=== PATIENT | female | born 1980 | race Two or more races ===

== ENCOUNTER → 2020-02-11 09:54 | Outpatient (BNVA) | payer OTHER, SELFPAY | PROVIDERS: PCP Internal Medicine; Referring Provider Internal Medicine; Visit Provider Dietitian, Registered | DX: Z76.89 Persons encountering health services in other specified circumstances (principal) ==

== ENCOUNTER → 2020-04-14 10:54 | Outpatient (BNVA) | payer OTHER, SELFPAY | PROVIDERS: PCP Internal Medicine; Visit Provider Dietitian, Registered | DX: Z76.89 Persons encountering health services in other specified circumstances (principal) ==

== ENCOUNTER 2020-04-26 15:45 | Outpatient (REF) | payer OTHER, SELFPAY ==
[2020-04-26 16:26] LABS: MANUAL DIFF FLAG NO
[2020-04-26 16:30] LABS: Basophils Percent Auto 0.3 % (0-2); Eosinophils Absolute Auto 0.1 X10*3/uL (0.0-0.4); Eosinophils Percent Auto 1.4 % (0-4); Hematocrit 43.2 % (37-47); Hemoglobin 14.1 g/dl (12.0-16.0); Imm Gran Abs Auto 0.02 X10*3/uL (0.00-0.03); Imm Gran Pct Auto 0.3 % (0.0-0.4); Lymphocytes Absolute Auto 1.7 X10*3/uL (1.2-4.9); Mean Corpuscular HGB Conc 32.6 g/dl (31.0-35.0); Mean Corpuscular Hemoglobin 29.6 pg (27.0-33.0); Mean Corpuscular Volume 90.6 fL (80-98); Mean Platelet Volume 10.8 fL (9.4-12.3); Monocytes Absolute Auto 0.4 X10*3/uL (0.1-1.2); Monocytes Percent Auto 6.3 % (2-11); Neutrophils Absolute Auto 4.2 X10*3/uL (2.0-8.3); Neutrophils Percent Auto 65.7 % (45-73); Platelet Count 247 X10*3/uL (160-400); Red Blood Count 4.77 X10*6/uL (4.20-5.50); Red Cell Distribution Width 12.8 % (11.0-16.0); White Blood Count 6.5 X10*3/uL (4.8-10.8)
[2020-04-26 17:04] LABS: Alanine Aminotransferase 56 U/L (0-31); Albumin Level 4.6 g/dL (3.5-5.0); Alkaline Phosphatase 103 U/L (39-117); Anion Gap 10 (12-20); Aspartate Amino Transferase 32 U/L (5-31); Bilirubin Total 0.6 mg/dL (0.0-1.0); Blood Urea Nitrogen 13 mg/dL (9-16); Calcium 9.6 mg/dL (8.4-10.2); Carbon Dioxide 31 mmol/L (22-29); Chloride 100 mmol/L (96-108); Cholesterol 221 mg/dL; Estimated Glomerular Filt Rate > 60; Glucose Fasting 99 mg/dL (60-99); HDL Cholesterol 101 mg/dL; LDL Cholesterol Calculated 107 mg/dl; Potassium 4.2 mmol/l (3.3-5.1); Sodium 137 mmol/L (135-145); Total Protein 7.3 g/dL (6.5-8.0); Triglycerides 66 mg/dL
[2020-04-26 17:23] LABS: TSH reflex Free T4 0.34 mIU/mL (0.32-4.0)
== END 2020-04-26 15:46 | disposition home or self-care (01) ==
LOC: HO.LAB 15:45
PROVIDERS: PCP Internal Medicine; Visit Provider Internal Medicine
DX: E66.3 Overweight (principal)
CPT/HCPCS: 36415; 80053; 80061; 84443; 85025

== ENCOUNTER 2020-06-20 14:44 | Outpatient (REF) | payer OTHER, SELFPAY ==
[2020-06-21 07:47] LABS: Syphilis Screen Nonreactive (Nonreactive)
[2020-06-21 08:09] LABS: HBc Num1 0.03 S/CO (0.00-0.79); HIV AB/AG Nonreactive (Nonreactive); HIV Num 1 0.07 S/CO (0.00-0.99); Hepatitis B Core Antibody Nonreactive (Nonreactive); ~HepC Num1 0.05 S/CO (0.00-0.79); ~Hepatitis C Antibody Nonreactive (Nonreactive)
[2020-06-21 09:21] LABS: BV Int Neg Control Negative (Negative); BV Int Pos Control Positive (Positive)
[2020-06-21 14:52] LABS: C. trachomatis RNA TMA NOT DETECTED (NOT DETECTED); N. gonorrhoeae RNA TMA NOT DETECTED (NOT DETECTED)
== END 2020-06-20 14:45 | disposition home or self-care (01) ==
LOC: HO.LAB 14:44
PROVIDERS: PCP Internal Medicine; Visit Provider Advanced Practice Midwife
DX: Z01.419 Encounter for gynecological examination (general) (routine) without abnormal findings (principal); F98.8 Other specified behavioral and emotional disorders with onset usually occurring in childhood and adolescence; F41.8 Other specified anxiety disorders; F17.210 Nicotine dependence, cigarettes, uncomplicated; Z11.59 Encounter for screening for other viral diseases; Z88.8 Allergy status to other drugs, medicaments and biological substances; Z11.4 Encounter for screening for human immunodeficiency virus [HIV]; Z11.3 Encounter for screening for infections with a predominantly sexual mode of transmission; Z11.8 Encounter for screening for other infectious and parasitic diseases
CPT/HCPCS: 36415; 86704; 86780; 86803; 87389; 87480; 87491; 87510; 87591; 87660

== ENCOUNTER → 2020-08-28 07:54 | Outpatient (BNVA) | payer OTHER, SELFPAY | PROVIDERS: PCP Internal Medicine; Visit Provider Internal Medicine Gastroenterology | DX: K21.9 Gastro-esophageal reflux disease without esophagitis (principal); K58.2 Mixed irritable bowel syndrome | CPT/HCPCS: Q3014 ==

== ENCOUNTER 2020-10-31 07:06 | Day surgery (SDC) | payer OTHER, SELFPAY ==
[2020-10-25 11:48] VITALS: BMI 27.4
--- NOTE | 2020-10-26 13:40 | HO.ANESPROP2 ---
Documented by User: Lisa Santosney 10/26/20 13:41 HPI - Anesthesia Eval Consult details Narrative: 40yo F for Upper Endoscopy and Colonoscopy PMF Active Problems Active Problems: All Active Problems (Updated 10/25/20 @ 11:47 by Bernice Wood) Overweight (BMI 25.0-29.9) (Acute) Chronic fatigue syndrome (Acute) GERD (gastroesophageal reflux disease) (Acute) Irritable bowel syndrome with both constipation and diarrhea (Acute) Anxiety (Acute) Past Medical History Medical History ADD (attention deficit disorder) Anxiety Depression Hx of chronic sinusitis Irritable bowel syndrome with both constipation and diarrhea Family History Family History Father Hypertension CVD (cardiovascular disease) Mother Diabetes Maternal Grandmother Liver problem Maternal Grandfather No problems noted. Paternal Grandfather Cancer Family/Other FH: mental illness Surgical History Surgical History History of incision and drainage Social History Social History Household Members: Spouse and Children Alcohol intake: current Alcohol intake frequency: does not drink Patient Tobacco Use Status: Current everyday Tobacco user Cigarettes Per Day: 6 Use of substances other than those prescribed or required for medical reasons: No Have you been hit, kicked, punched, or otherwise hurt by someone within the past year? If so, by whom?: No Are you DNR?: No Advance Directives: No Advance Directives Information Provided: No Advance Directives on File: No Patient : No FDLMP: 10/15/2020 : No Current occupational status: unemployed Meds Allergies Allergy/AdvReac Type Severity Reaction Status Date / Time naproxen [NAPROXEN] Allergy Mild HIVES Verified 10/31/20 07:38 neomycin [NEOMYCIN] Allergy Unknown FUNGAL Verified 10/31/20 07:38 INFECTION,bleeding Home Medications Medication Instructions Recorded Confirmed Last Taken Type ibuprofen 600 mg PO TID PRN 10/25/20 10/26/20 Unknown History Exam Exam Date and Time: October 26, 2020 1340 Height,Weight and Vital Signs: Height 5 ft 4 in Weight 72.575 kg Assessment and Plan Assessment Anesthesia Assessment: Chart Reviewed Documented by User: Kirt Lakhani MD 10/31/20 07:56 [facility] Past Medical History Medical History ADD (attention deficit disorder) Anxiety Depression Hx of chronic sinusitis Irritable bowel syndrome with both constipation and diarrhea Family History Family History Father Hypertension CVD (cardiovascular disease) Mother Diabetes Maternal Grandmother Liver problem Maternal Grandfather No problems noted. Paternal Grandfather Cancer Family/Other FH: mental illness Surgical History Surgical History History of incision and drainage Social History Social History Household Members: Spouse and Children Alcohol intake: current Alcohol intake frequency: does not drink Patient Tobacco Use Status: Current everyday Tobacco user Cigarettes Per Day: 6 Use of substances other than those prescribed or required for medical reasons: No Have you been hit, kicked, punched, or otherwise hurt by someone within the past year? If so, by whom?: No Are you DNR?: No Advance Directives: No Advance Directives Information Provided: No Advance Directives on File: No Patient : No FDLMP: 10/15/2020 : No Current occupational status: unemployed Meds Allergies Allergy/AdvReac Type Severity Reaction Status Date / Time naproxen [NAPROXEN] Allergy Mild HIVES Verified 10/31/20 07:38 neomycin [NEOMYCIN] Allergy Unknown FUNGAL Verified 10/31/20 07:38 INFECTION,bleeding Home Medications Medication Instructions Recorded Confirmed Last Taken Type ibuprofen 600 mg PO TID PRN 10/25/20 10/26/20 Unknown History Exam Airway Mallampati Class: II TM Dist: >3cm Neck ROM: Full Loose/Missing/Broken Teeth: No Assessment and Plan Assessment Anesthesia Assessment: Anesthesia Plan Discussed and Chart Reviewed Final Anesthetic Review NPO: Yes ASA Class: II Final Preanesthetic Review: No Changes in Pt Med Stat, Meds/Allgs Chart Reviewed, Consent Obtained/Reviewed and Anes Risks/Benef Reviewed Patient Risk: Low Procedure Risk: Low Anesthetic Plan Anesthetic Plan: MAC: Disposition: Standard PACU
[2020-10-31 07:21] VITALS: BP 126/82; PULSE 91; RESP 18; TEMP 36.4; O2SAT 98
[2020-10-31 07:26] LABS: UPreg QC Valid YES; Urine Pregnancy NEGATIVE (NEGATIVE)
[2020-10-31] MEDS: Lactated Ringers 1,000 ML 100 ML IVCONT (07:37)
--- NOTE | 2020-10-31 07:38 | PC.NURSE ---
PATIENT STATES SHE TOOK AMOXICILLIN AND PREDNISONE THIS AM FOR COLD SYMPTOMS/ASTHMA. STATES LAST DOSE OF PREDNISONE WAS THIS AM.
--- NOTE | 2020-10-31 07:46 | W.PM.OPN ---
Operative Note Operative Note Date of Service: 10/31/20 Narrative: Pre-op diagnosis: Abdominal pain, post prandial diarrhea Post-op diagnosis: other (Gastritis, diverticulosis, suboptimal prep) Procedure: FLEXIBLE TRANSORAL UPPER GASTROINTESTINAL ENDOSCOPY WITH BIOPSIES AND COLONOSCOPY TILL CECUM WITH BIOPSIES UPPER ENDOSCOPY Consent: Indications for the procedure and potential complications of bleeding, perforation, reaction to medications and missed diagnosis were discussed with the patient and informed consent was obtained. Instrument: Olympus GIF H 190 mid size upper endoscope Monitoring: Vital signs and clinical assessment, continuous EKG monitoring, Pulse oximetry, Carbon Dioxide monitoring and blood pressure monitoring were done throughout the procedure. Procedure: The patient was placed in the left lateral decubitis position and pre-procedure medications were administered and a bite block was placed. The endoscope was inserted into the mouth and advanced under direct vision to the third part of duodenum. A careful inspection was made as the upper endoscope was withdrawn including a retroflexed examination of the proximal stomach; Findings and interventions are described below. Findings: Larynx: Normal Esophagus: GE junction at 36 cms. No esophagitis or Al's. Stomach: Mild gastric erythema. Biopsies were obtained. Grade 2 flap valve on retroflexed examination of the cardia. Duodenum: Normal bulb and descending duodenum, Biopsies obtained from 3rd part of duodenum to check for celiac sprue. Intervention: Biopsies as noted above COLONOSCOPY PROCEDURE NOTE Consent: Indications for the procedure and potential complications of bleeding, perforation, reaction to medications and missed diagnosis were discussed with the patient and informed consent was obtained. Instrument: Olympus PCF H 190 L variable stiffness pediatric colonoscope Monitoring: Vital signs and clinical assessment, intermittent blood pressure monitoring, continuous EKG monitoring, Pulse oximetry and Carbon Dioxide monitoring were done throughout the procedure. Colon withdrawl time was 12 minutes. Procedure: The patient was placed in the left lateral decubitis position and pre-procedure medications were administered. After a digital rectal examination of the ano-rectum, the video colonoscope was inserted into the rectum and advanced through the colon to the proximal AC. It was not possible to advance further due to poor prep. The colonoscope was slowly withdrawn in a retrograde panoramic fashion and the colon mucosa was carefully examined including a retroflexed view of the rectum. Findings and interventions are described below. Procedure Difficulty: Colon was long and tortuous and there was recurrent loop formation. LLQ pressure applied to intubate the transverse colon Findings: Terminal Ileum: Not evaluated Cecum: Not evaluated due to poor prep Ascending Colon: Normal mucosa - Partially evaluated Transverse Colon: Normal mucosa - Partially evaluated Descending Colon: Normal mucosa - Partially evaluated Sigmoid Colon: Moderate diverticulosis Rectum: Normal Ano-rectum: Normal Colon preparation: Fair despite coious irrigation and poor in some areas of the colon Impression and Post Procedure Diagnosis: Endoscopy Findings: STOMACH: Gastritis DUODENUM: Normal - biopsied to check for celiac sprue Colonoscopy Findings: No polyps were detected. Random biopsies were obtained from the right and left colon Moderate diverticulosis seen in the sigmoid colon Plan: Await pathology results Patient has an appointment on 11/16/20 in the [facility] with Krys Bertrand M.D.. Repeat Colonoscopy interval based on path results - in 3-5 years due to fair to poor prep. Above findings were reviewed with the patient and GERD and diverticulosis handouts were given in the discharge area Surgeon: Krys Bertrand MD Anesthesia: MAC (Romelia Pritchett CRNA) Was an Hydro Generation Supervisor used for this Procedure?: Yes Hydro Generation Supervisor: Maria Teresa Roblero Estimated blood loss (mL): 0 Pathology: other (A- SMALL BOWEL BIOPSIES - R/O CELIACS B- GASTRIC ANTRUM BIOPSIES - R/O H.PYLORI C- RANDOM RIGHT COLON BIOPSIES -R/O MICROSCOPIC COLITIS D- RANDOM LEFT COLON BIOPSIES- R/O MICROSCO) Condition: stable Disposition: PACU
--- NOTE | 2020-10-31 07:46 | MHC.SHP ---
Pre-Procedural Eval Section A Date of Service: 10/31/20 The patient is an INPATIENT: No The History & Physical has been completed within 30 days and I have reviewed it.: No Section B Chief Complaint: reflux disease,IBS Details of Present Illness: GERD, abdominal pain, post prandial diarrhea Relevant Family History (Specify if Yes): Yes Relevant Social History: Tobacco Use Present Medications: see Short Stay Collaborative assessment Medical History: Significant History (ADD (attention deficit disorder) Anxiety Depression Irritable bowel syndrome with both constipation and diarrhea) History of Previous Operations: Relevant previous surgery/procedure and date(s) (History of incision and drainage) Allergies: Allergies Allergy/AdvReac Type Severity Reaction Status Date / Time naproxen [NAPROXEN] Allergy Mild HIVES Verified 10/31/20 07:38 neomycin [NEOMYCIN] Allergy Unknown FUNGAL Verified 10/31/20 07:38 INFECTION,bleeding Review of Systems Sugical H&P ROS: Negative: Constitution, Cardiovascular and Respiratory and Yes, Specify: Gastrointestinal (abdominal pain, post prandial diarrhea) Exam Surgical H&P Exam: Normal: Heart, Normal: Lungs, Normal: Extremities and Normal: Abdomen Plan Diagnosis/Plan: Unchanged I have reviewed the history and physical and performed a pertinent physical examination on my patient. No changes have occurred unless specified.
[2020-10-31 09:04] VITALS: BP 106/77; PULSE 85; RESP 14; TEMP 36.6; O2SAT 97
[2020-10-31 09:18] VITALS: BP 121/87; PULSE 86; RESP 18; TEMP 36.6; O2SAT 98
== END 2020-10-31 10:10 | disposition home or self-care (01) ==
PROVIDERS: Nurse Practitioner; PCP Internal Medicine; Visit Provider Internal Medicine Gastroenterology
PROC: (CPT 45380; principal; 2020-10-31 08:20)
DX: K58.2 Mixed irritable bowel syndrome (principal); K57.30 Diverticulosis of large intestine without perforation or abscess without bleeding; K21.9 Gastro-esophageal reflux disease without esophagitis; K29.50 Unspecified chronic gastritis without bleeding; F41.9 Anxiety disorder, unspecified; F32.9 Major depressive disorder, single episode, unspecified; J32.9 Chronic sinusitis, unspecified; F17.210 Nicotine dependence, cigarettes, uncomplicated; Z79.1 Long term (current) use of non-steroidal anti-inflammatories (NSAID); Z79.899 Other long term (current) drug therapy; Z88.1 Allergy status to other antibiotic agents; Z88.8 Allergy status to other drugs, medicaments and biological substances
CPT/HCPCS: 45380; 43239; 81025; 88305; 88342; J3010

== ENCOUNTER → 2020-11-16 13:50 | Outpatient (BNVA) | payer OTHER, SELFPAY | PROVIDERS: PCP Internal Medicine; Referring Provider Internal Medicine; Visit Provider Internal Medicine Gastroenterology | DX: K21.9 Gastro-esophageal reflux disease without esophagitis (principal); K58.2 Mixed irritable bowel syndrome; R79.89 Other specified abnormal findings of blood chemistry | CPT/HCPCS: 99212 ==

== ENCOUNTER 2020-12-07 14:04 | Outpatient (REF) | payer OTHER, SELFPAY ==
--- NOTE | ~2020-12-07 | MM_ITS ---
EXAMINATION: MM SCREENING DIGITAL BREAST TOMOSYNTHESIS, BILATERAL CLINICAL INFORMATION: Screening. Asymptomatic. Age 40. No prior breast imaging. The lifetime risk of breast cancer based on the Tyrer-Cuzick Model is 14%. COMPARISON: None (current study represents initial baseline exam). TECHNIQUE: Digital breast tomosynthesis is performed in both the craniocaudal and mediolateral oblique views along with computer-aided detection (CAD). Synthesized 2D images are generated from the tomosynthesis. FINDINGS: There are scattered areas of fibroglandular density (ACR BI-RADS breast composition Category b). There are no significant masses, abnormal calcifications, or other abnormalities. The axilla and skin contours are unremarkable. MM/MM tomosynthesis screening BI IMPRESSION: No mammographic evidence of malignancy. ASSESSMENT: BI-RADS 1: Negative RECOMMENDATION: Routine annual mammography screening. This patient's information was entered into a reminder system with a target due date for their next mammogram.
== END 2020-12-07 14:05 | disposition home or self-care (01) ==
LOC: HO.MAMMO 14:04
PROVIDERS: Visit Provider Internal Medicine
DX: Z12.31 Encounter for screening mammogram for malignant neoplasm of breast (principal)
CPT/HCPCS: 77063; 77067

== ENCOUNTER 2021-02-03 22:16 | Emergency (ER) | payer OTHER, SELFPAY ==
[2021-02-03 22:23] VITALS: BP 142/81; BP 145/96; PULSE 91; PULSE 96; RESP 16; TEMP 36.5; O2SAT 97; BMI 29.2
--- NOTE | 2021-02-03 23:07 | ED_ITS ---
HPI - Alcohol General Chief Complaint: Nausea/Vomiting/Diarrhea Stated Complaint: VOMITING AFTER DRINKING LAST NIGHT Time Seen by Provider: 02/03/21 23:00 Source: patient and EMS Mode of arrival: EMS Limitations: no limitations History of Present Illness HPI narrative: Patient comes emergency room complaining of nausea and vomiting after drinking a large amount of Tequila. Patient states she went to a and then started drinking quite a bit. Patient complaining of anxiety, no other complaints. Patient did not fall, no loss of consciousness. Related Data Home Medications Medication Instructions Recorded Confirmed ibuprofen 600 mg tablet 600 mg PO TID PRN 10/25/20 12/26/20 Previous Rx's Medication Instructions Recorded docusate sodium 100 mg capsule 100 mg PO DAILY #90 cap 06/06/20 (DOK) benztropine 0.5 mg tablet 0.5 mg PO BEDTIME #90 cap 07/13/20 loratadine 10 mg tablet 10 mg PO DAILY #90 cap 07/13/20 omeprazole 20 mg capsule,delayed 20 mg PO BID #60 cap 09/17/20 release bupropion HCl 300 mg 24 hr tablet, 300 mg PO QAM #90 cap 09/18/20 extended release multivitamin (Daily-Zoraida) 1 tab PO DAILY #90 tab 10/02/20 ziprasidone HCl 20 mg capsule 20 mg PO TID #270 cap 10/16/20 bisacodyl 5 mg tablet,delayed 5 - 10 mg PO BEDTIME PRN 30 Days 12/05/20 release (Dulcolax (bisacodyl)) #60 tab clonazepam 1 mg tablet 1 mg PO .four times a day PRN 30 12/05/20 Days #120 tab plecanatide 3 mg tablet (Trulance) 3 mg PO DAILY 30 Days #30 tab 12/06/20 oxcarbazepine 300 mg tablet 300 mg PO TID 90 Days #270 cap 12/26/20 dextroamphetamine-amphetamine 15 15 mg PO BID PRN 30 Days #60 tab 01/19/21 mg tablet sennosides 8.6 mg tablet (Senna 17.2 mg PO BEDTIME PRN #60 cap 01/25/21 Laxative) ondansetron HCl 4 mg tablet 4 mg PO Q6H PRN #10 tab 02/04/21 (Zofran) Allergies Allergy/AdvReac Type Severity Reaction Status Date / Time neomycin [NEOMYCIN] Allergy Intermediate FUNGAL Verified 12/26/20 13:18 INFECTION,bleeding naproxen [NAPROXEN] Allergy Mild HIVES Verified 12/26/20 13:18 Review of Systems Review of Systems: Constitutional : No Weight loss, No Fever, No Chills, No Night Sweats, No Fatigue, No Malaise ENT/Mouth : No Hearing loss, No Ear Pain, No Nasal Congestion, No Sinus Pain, No Hoarseness, No sore throat, No Rhinorrhea, No Swallowing Difficulty Eyes: No Eye Pain, No Swelling, No Redness, No Foreign Body, No Discharge, No Vision Changes Cardiovascular : No Chest Pain, No SOB, No Dyspnea on Exertion, No Orthopnea, No Edema, No Palpitations Respiratory : No Cough, No Sputum, No Wheezing, No Smoke Exposure, No Dyspnea Gastrointestinal : Complaining of nausea and vomiting, No Diarrhea, No Constipation, No abdominal Pain, No Hematochezia, No Melena Genitourinary : no irregular bleeding, No Dysuria, No Urinary Frequency, No Hematuria, No Urinary Incontinence, No Urgency, No Flank Pain, No Urinary Flow Changes, No Hesitancy Musculoskeletal : No joint pain, No Myalgias, No Joint Swelling Skin : No Skin Lesions, No rash Neuro : No Weakness, No Numbness, No Paresthesias, No Loss of Consciousness, No Dizziness, No Headache Psych : No Anxiety/Panic, No Depression, No SI/HI/AH/VH, No Social Issues, Heme/Lymph: No Bruising, No Bleeding,No Lymphadenopathy Endocrine : No Polyuria, No Polydipsia, No Temperature Intolerance PMFSH Past Medical History Medical History ADD (attention deficit disorder) Anxiety Bipolar 1 disorder Depression Dyslipidemia Hx of chronic sinusitis Irritable bowel syndrome with both constipation and diarrhea Transaminitis Surgical History History of incision and drainage Family History Family History Father Hypertension CVD (cardiovascular disease) Mother Diabetes Maternal Grandmother Liver problem Maternal Grandfather No problems noted. Paternal Grandfather Cancer Family/Other FH: mental illness Social History Social History (Updated 12/26/20 @ 13:26 by Allyson Rahman MD) Household Members: Spouse and Children Housing: House Alcohol intake: current Alcohol intake frequency: holidays/special occasions only Alcohol type: wine Patient Tobacco Use Status: Current everyday Tobacco user Tobacco use type: Cigarette Cigarettes Per Day: 3 Advance Directives: No Advance Directives Information Provided: No Patient : No Current occupational status: unemployed Physical Exam Vital Signs: Vital Signs: Last Vital Signs Temp 97.6 F 02/04/21 00:00 Pulse 95 02/04/21 00:00 Resp 18 02/04/21 00:00 BP 138/95 H 02/04/21 00:00 Pulse Ox 97 02/04/21 00:00 Body Mass Index 29.2 Const: Other: Appearance: Alert. Oriented X3. Actively vomiting Eyes: Pupils equal, round and reactive to light. ENT: Pharynx normal. Neck: Normal inspection. Neck supple. No lymph nodes noted. No crepitus CVS: Normal heart rate and rhythm. Pulses normal. Normal S1 and S2 Respiratory: No respiratory distress. Breath sounds normal. No Wheezing. No rales Abdomen: Soft and nontender. No rigidity. No distention. Skin: Skin warm and dry. Normal skin color. Normal skin turgor. Extremities: No lower extremity edema. No lower extremity edema. No Lacerations. No Rash Neuro: Oriented X 3. No motor deficit. No sensory deficit. Moving all exte rmities. No slurred speech. Course Course Course Narrative: After IV fluids and medication for nausea vomiting, patient states that she feels much better, no longer vomiting. Patient ready for discharge. Discharge Plan Discharge Clinical Impression: Alcohol abuse Patient Disposition: Home, Self-Care Instructions: Abuse of Alcohol (ED) Additional Instructions: Please follow-up with your primary care physician tomorrow. If you have any worsening or new symptoms, please return to the emergency room or call 911 Prescriptions: New ondansetron HCl [Zofran] 4 mg tablet 4 mg PO Q6H PRN (Reason: nausea and vomiting) Qty: 10 RF: 0 No Action docusate sodium [DOK] 100 mg capsule 100 mg PO DAILY Qty: 90 RF: 3 benztropine 0.5 mg tablet 0.5 mg PO BEDTIME Qty: 90 RF: 3 loratadine 10 mg tablet 10 mg PO DAILY Qty: 90 RF: 6 omeprazole 20 mg capsule,delayed release(DR/EC) 20 mg PO BID Qty: 60 RF: 6 bupropion HCl 300 mg tablet extended release 24 hr 300 mg PO QAM Qty: 90 RF: 3 multivitamin [Daily-Zoraida] Tablet 1 tab PO DAILY Qty: 90 RF: 3 ziprasidone HCl 20 mg capsule 20 mg PO TID Qty: 270 RF: 3 bisacodyl [Dulcolax (bisacodyl)] 5 mg tablet,delayed release (DR/EC) 5 - 10 mg PO BEDTIME PRN (Reason: constipation) 30 Days Qty: 60 RF: 1 clonazepam 1 mg tablet 1 mg PO .four times a day PRN (Reason: anxiety) 30 Days Qty: 120 RF: 0 Trulance 3 mg tablet 3 mg PO DAILY 30 Days Qty: 30 RF: 4 dextroamphetamine-amphetamine 15 mg tablet 15 mg PO BID PRN (Reason: attention) 30 Days Qty: 60 RF: 0 sennosides [Senna Laxative] 8.6 mg tablet 17.2 mg PO BEDTIME PRN (Reason: constipation) Qty: 60 RF: 4 ibuprofen 600 mg tablet 600 mg PO TID PRN (Reason: Pain) RF: 0 oxcarbazepine 300 mg tablet 300 mg PO TID 90 Days Qty: 270 RF: 1
[2021-02-03] MEDS: Prochlorperazine Edisylate 10 MG/2 ML VIAL IVPUSH (23:18)
[2021-02-03] MEDS: 0.9 % Sodium Chloride 1,000 ML 999 ML IVCONT (23:18)
[2021-02-04] VITALS: BP 138/95; PULSE 95; RESP 18; TEMP 36.4; O2SAT 97
== END 2021-02-04 01:13 | disposition home or self-care (01) ==
PROVIDERS: Emergency Provider Emergency Medicine; PCP Internal Medicine
DX: F10.10 Alcohol abuse, uncomplicated (principal); Y90.9 Presence of alcohol in blood, level not specified; R11.2 Nausea with vomiting, unspecified; F17.210 Nicotine dependence, cigarettes, uncomplicated; Z71.6 Tobacco abuse counseling
CPT/HCPCS: 96361; 96374; 99284

== ENCOUNTER 2021-05-11 14:08 | Outpatient (REF) | payer OTHER, SELFPAY ==
[2021-05-11 16:17] LABS: Alanine Aminotransferase 58 U/L (0-31); Albumin Level 4.3 g/dL (3.5-5.0); Alkaline Phosphatase 94 U/L (39-117); Anion Gap 13 (12-20); Aspartate Amino Transferase 25 U/L (5-31); Bilirubin Total 0.9 mg/dL (0.0-1.0); Blood Urea Nitrogen 24 mg/dL (9-16); Calcium 9.9 mg/dL (8.4-10.2); Carbon Dioxide 26 mmol/L (22-29); Chloride 103 mmol/L (96-108); Cholesterol 218 mg/dL; Estimated Glomerular Filt Rate > 60; Glucose Fasting 97 mg/dL (60-99); HDL Cholesterol 73 mg/dL; Iron 128 mcg/dL (30-160); LDL Cholesterol Calculated 124 mg/dl; Percent Iron Saturation 32 % (15-50); Potassium 4.1 mmol/L (3.3-5.1); Sodium 138 mmol/L (135-145); Total Iron Binding Capacity 396 mcg/dL (228-428); Total Protein 7.2 g/dL (6.5-8.0); Triglycerides 107 mg/dL; Unsaturated Iron Binding 268 ug/dL
[2021-05-16 15:06] LABS: Vitamin D 25-OH, D2 <4 ng/mL; Vitamin D 25-OH, D3 24 ng/mL; Vitamin D 25-OH, Total 24 ng/mL (30-100)
== END 2021-05-11 14:09 | disposition home or self-care (01) ==
LOC: HO.LAB 14:08
PROVIDERS: PCP Internal Medicine; Visit Provider Internal Medicine
DX: R79.89 Other specified abnormal findings of blood chemistry (principal); D64.9 Anemia, unspecified; E78.5 Hyperlipidemia, unspecified; E55.9 Vitamin D deficiency, unspecified
CPT/HCPCS: 36415; 80053; 80061; 82306; 83540

== ENCOUNTER 2021-06-21 14:44 | Outpatient (REF) | payer OTHER, SELFPAY ==
[2021-06-22 01:54] LABS: CT PCR NOT DETECTED (Not Detect.); NG PCR NOT DETECTED (Not Detect.)
[2021-06-22 13:10] LABS: BV Int Neg Control Negative (Negative); BV Int Pos Control Positive (Positive)
[2021-06-28 01:46] LABS: HPV mRNA E6/E7 rflx Not Detected (Not Detected)
== END 2021-06-21 14:45 | disposition home or self-care (01) ==
LOC: HO.LAB 14:44
PROVIDERS: Visit Provider Advanced Practice Midwife
DX: Z01.411 Encounter for gynecological examination (general) (routine) with abnormal findings (principal); Z11.51 Encounter for screening for human papillomavirus (HPV); N93.0 Postcoital and contact bleeding; Z20.2 Contact with and (suspected) exposure to infections with a predominantly sexual mode of transmission
CPT/HCPCS: 87480; 87491; 87510; 87591; 87624; 87660; 88142

== ENCOUNTER 2021-07-18 15:59 | Outpatient (REF) | payer OTHER, SELFPAY ==
--- NOTE | ~2021-07-18 | US_ITS ---
EXAMINATION: US PELVIS CLINICAL INFORMATION: Post-coital and contact bleeding. Last menstrual period 06/11/2021. COMPARISON: None. TECHNIQUE: Ultrasound of the pelvis is performed using both transabdominal and transvaginal transducers along with Doppler. Transvaginal imaging is performed due to inadequate visualization transabdominally. FINDINGS: UTERUS: The uterus is anteverted and measures 9.6 x 4.7 x 5.4 cm. The double wall endometrial thickness is 0.4 mm. The uterus is smooth in contour and has normal myometrial echogenicity. There is a heterogeneous mass-like area within the myometrium that displaces the endometrium. This measures 1.7 x 1.6 x 1.8 cm with punctate echogenic foci suggestive of microcalcifications. There is a very small central cystic region. Doppler interrogation does demonstrate flow within this mass. ADNEXA: Both ovaries are visualized. There is normal color flow to the adnexa. There is no ovarian torsion. There is no pelvic ascites or fluid collection. Right ovary measures 2.8 x 1.6 x 1.6 cm. Left ovary measures 2.8 x 2.0 x 1.5 cm. US/US pelvic and transvaginal IMPRESSION: Indeterminate heterogeneous vascular mass within the myometrium that displaces the endometrial canal. Consider evaluation with pelvic MRI versus tissue biopsy.
== END 2021-07-18 16:00 | disposition home or self-care (01) ==
LOC: HO.US 15:59
PROVIDERS: Visit Provider Advanced Practice Midwife
DX: N93.0 Postcoital and contact bleeding (principal)
CPT/HCPCS: 76830; 76856

== ENCOUNTER → 2021-09-05 10:52 | Outpatient (BNVA) | payer OTHER, SELFPAY | PROVIDERS: PCP Internal Medicine; Visit Provider Advanced Practice Midwife | DX: Z13.89 Encounter for screening for other disorder (principal) ==

== ENCOUNTER → 2021-09-05 11:30 | Outpatient (BNVA) | payer OTHER, SELFPAY | PROVIDERS: PCP Internal Medicine; Visit Provider Advanced Practice Midwife | DX: N85.8 Other specified noninflammatory disorders of uterus (principal) | CPT/HCPCS: Q3014 ==

== ENCOUNTER 2021-09-19 19:02 | Outpatient (REF) | payer OTHER, SELFPAY ==
--- NOTE | ~2021-09-19 | MR_ITS ---
EXAMINATION: MRI PELVIS WITH AND WITHOUT CONTRAST CLINICAL INFORMATION: Reason for Exam N85.8 - Other specified noninflammatory disorders of uterus COMPARISON: Pelvic ultrasound 07/18/2021 TECHNIQUE: Multiple routine MRI sequences through the pelvis were obtained before and after the uneventful administration of 7.5 mL of Gadavist gadolinium-based IV contrast. FINDINGS: UTERUS: The uterus is anteverted with normal configuration. The uterus measures 10.1 x 4.6 x 5.4 cm. The endometrial stripe measures 4 mm in thickness. There is subtle focal thickening of the junctional zone along the posterior uterine body in the midline. This area measuring approximately 2.2 x 2.6 x 2.7 cm is poorly defined but contains evidence of cystic change and foci of T1 hyperintensity. CERVIX: Unremarkable. VAGINA: Unremarkable. RIGHT OVARY: Normal follicular pattern. LEFT OVARY: Normal follicular pattern. KIDNEYS: Two normally positioned kidneys are seen. No hydronephrosis. BLADDER: Unremarkable. PELVIC FREE FLUID: No free fluid or ascites. LYMPH NODES: No bulky pelvic lymphadenopathy. MR/MR pelvis wo/w con IMPRESSION: 2.2 x 2.6 x 2.7 cm focal thickening of the junctional zone posterior uterine body with evidence of cystic change and foci of T1 hyperintensity most likely represents adenomyoma.
== END 2021-09-19 19:03 | disposition home or self-care (01) ==
LOC: HO.MRI 19:02
PROVIDERS: Visit Provider Advanced Practice Midwife
DX: N85.8 Other specified noninflammatory disorders of uterus (principal)
CPT/HCPCS: 72197; A9585

== ENCOUNTER → 2021-09-20 13:44 | Outpatient (BNVA) | payer OTHER, SELFPAY | PROVIDERS: PCP Internal Medicine; Referring Provider Internal Medicine; Visit Provider Internal Medicine Gastroenterology | DX: K58.2 Mixed irritable bowel syndrome (principal); K21.9 Gastro-esophageal reflux disease without esophagitis; R53.82 Chronic fatigue, unspecified; R74.01 Elevation of levels of liver transaminase levels | CPT/HCPCS: 99212 ==

== ENCOUNTER → 2021-09-28 11:12 | Outpatient (BNVA) | payer OTHER, SELFPAY | PROVIDERS: Visit Provider Advanced Practice Midwife | DX: N93.0 Postcoital and contact bleeding (principal); D26.9 Other benign neoplasm of uterus, unspecified | CPT/HCPCS: Q3014 ==

== ENCOUNTER 2021-12-10 13:53 | Outpatient (REF) | payer OTHER, SELFPAY ==
--- NOTE | ~2021-12-10 | MM_ITS ---
EXAMINATION: MM SCREENING DIGITAL BREAST TOMOSYNTHESIS, BILATERAL CLINICAL INFORMATION: Screening. Asymptomatic. The lifetime risk of breast cancer based on the Tyrer-Cuzick Model is 14%. COMPARISON: Mammography: 12/07/2020 (baseline) TECHNIQUE: Digital breast tomosynthesis is performed in both the craniocaudal and mediolateral oblique views along with computer-aided detection (CAD). Synthesized 2D images are generated from the tomosynthesis. FINDINGS: There are scattered areas of fibroglandular density (ACR BI-RADS breast composition Category b). There are no significant masses, abnormal calcifications, or other abnormalities. Parenchymal pattern is similar to baseline exam. The axilla and skin contours are unremarkable. No significant changes. MM/MM tomosynthesis screening BI IMPRESSION: No mammographic evidence of malignancy. ASSESSMENT: BI-RADS 1: Negative RECOMMENDATION: Routine annual mammography screening. This patient's information was entered into a reminder system with a target due date for their next mammogram.
== END 2021-12-10 13:54 | disposition home or self-care (01) ==
LOC: HO.MAMMO 13:53
PROVIDERS: PCP Internal Medicine; Visit Provider Advanced Practice Midwife
DX: Z12.31 Encounter for screening mammogram for malignant neoplasm of breast (principal)
CPT/HCPCS: 77063; 77067

== ENCOUNTER → 2022-02-21 12:16 | Outpatient (BNVA) | payer OTHER, SELFPAY | PROVIDERS: PCP Internal Medicine; Visit Provider Internal Medicine Gastroenterology | DX: R79.89 Other specified abnormal findings of blood chemistry (principal); K21.9 Gastro-esophageal reflux disease without esophagitis; K58.2 Mixed irritable bowel syndrome | CPT/HCPCS: Q3014 ==

== ENCOUNTER → 2022-07-26 13:38 | Outpatient (BNVA) | payer OTHER, SELFPAY | PROVIDERS: PCP Internal Medicine; Visit Provider Advanced Practice Midwife ==

== ENCOUNTER 2022-08-08 14:58 | Outpatient (REF) | payer OTHER, SELFPAY ==
--- NOTE | ~2022-08-08 | US_ITS ---
EXAMINATION: US PELVIS CLINICAL INFORMATION: Benign uterine neoplasm; the last menstrual period was on 08/02/2022. COMPARISON: MRI pelvis dated 09/19/2021; pelvic ultrasound dated 07/21/2021. TECHNIQUE: Ultrasound of the pelvis is performed using both transabdominal and transvaginal transducers along with Doppler. Transvaginal imaging is performed due to inadequate visualization transabdominally. FINDINGS: Uterus: The uterus is anteverted and measures 9.4 x 4.1 x 4.6 cm. The uterus is anteverted and anteflexed. The double wall endometrial thickness is 7 mm. A small amount of nonspecific fluid is seen within the endocervical canal. The uterus is smooth in contour and has normal myometrial echogenicity. FIBROIDS: There is 1 fibroid seen. 1. Location: Posterior body, subendometrial. Size: 1.7 x 1.3 x 1.3 cm. Fibroid characteristics: Heterogeneous echotexture. Adnexa: Both ovaries are visualized. There is normal color flow to the adnexa. There is no ovarian torsion. There is no pelvic ascites or fluid collection. Right ovary measures 2.9 x 2.7 x 2.2 cm, volume 9.0 mL. The right ovary contains a 1.7 x 1.3 x 1.4 cm benign, simple cyst. Left ovary measures 2.3 x 1.4 x 1.5 cm, volume 2.5 mL. The left ovary contains a 7 x 5 x 6 mm hyperechoic collection, likely hemorrhagic cyst. This shows no associated color Doppler flow. US/US pelvic and transvaginal IMPRESSION: 1. A 1.7 cm pelvic mass is noted, possibly an adenomyoma or leiomyoma. Please see the MRI report dated 09/19/2021. Dimensions have diminished in the interim. 2. A 1.7 cm benign, simple right ovarian cyst is seen, for which no imaging follow-up is recommended. 3. A 7 mm hyperechoic, avascular focus is seen within the left ovary, likely a small hemorrhagic cyst.
== END 2022-08-08 14:59 | disposition home or self-care (01) ==
LOC: HO.US 14:58
PROVIDERS: PCP Internal Medicine; Visit Provider Advanced Practice Midwife
DX: D26.9 Other benign neoplasm of uterus, unspecified (principal)
CPT/HCPCS: 76830; 76856

== ENCOUNTER 2022-08-08 15:50 | Outpatient (REF) | payer OTHER, SELFPAY ==
[2022-08-08 18:24] LABS: Alanine Aminotransferase 49 U/L (0-31); Albumin Level 4.5 g/dL (3.5-5.0); Alkaline Phosphatase 87 U/L (39-117); Anion Gap 12 (12-20); Aspartate Amino Transferase 25 U/L (5-31); Bilirubin Total 0.8 mg/dL (0.0-1.0); Blood Urea Nitrogen 16 mg/dL (9-16); Calcium 9.4 mg/dL (8.4-10.2); Carbon Dioxide 27 mmol/L (22-29); Chloride 98 mmol/L (96-108); Cholesterol 207 mg/dL; Estimated Glomerular Filt Rate > 60; Glucose Fasting 83 mg/dL (60-99); HDL Cholesterol 92 mg/dL; LDL Cholesterol Calculated 100 mg/dl; Potassium 4.2 mmol/L (3.3-5.1); Sodium 133 mmol/L (135-145); Total Protein 6.9 g/dL (6.5-8.0); Triglycerides 77 mg/dL
[2022-08-08 18:39] LABS: Vitamin D 25-OH Total 26.4 ng/mL (>30)
== END 2022-08-08 15:51 | disposition home or self-care (01) ==
LOC: HO.LAB 15:50
PROVIDERS: Advanced Practice Midwife; PCP Internal Medicine; Visit Provider Internal Medicine
DX: Z00.00 Encounter for general adult medical examination without abnormal findings (principal); R23.2 Flushing; R53.83 Other fatigue; E78.5 Hyperlipidemia, unspecified; E55.9 Vitamin D deficiency, unspecified
CPT/HCPCS: 36415; 80053; 80061; 82306; 84443

== ENCOUNTER → 2022-10-02 11:40 | Outpatient (BNVA) | payer OTHER, SELFPAY | PROVIDERS: PCP Internal Medicine; Visit Provider Advanced Practice Midwife | DX: Z71.2 Person consulting for explanation of examination or test findings (principal); D25.9 Leiomyoma of uterus, unspecified; N83.201 Unspecified ovarian cyst, right side; N83.202 Unspecified ovarian cyst, left side | CPT/HCPCS: 99212 ==

== ENCOUNTER 2022-11-01 11:04 | Outpatient (REF) | payer OTHER, SELFPAY ==
--- NOTE | ~2022-11-01 | US_ITS ---
EXAMINATION: US PELVIS CLINICAL INFORMATION: Benign uterine neoplasm. COMPARISON: Ultrasound of 08/08/2022 and 07/18/2021. MRI of 09/19/2021 TECHNIQUE: Ultrasound of the pelvis is performed using both transabdominal and transvaginal transducers along with Doppler. Transvaginal imaging is performed due to inadequate visualization transabdominally. FINDINGS: UTERUS: The uterus is anteverted and measures 9.9 x 4.5 x 6.0 cm. Nabothian cysts present. The double wall endometrial thickness is 12 mm. The uterus is smooth in contour and has normal myometrial echogenicity. No visualized fibroid identified. The previously noted approximately 2.7 cm largest dimension uterine body mass which was felt to represent an adenomyoma is not identified on today's study. ADNEXA: Both ovaries are visualized. There is normal color flow to the adnexa. There is no ovarian torsion. There is no pelvic ascites or fluid collection. Right ovary measures 3.4 x 2.0 x 2.7 cm. Volume of 9.7 mL. No ovarian abnormality appreciated. Left ovary measures 3.2 x 1.5 x 1.7 cm. Volume of 4.1 mL. The previously noted hyperechoic region is not identified on today's study and was likely a hemorrhagic cyst. US/US pelvic and transvaginal IMPRESSION: No significant pelvic abnormality appreciated.
== END 2022-11-01 11:05 | disposition home or self-care (01) ==
LOC: HO.US 11:04
PROVIDERS: PCP Internal Medicine; Visit Provider Advanced Practice Midwife
DX: D21.9 Benign neoplasm of connective and other soft tissue, unspecified (principal); N83.209 Unspecified ovarian cyst, unspecified side
CPT/HCPCS: 76830; 76856

== ENCOUNTER 2022-11-12 08:49 | Outpatient (AMB) | payer OTHER, SELFPAY ==
--- NOTE | 2022-11-12 08:49 | MHC.OFFVIS ---
Intake Intake Visit Reasons: Ultra sound follow up Intake Note: The patient agreed to use of a medical lab tech instructor during this encounter. Scribed for DEAN Todd by Ashely Jones medical lab tech instructor, on 11/12/2022 at 8:58 am EST. Human Resources Operations Manager Required: No Allergies neomycin [NEOMYCIN] Allergy (Intermediate, Verified 11/12/22 08:51) FUNGAL INFECTION,bleeding naproxen [NAPROXEN] Allergy (Mild, Verified 11/12/22 08:51) HIVES Is last menstrual period known: Yes Last menstrual period: 11/10/22 Post menopausal: No HPI HPI Comments History of Present Illness Details Doximity live video 8:58 pm - 9:05 am. Phone Call due to Covid-19 Pandemic. Video was utilized. She presents via phone/live video to discuss US results. History of dysmenorrhea. Reports her last menses her heavy and pain symptoms have lessen and is not bleeding heavy. [facility] Medical History ADD (attention deficit disorder) Anxiety Bipolar 1 disorder Depression Dyslipidemia Fibroids Hx of chronic sinusitis Irritable bowel syndrome with both constipation and diarrhea Mass of uterus determined by ultrasound Right ovarian cyst Transaminitis Uterine fibroid Surgical History History of incision and drainage Family History Father Hypertension CVD (cardiovascular disease) Mother Diabetes Maternal Grandmother Liver problem Maternal Grandfather No problems noted. 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 US PELVIS CLINICAL INFORMATION:? Benign uterine neoplasm. COMPARISON: Ultrasound of 08/08/2022 and 07/18/2021. MRI of 09/19/2021 TECHNIQUE: Ultrasound of the pelvis is performed using both transabdominal and transvaginal transducers along with Doppler. Transvaginal imaging is performed due to inadequate visualization transabdominally. FINDINGS: UTERUS: The uterus is anteverted and measures 9.9 x 4.5 x 6.0 cm. Nabothian cysts present. The double wall endometrial thickness is 12 mm.? The uterus is smooth in contour and has normal myometrial echogenicity. ? No visualized fibroid identified. The previously noted approximately 2.7 cm largest dimension uterine body mass which was felt to represent an adenomyoma is not identified on today's study. ADNEXA: Both ovaries are visualized. There is normal color flow to the adnexa. There is no ovarian torsion. There is no pelvic ascites or fluid collection. Right ovary measures 3.4 x 2.0 x 2.7 cm. Volume of 9.7 mL. No ovarian abnormality appreciated. Left ovary measures 3.2 x 1.5 x 1.7 cm. Volume of 4.1 mL. The previously noted hyperechoic region is not identified on today's study and was likely a hemorrhagic cyst. US/US pelvic and transvaginal IMPRESSION: No significant pelvic abnormality appreciated. Assessment & Plan Assessment & Plan (1) Encounter to discuss test results: Code(s): Z71.2 - Person consulting for explanation of examination or test findings Plan: Discussed: US findings of: The uterus is anteverted and measures 9.9 x 4.5 x 6.0 cm. Nabothian cysts present. The double wall endometrial thickness is 12 mm.? The uterus is smooth in contour and has normal myometrial echogenicity. No visualized fibroid identified. The previously noted approximately 2.7 cm largest dimension uterine body mass which was felt to represent an adenomyoma is not identified on today's study. ADNEXA: Both ovaries are visualized. There is normal color flow to the adnexa. There is no ovarian torsion. There is no pelvic ascites or fluid collection. Advised to call for any abnormal bleeding, pelvic pain, increased abdominal pressure or bloating for sooner evaluation. US yearly unless otherwise indicated. Advised to use 3 Advil 200 mg (600 milligrams) with food or heating pad for pain management (patient takes Advil for IBS). All of her questions and concerns were addressed to the best of my ability and shared decision making. She is agreeable to plan of care. Telehealth Telehealth Location of provider rendering services: practice address Location of patient: address on file Patient Identification confirmed using: Name, : Yes Telehealth method: video Patient verbally consented to treatment: Yes Patient verbally consented to billing insurance company: Yes Patient informed of any privacy concerns related to visit: Yes Coding Level of Care Code Tele Est Pt Level 3 (20820) Diagnoses Encounter to discuss test results Z71.2
== END 2022-11-12 09:50 | disposition home or self-care (01) ==
LOC: HO.HWS 08:49
PROVIDERS: PCP Internal Medicine; Visit Provider Advanced Practice Midwife
DX: D26.9 Other benign neoplasm of uterus, unspecified (principal); Z71.2 Person consulting for explanation of examination or test findings
CPT/HCPCS: 99213

== ENCOUNTER → 2022-11-12 08:49 | Outpatient (BNVA) | payer OTHER, SELFPAY | PROVIDERS: PCP Internal Medicine; Visit Provider Advanced Practice Midwife | DX: Z71.2 Person consulting for explanation of examination or test findings (principal); N94.6 Dysmenorrhea, unspecified; D28.2 Benign neoplasm of uterine tubes and ligaments | CPT/HCPCS: Q3014 ==

== ENCOUNTER 2023-01-02 11:17 | Outpatient (REF) | payer OTHER, SELFPAY ==
[2023-01-04 22:17] LABS: TS Negative Control Passed; TS Panel A 1; TS Panel B 0; TS Positive Control Passed; TSpotTB Negative (Negative)
== END 2023-01-02 11:18 | disposition home or self-care (01) ==
LOC: HO.LAB 11:17
PROVIDERS: PCP Internal Medicine; Visit Provider Internal Medicine
DX: Z11.1 Encounter for screening for respiratory tuberculosis (principal)
CPT/HCPCS: 36415; 86481

== ENCOUNTER → 2023-02-01 10:30 | Outpatient (BNV) | payer OTHER, SELFPAY | PROVIDERS: PCP Internal Medicine; Visit Provider Radiology Diagnostic Radiology | DX: Z12.31 Encounter for screening mammogram for malignant neoplasm of breast (principal) | CPT/HCPCS: 77063; 77067 ==

== ENCOUNTER 2023-02-01 10:38 | Outpatient (REF) | payer OTHER, SELFPAY | END 2023-02-01 10:39 | disposition home or self-care (01) | LOC: HO.MAMMO 10:38 | PROVIDERS: PCP Internal Medicine; Visit Provider Internal Medicine | DX: Z12.31 Encounter for screening mammogram for malignant neoplasm of breast (principal) | CPT/HCPCS: 77063; 77067 ==

== ENCOUNTER 2023-02-26 15:41 | Outpatient (AMB) | payer OTHER, SELFPAY ==
--- NOTE | 2023-02-26 15:50 | MHC.PC.OV ---
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 Required: No Accompanied by: Self / Same As Patient Allergies neomycin [NEOMYCIN] Allergy (Intermediate, Verified 02/26/23 16:04) FUNGAL INFECTION,bleeding naproxen [NAPROXEN] Allergy (Mild, Verified 02/26/23 16:04) HIVES Medication List - Last Reconciled 02/26/23 by Allyson Rahman MD benztropine 0.5 mg PO BEDTIME 90 days bisacodyl (Dulcolax (bisacodyl)) 5 - 10 mg (1 - 2 x 5 mg) PO BEDTIME PRN 30 days bupropion HCl 300 mg PO QAM cholecalciferol (vitamin D3) 25 mcg PO DAILY 90 days clonazepam 1 mg PO Q8H PRN 30 days dextroamphetamine-amphetamine 15 mg 15 mg PO BID PRN 30 days docusate sodium (DOK) 100 mg PO DAILY ferrous sulfate 325 mg PO DAILY ibuprofen 600 mg PO TID 90 days linaclotide (Linzess) 290 mcg PO QAM 30 days loratadine 10 mg PO DAILY multivitamin with folic acid 400 mcg (Daily-Zoraida (with folic acid)) 1 tab PO DAILY 90 days nicotine (polacrilex) 2 mg buccal Q2H PRN 30 days omeprazole 20 mg PO BID oxcarbazepine 300 mg PO TID 90 days psyllium husk (Fiber (psyllium husk)) 0.52 grams PO BID 60 days rosuvastatin 5 mg PO DAILY 90 days sennosides (Senna Laxative) 17.2 mg (2 x 8.6 mg) PO BEDTIME PRN ddpjbvf-kzey-mhdav-oreg-capryl 100 mg-150 mg- 50 mg-150 mg caps PO vitamin B complex (B Complex-Vitamin B12 tablet) 1 tab PO DAILY ziprasidone HCl 20 mg PO TID Tobacco use date assessed: 08/12/22 Dental Screening Dental Screen Date: 02/26/23 Did you have a dental visit in the last 12 months?: Yes Did you have a dental problem in the last 6 months where you did not have access to dental care?: No Was dental information given to patient?: Patient has dentist HPI HPI Comments History of Present Illness Details This is a 42-year-old female with bipolar disorder that comes for her physical exam. Bipolar disorder stable with medications. Last mammogram was 02/01/2023 and was normal. Last Pap smear was 2021 and was normal with HPV negative. No chest pain or shortness of breath. [facility] Medical History (Updated 02/26/23 @ 16:20 by Allyson Rahman MD) Uterine fibroid Fibroids Right ovarian cyst Mass of uterus determined by ultrasound Transaminitis Dyslipidemia Bipolar 1 disorder Hx of chronic sinusitis ADD (attention deficit disorder) Depression Irritable bowel syndrome with both constipation and diarrhea Anxiety Surgical History History of incision and drainage Family History Father Hypertension CVD (cardiovascular disease) Mother Diabetes Maternal Grandmother Liver problem Maternal Grandfather No problems noted. 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 Sravan Ruffin, Janny Graham, Rene Giang and colleagues, with an educational rancho from [employer] Review of Systems Const All systems reviewed & are unremarkable except as noted in HPI and below Eyes Reports no additional complaints, Denies change in vision and Denies other visual disturbances Card Denies chest pain at rest, Denies chest pain with activity, Denies edema, Denies irregular heart rhythm, Denies claudication, Denies dyspnea, Denies dyspnea on exertion, Denies orthopnea, Denies paroxysmal nocturnal dyspnea and Denies slow heart rate Resp Denies cough, Denies dyspnea and Denies dyspnea on exertion GI Denies abdominal pain, Denies change in bowel habits, Denies excessive flatus, Denies nausea and Denies vomiting Denies urinary incontinence, Denies urinary hesitancy and Denies urinary urgency Musc Denies abnormal gait, Denies atrophy, Denies deformity and Denies limited range of motion Skin/Breast Denies bleeding lesions, Denies changing lesions and Denies rash Neuro Denies abnormal gait and Denies lack of coordination Physical exam (Primary Care) Vital Signs: Last Vital Signs Pulse 82 02/26/23 15:51 BP 126/82 02/26/23 15:51 Pulse Ox 99 02/26/23 15:51 Oxygen Delivery Method Room Air 02/26/23 15:51 BMI result Body Mass Index 30.2 Tobacco/Smoking Status: Tobacco use Status Tobacco use date assessed 08/12/22 02/26/23 15:56 Patient Tobacco Use Status Former Tobacco user 02/26/23 15:56 Tobacco use type Cigarette 02/26/23 15:56 e-Cigarette/Vaping Use Never Used 02/26/23 15:56 Thrive Assessment: Date of Thrive Assessment Date Thrive assessed 08/12/22 02/26/23 15:56 Const Orientation/consciousness: patient oriented x3 [facility] Head: Yes normal to inspection, Yes normocephalic and Yes atraumatic Ears: external ears normal Eyes General: appearance normal, both eyes and all related structures Eyelids: Yes eyelids normal Conjunctivae: conjunctivae normal Neck Neck: Yes normal visual inspection and Yes supple Resp Effort & Inspection: normal respiratory effort Auscultation: clear to auscultation bilaterally Cardio Jugular venous distension: no JVD Rate: regular rate Rhythm: regular rhythm Heart sounds: S1 normal heart sound present and S2 normal heart sound present GI Inspection: Yes normal to inspection Palpation (GI): Soft to palpation and nontender Auscultation: normal bowel sounds Skin General skin exam: no rashes or lesions noted Neuro General: patient oriented x3 and no focal motor deficits Extrem General: Yes full ROM Psych Appearance: grossly normal Office Procedures Flu Questionnaire Does the patient have a severe egg allergy?: No Does the patient have severe life threatening allergies?: No Does the patient have a fever or illness today?: No Has the patient ever had Guillain-Parnell Syndrome?: No Has the patient ever had any past reaction to a flu shot?: No Immunizations flu vacc [id number] 6mos up(PF) 60 mcg(15 mcgx4)/0.5 mL IM syringe Performing Provider: Allyson aRhman MD [facility] Administered by: CARLEY Geronimo on 02/26/23 16:23 Dose Route Admin Location Dispensed Lot Number Expiration Date NDC Manager Process Excellence 0.5 mL IM Left Deltoid 0.5 mL [id number] 10/26/23 55350-051-57 [employer] VIS Given Date VIS Provided VIS Publication Date 02/26/23 Single Vaccine 20 Eligibility Eligibility Date Funding Source Not [facility] Eligible 02/26/23 Private Assessment and Plan Assessment & Plan (1) Physical exam: Code(s): Z00.00 - Encounter for general adult medical examination without abnormal findings Plan: Repeat in a year. (2) Bipolar 1 disorder: Code(s): F31.9 - Bipolar disorder, unspecified Plan: Continue oxcarbamazepine. Orders: Orders Complete Blood Count Auto Diff 02/26/23 D64.9 - Anemia, unspecified IRON PROFILE 02/26/23 D64.9 - Anemia, unspecified Lipid Panel 02/26/23 E78.5 - Hyperlipidemia, unspecified Comprehensive [place]. Panel Fast 02/26/23 K21.9 - Gastro-esophageal reflux disease without esophagitis Influenza [id number] Immunization 02/26/23 Z23 - Encounter for immunization Vitamin D 25-OH Total 02/26/23 E55.9 - Vitamin D deficiency, unspecified Referrals Ophthalmology Referral H53.8 - Other visual disturbances Coding Level of Care Code Est Pt Prev Care 40-64y(17795) Diagnoses Physical exam Z00.00 Bipolar 1 disorder F31.9 Time Spent (min) 31
[2023-02-26 15:51] VITALS: BP 126/82; PULSE 82; O2SAT 99; BMI 30.2
== END 2023-02-26 16:23 | disposition home or self-care (01) ==
PROVIDERS: Visit Provider Internal Medicine
DX: Z23 Encounter for immunization (principal)
CPT/HCPCS: 90471; 90686; 99396

== ENCOUNTER 2023-03-06 12:31 | Outpatient (AMB) | payer OTHER, SELFPAY ==
--- NOTE | 2023-03-06 12:39 | MHC.OFFVIS ---
Intake Vital Signs 03/06/23 12:42 Height 5 ft 4 in Weight 165 lb BMI 28.3 BP 122/62 Blood Pressure Location Lt brachial Position Sitting Pulse 107 H Intake Visit Reasons: follow up Intake Note: Patient follow up for Elevated LFTs and constipation. Patient cc: constipation on na doff , also patient wanted to know the correct med for constipation because pharmacy said she can not be in both/ senna and bisacodyl. Coke Drawer Required: No Accompanied by: Self / Same As Patient Allergies neomycin [NEOMYCIN] Allergy (Intermediate, Verified 03/06/23 12:39) FUNGAL INFECTION,bleeding naproxen [NAPROXEN] Allergy (Mild, Verified 03/06/23 12:39) HIVES Medication List - Last Reconciled 03/06/23 by Krys Bertrand MD benztropine 0.5 mg PO BEDTIME 90 days bisacodyl (Dulcolax (bisacodyl)) 5 - 10 mg (1 - 2 x 5 mg) PO BEDTIME PRN 30 days bupropion HCl 300 mg PO QAM cholecalciferol (vitamin D3) 25 mcg PO DAILY 90 days clonazepam 1 mg PO Q8H PRN 30 days dextroamphetamine-amphetamine 15 mg 15 mg PO BID PRN 30 days docusate sodium (DOK) 100 mg PO DAILY ferrous sulfate 325 mg PO DAILY ibuprofen 600 mg PO TID 90 days linaclotide (Linzess) 290 mcg PO QAM 30 days loratadine 10 mg PO DAILY multivitamin with folic acid 400 mcg (Daily-Zoraida (with folic acid)) 1 tab PO DAILY 90 days nicotine (polacrilex) 2 mg buccal Q2H PRN 30 days omeprazole 20 mg PO BID oxcarbazepine 300 mg PO TID 90 days psyllium husk (Fiber (psyllium husk)) 0.52 grams PO BID 60 days rosuvastatin 5 mg PO DAILY 90 days sennosides (Senna Laxative) 17.2 mg (2 x 8.6 mg) PO BEDTIME PRN uxbhofo-xitp-fntbu-oreg-capryl 100 mg-150 mg- 50 mg-150 mg caps PO vitamin B complex (B Complex-Vitamin B12 tablet) 1 tab PO DAILY ziprasidone HCl 20 mg PO TID HPI follow up HPI Details GI CLINIC VISIT FOR THIS 42 YF (PREVIOUSLY FOLLOWED BY JULIA MAGANA NP) for FU of GERD AND IBS CHRONIC ILLNESSES: chronic fatigue syndrome, anxiety and depression, bipolar disorder, GERD (gastroesophageal reflux disease, IBS (irritable bowel syndrome), 2011 episode of short-term memory loss pain of right hip joint, constipation, unspecified, ADD LABS IN MEDITECH: 11/13 REVIEWED IMAGING STUDIES: 03/16 upper GI with small-bowel follow-through showed: ? IMPRESSION: ? Mild gastroesophageal reflux otherwise unremarkable upper GI exam ? Normal small bowel follow-through time of less than 30 minutes. ? No mucosal abnormality, narrowing or stricture seen involving the small ? bowel loops. The ileocecal junction is normal. Appendix is normal. ENDOSCOPIC STUDIES:? 10/31/20 EGD AND COLONOSCOPY SHOWED: Endoscopy Findings: STOMACH: Gastritis - negative for HP DUODENUM: Normal - biopsied to check for celiac sprue - normal Colonoscopy Findings:? No polyps were detected. Random biopsies were obtained from the right and left colon - normal Moderate diverticulosis seen in the sigmoid colon Plan:? Patient has an appointment on 11/16/20 in the GI Clinic with Krys Bertrand M.D.. Repeat Colonoscopy interval based on path results - in 5 years due to fair to poor prep. TODAY'S VISIT: Patient cc: constipation on and off , also patient wanted to know the correct med for constipation because pharmacy said she can not be in both/ senna and bisacodyl. Takes Linzess in the morning Takes fibre pills every day Takes Senna and bisacodyl at bedtime prn for constipation - advised to take Senna daily at bedtime and use Bisacodyl 3-4 times a month prn. Feels abdomen is swollen after she takes Senna Using Ryze instead of coffee - helps get rid of toxins Started a new job ([employer]) from 7 am to 3 pm and has more stress - diet is not good and abdomen feels bloated Everything she eats makes her bloated or goes through her. Gets constipated when she takes water melon with seeds Trying to excercise Lost her brother at age 39 - had fatty liver, had kidney stones and became septic and . Lost wt after her brother . PAST VISIT: Feeling better - medications are helpful My stomach has been better Taking all the medications Following a bowel program and takes a stool softener, senna, psyllium husk capsule, Linzess and Dulcolax p.r.n. Has a BM daily Has problems if she does not take the Senna Changed her diet and exercising more She would like to switch from Trulance back to Linzess. She feels hungry after she has a BM and thinks she is gaining wt due to Trulance. EGD and colon results reviewed with the patient. Noted spontaneous bruising 2 days after colonoscopy. I have no pain, I poop normal When she takes her medication - she has a 2nd BM in the day. Take dicyclomine at bedtime Lost a few lbs due to taking more fibre in her diet. ? Pain is not so bad ? Continues to have abdominal bloating ? [place] stomach was hurting more after she took dicyclomine. ? Did not like Linzess since she felt she was gaining weight. ? Had trouble loosing weight despite excercising and felt something was wrong with her thyroid. ? Patient denies black stools or rectal bleeding ? Both parents have DM. ? Denies known FH of colon polyps or colon cancer, ? Two paternal cousins have Crohn's disease ? Denies known FH of IBS, Celiac?disease [facility] Medical History Uterine fibroid Fibroids Right ovarian cyst Mass of uterus determined by ultrasound Transaminitis Dyslipidemia Bipolar 1 disorder Hx of chronic sinusitis ADD (attention deficit disorder) Depression Irritable bowel syndrome with both constipation and diarrhea Anxiety Surgical History History of incision and drainage Family History Father Hypertension CVD (cardiovascular disease) Mother Diabetes Maternal Grandmother Liver problem Maternal Grandfather No problems noted. 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 Current occupational exposures/hazards: No Cognitive needs: No Hearing needs: No Vision needs: No Female Reproductive History Menstrual Age of Menarche: 10 Review of Systems Const All systems reviewed & are unremarkable except as noted in HPI and below Physical Exam Vital Signs: Last Vital Signs Pulse 107 H 03/06/23 12:42 BP 122/62 03/06/23 12:42 BMI result Body Mass Index 28.3 Const General: healthy appearing and no acute distress Nutritional Appearance: overweight Orientation/consciousness: patient oriented x3 Limitations: no limitations HEENT Head: Yes normal to inspection Ears: hearing grossly normal bilaterally Eyes Sclerae: sclerae normal Pupils: Equal, round and reactive pupils present Neck Neck: Yes normal visual inspection Chest Chest palpation & inspection: normal inspection of the chest Resp Effort & Inspection: normal respiratory effort Auscultation: clear to auscultation bilaterally Cardio Palpation: normal PMI Rate: regular rate Rhythm: regular rhythm Heart sounds: S1 normal heart sound present, S2 normal heart sound present and no murmurs GI Palpation (GI): Soft to palpation, nontender and No hepatosplenomegaly present Auscultation: normal bowel sounds Rectal Exam - Female: deferred Skin General skin exam: no rashes or lesions noted Neuro General: patient oriented x3, gait normal and moves all extremities Cranial nerves: Yes Equal, round and reactive pupils present Psych Appearance: grossly normal Mental Status: mental status grossly normal Assessment & Plan Assessment & Plan (1) Elevated LFTs: Code(s): R79.89 - Other specified abnormal findings of blood chemistry (2) GERD (gastroesophageal reflux disease): Code(s): K21.9 - Gastro-esophageal reflux disease without esophagitis Qualifiers: Esophagitis presence: esophagitis presence not specified Qualified Code(s): K21.9 - Gastro-esophageal reflux disease without esophagitis (3) Irritable bowel syndrome with both constipation and diarrhea: Code(s): K58.2 - Mixed irritable bowel syndrome Plan 42 YF with chronic fatigue syndrome, anxiety and depression, bipolar disorder, GERD (gastroesophageal reflux disease, IBS (irritable bowel syndrome), 2011 episode of short-term memory loss, pain of right hip joint, constipation, unspecified, ADD seen for a 2nd opinion for evaluation of abdominal pain, GERD, diarrhea alternating with constipation. She complains of heartburn with breakthrough symptoms despite taking omeprazole 20 mg twice daily Notes abdominal pain with intake of certain foods - water melon, other foods with seeds, fried foods and eggs (scrambled eggs are OK . ? of Lactose intolerance and drinks almond milk. Abdominal pain is likely due to diarrhea predominant IBS. Patient was advised to continue taking fiber supplement and dicyclomine 20 mg 3 times daily p.r.n. for abdominal pain. Pt was switched to Linzess 290 mcg daily at her request since she feels she is gaining weight since she started taking Trulance. Following a bowel program and takes a stool softener, senna, psyllium husk capsule, Linzess and Dulcolax p.r.n. 03/06/23 Pt would like to resume a FODMAP diet (was helpful for her symptoms in the past) Pt handout on FODMAP diet given to the patient. FU in 4 months. Coding Level of Care Code Est Pt Level 4 (98598) Diagnoses Elevated LFTs R79.89 Gastroesophageal reflux disease, unspecified whether esophagitis present K21.9 Esophagitis presence: esophagitis presence not specified Irritable bowel syndrome with both constipation and diarrhea K58.2 Time Spent (min) 28
[2023-03-06 12:42] VITALS: BP 122/62; PULSE 107; BMI 28.3
== END 2023-03-06 13:25 | disposition home or self-care (01) ==
PROVIDERS: PCP Internal Medicine; Visit Provider Internal Medicine Gastroenterology
DX: R79.89 Other specified abnormal findings of blood chemistry (principal); K21.9 Gastro-esophageal reflux disease without esophagitis; K58.2 Mixed irritable bowel syndrome
CPT/HCPCS: 99214

== ENCOUNTER → 2023-03-06 12:31 | Outpatient (BNVA) | payer OTHER, SELFPAY | PROVIDERS: PCP Internal Medicine; Visit Provider Internal Medicine Gastroenterology | DX: K21.9 Gastro-esophageal reflux disease without esophagitis (principal); K58.2 Mixed irritable bowel syndrome; R79.89 Other specified abnormal findings of blood chemistry | CPT/HCPCS: 99212 ==

== ENCOUNTER 2023-04-25 14:29 | Outpatient (REF) | payer OTHER, SELFPAY ==
[2023-04-25 18:42] LABS: CT PCR NOT DETECTED (Not Detect.); NG PCR NOT DETECTED (Not Detect.)
[2023-04-26 14:19] LABS: BV Int Neg Control Negative (Negative); BV Int Pos Control Positive (Positive)
== END 2023-04-25 14:30 | disposition home or self-care (01) ==
LOC: HO.LNP 14:29
PROVIDERS: PCP Internal Medicine; Visit Provider Advanced Practice Midwife
DX: N89.8 Other specified noninflammatory disorders of vagina (principal); Z32.02 Encounter for pregnancy test, result negative
CPT/HCPCS: 0353U; 81025; 87480; 87510; 87660; 99212

== ENCOUNTER 2023-07-10 13:34 | Outpatient (AMB) | payer OTHER, SELFPAY ==
--- NOTE | 2023-07-10 13:43 | A.OFFVIS_ITS ---
Intake Vital Signs 07/10/23 13:51 Height 5 ft 4 in Weight 170 lb BMI 29.2 BP 142/88 H Blood Pressure Location Lt brachial Position Sitting Pulse 114 H Intake Visit Reasons: 4 month follow up elevated LFT'S Intake Note: Patient follow up for elevated LFT's. Patient cc: abdominal pain, heartburn, and constipation. 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 Accompanied by: Self / Same As Patient Allergies neomycin [NEOMYCIN] Allergy (Intermediate, Verified 07/10/23 13:41) FUNGAL INFECTION,bleeding naproxen [NAPROXEN] Allergy (Mild, Verified 07/10/23 13:41) HIVES Medication List - Last Reconciled 07/10/23 by Krys Bertrand MD benztropine 0.5 mg PO BEDTIME 90 days bupropion HCl 300 mg PO QAM cholecalciferol (vitamin D3) 25 mcg PO DAILY 90 days clonazepam 1 mg PO Q8H PRN 30 days dextroamphetamine-amphetamine 15 mg 15 mg PO BID PRN 30 days docusate sodium (DOK) 100 mg PO DAILY ferrous sulfate 325 mg PO DAILY ibuprofen 600 mg PO TID 90 days linaclotide (Linzess) 290 mcg PO QAM 30 days loratadine 10 mg PO DAILY metronidazole 500 mg PO BID 7 days multivitamin with folic acid 400 mcg (Daily-Zoraida (with folic acid)) 1 tab PO DAILY 90 days nicotine (polacrilex) 4 mg buccal Q2H 30 days omeprazole 20 mg PO BID oxcarbazepine 300 mg PO TID 90 days PNV,calcium [id number] acid 27 mg iron- 1 mg ( Vitamins Plus Low Iron) 1 tab PO DAILY psyllium husk (Fiber (psyllium husk)) 0.52 grams PO BID 60 days rosuvastatin 5 mg PO DAILY 90 days sennosides (Senna Laxative) 17.2 mg (2 x 8.6 mg) PO BEDTIME PRN gwrvxiwf-avqi-xwfzt-oreg-capry 100 mg-150 mg- 50 mg-150 mg caps PO vitamin B complex (B Complex-Vitamin B12 tablet) 1 tab PO DAILY ziprasidone HCl 20 mg PO TID HPI 4 month follow up elevated LFT'S HPI Details GI CLINIC VISIT FOR THIS 42 YF (PREVIOUSLY FOLLOWED BY JULIA MAGANA NP) for FU of GERD AND IBS CHRONIC ILLNESSES: chronic fatigue syndrome, anxiety and depression, bipolar disorder, GERD (gastroesophageal reflux disease, IBS (irritable bowel syndrome), 2011 episode of short-term memory loss pain of right hip joint, constipation, unspecified, ADD LABS IN MEDITECH: 11/13 REVIEWED IMAGING STUDIES: 03/16 upper GI with small-bowel follow-through showed: ? IMPRESSION: ? Mild gastroesophageal reflux otherwise unremarkable upper GI exam ? Normal small bowel follow-through time of less than 30 minutes. ? No mucosal abnormality, narrowing or stricture seen involving the small ? bowel loops. The ileocecal junction is normal. Appendix is normal. ENDOSCOPIC STUDIES:? 10/31/20 EGD AND COLONOSCOPY SHOWED: Endoscopy Findings: STOMACH: Gastritis - negative for HP DUODENUM: Normal - biopsied to check for celiac sprue - normal Colonoscopy Findings:? No polyps were detected. Random biopsies were obtained from the right and left colon - normal Moderate diverticulosis seen in the sigmoid colon Plan:? Patient has an appointment on 11/16/20 in the GI Clinic with Krys Bertrand M.D.. Repeat Colonoscopy interval based on path results - in 5 years due to fair to poor prep. TODAY'S VISIT: Patient cc: abdominal pain, heartburn, and constipation Patient cc: constipation on and off , also patient wanted to know the correct med for constipation because pharmacy said she can not be in both/ senna and bisacodyl. Two week ago - No BM x 2 days despite taking Linzess Took senna and had bad abdominal cramps Had a Pap smear and was told she had bacterial dysbiosis Takes Linzess 290 mcg every morning and has not been taking the senna Intermittent watery BMs. Tries to have a BM every day. She was taking iron pills daily for ANKUR (related to menstrual blood loss) and stopped taking it after she had Has not been taking iron for the past 2 weeks PAST VISIT: Takes Linzess in the morning Takes fibre pills every day Takes Senna and bisacodyl at bedtime prn for constipation - advised to take Senna daily at bedtime and use Bisacodyl 3-4 times a month prn. Feels abdomen is swollen after she takes Senna Using Ryze instead of coffee - helps get rid of toxins Started a new job ([employer]) from 7 am to 3 pm and has more stress - diet is not good and abdomen feels bloated Everything she eats makes her bloated or goes through her. Gets constipated when she takes water melon with seeds Trying to excercise Lost her brother at age 39 - had fatty liver, had kidney stones and became septic and . Lost wt after her brother . Feeling better - medications are helpful My stomach has been better Taking all the medications Following a bowel program and takes a stool softener, senna, psyllium husk capsule, Linzess and Dulcolax p.r.n. Has a BM daily Has problems if she does not take the Senna Changed her diet and exercising more She would like to switch from Trulance back to Linzess. She feels hungry after she has a BM and thinks she is gaining wt due to Trulance. EGD and colon results reviewed with the patient. Noted spontaneous bruising 2 days after colonoscopy. I have no pain, I poop normal When she takes her medication - she has a 2nd BM in the day. Take dicyclomine at bedtime Lost a few lbs due to taking more fibre in her diet. ? Pain is not so bad ? Continues to have abdominal bloating ? [place] stomach was hurting more after she took dicyclomine. ? Did not like Linzess since she felt she was gaining weight. ? Had trouble loosing weight despite excercising and felt something was wrong with her thyroid. ? Patient denies black stools or rectal bleeding ? Both parents have DM. ? Denies known FH of colon polyps or colon cancer, ? Two paternal cousins have Crohn's disease ? Denies known FH of IBS, Celiac?disease [facility] Medical History Uterine fibroid Fibroids Right ovarian cyst Mass of uterus determined by ultrasound Transaminitis Dyslipidemia Bipolar 1 disorder Hx of chronic sinusitis ADD (attention deficit disorder) Depression Irritable bowel syndrome with both constipation and diarrhea Anxiety Surgical History History of incision and drainage Family History Father Hypertension CVD (cardiovascular disease) Mother Diabetes Maternal Grandmother Liver problem Maternal Grandfather No problems noted. 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 Current occupational exposures/hazards: No Cognitive needs: No Hearing needs: No Vision needs: No Female Reproductive History Menstrual Age of Menarche: 10 Review of Systems Const All systems reviewed & are unremarkable except as noted in HPI and below Physical Exam Vital Signs: Last Vital Signs Pulse 114 H 07/10/23 13:51 BP 142/88 H 07/10/23 13:51 BMI result Body Mass Index 29.2 Const General: healthy appearing and no acute distress Nutritional Appearance: overweight Orientation/consciousness: patient oriented x3 Limitations: no limitations HEENT Head: Yes normal to inspection Ears: hearing grossly normal bilaterally Eyes Sclerae: sclerae normal Pupils: Equal, round and reactive pupils present Neck Neck: Yes normal visual inspection Chest Chest palpation & inspection: normal inspection of the chest Resp Effort & Inspection: normal respiratory effort Auscultation: clear to auscultation bilaterally Cardio Palpation: normal PMI Rate: regular rate Rhythm: regular rhythm Heart sounds: S1 normal heart sound present, S2 normal heart sound present and no murmurs GI Palpation (GI): Soft to palpation, nontender and No hepatosplenomegaly present Auscultation: normal bowel sounds Rectal Exam - Female: deferred Skin General skin exam: no rashes or lesions noted Neuro General: patient oriented x3, gait normal and moves all extremities Cranial nerves: Yes Equal, round and reactive pupils present Psych Appearance: grossly normal Mental Status: mental status grossly normal Assessment & Plan Assessment & Plan (1) Elevated LFTs: Code(s): R79.89 - Other specified abnormal findings of blood chemistry (2) GERD (gastroesophageal reflux disease): Code(s): K21.9 - Gastro-esophageal reflux disease without esophagitis Qualifiers: Esophagitis presence: esophagitis presence not specified Qualified Code(s): K21.9 - Gastro-esophageal reflux disease without esophagitis (3) Irritable bowel syndrome with both constipation and diarrhea: Code(s): K58.2 - Mixed irritable bowel syndrome (4) Abdominal bloating: Code(s): R14.0 - Abdominal distension (gaseous) (5) Iron deficiency anemia: Code(s): D50.9 - Iron deficiency anemia, unspecified Plan 42 YF with chronic fatigue syndrome, anxiety and depression, bipolar disorder, GERD (gastroesophageal reflux disease, IBS (irritable bowel syndrome), 2010 episode of short-term memory loss, pain of right hip joint, constipation, unspecified, ADD seen for a 2nd opinion for evaluation of abdominal pain, GERD, diarrhea alternating with constipation. She complains of heartburn with breakthrough symptoms despite taking omeprazole 20 mg twice daily Notes abdominal pain with intake of certain foods - water melon, other foods with seeds, fried foods and eggs (scrambled eggs are OK) . ? of Lactose intolerance and drinks almond milk. Abdominal pain is likely due to diarrhea predominant IBS. Patient was advised to continue taking fiber supplement and dicyclomine 20 mg 3 times daily p.r.n. for abdominal pain. Pt was switched to Linzess 290 mcg daily at her request since she feels she is gaining weight since she started taking Trulance. Following a bowel program and takes a stool softener, senna, psyllium husk capsule, Linzess and Dulcolax p.r.n. 03/06/23 Pt would like to resume a FODMAP diet (was helpful for her symptoms in the past) Pt handout on FODMAP diet given to the patient. 07/10/23 Two week ago - No BM x 2 days despite taking Linzess Took senna and had bad abdominal cramps Had a Pap smear and was told she had bacterial dysbiosis Takes Linzess 290 mcg every morning and has not been taking the senna Intermittent watery BMs. Tries to have a BM every day. She was taking iron pills daily for ANKUR (related to menstrual blood loss) and stopped taking it after she had Has not been taking iron for the past 2 weeks Pt was advised to have CBC checked for FU of ANKUR Patient advised to take Linzess daily. In addition to take Dulcolax 2 tablets once a month to prevent obstipation/fecal impaction. Elevated LFTs likely due to fatty liver. LFTs have decreased after wt loss of 10 lbs. Schedule abdominal US for FU of elevated LFTs Patient was advised to schedule a colonoscopy (screening and chronic constipation) Poor prep on previous colonoscopy in 2020. She was advised to take Dulcolax 2 tablets daily starting 5 days prior to colonoscopy appointment. FU in 6 month Orders: Orders Complete Blood Count no Diff Today D50.9 - Iron deficiency anemia, unspecified Vitamin B12 and Folate Today D50.9 - Iron deficiency anemia, unspecified US abdomen complete Today R79.89 - Other specified abnormal findings of blood chemistry Ferritin Today D50.9 - Iron deficiency anemia, unspecified Medications: New bisacodyl (Dulcolax (bisacodyl)) Take 2 tablets at 12 pm starting 5 days before colonoscopy appointment 10 mg (2 x 5 mg) PO ONCE 5 days 10 tabs 0RF Lactobacillus rhamnosus GG (Culturelle) 1 cap PO DAILY 90 days 90 caps 1RF R14.0 - Abdominal distension (gaseous) polyethylene glycol 3350 (Miralax) Mix Miralax with 64 oz(8 cups) of Crystal light. Take 2 tablets of Dulcolax qt 12 pm. Wait to have your 1st bowel movement, then begin drinking Miralax. Drink a glass of Miralax every 10-15 minutes until you are finished. You will drink at least another 4 cups of clear liquid of your choice over the next 2 hours. Please drink as many clear liquids as possible You may have clear liquids up to four hours before your procedure 17 grams PO DAILY 1 day 238 grams 0RF Coding Level of Care Code Est Pt Level 4 (58882) Diagnoses Elevated LFTs R79.89 Gastroesophageal reflux disease, unspecified whether esophagitis present K21.9 Esophagitis presence: esophagitis presence not specified Irritable bowel syndrome with both constipation and diarrhea K58.2 Abdominal bloating R14.0 Iron deficiency anemia D50.9 Time Spent (min) 25
[2023-07-10 13:51] VITALS: BP 142/88; PULSE 114; BMI 29.2
== END 2023-07-10 14:23 | disposition home or self-care (01) ==
PROVIDERS: PCP Internal Medicine; Visit Provider Internal Medicine Gastroenterology
DX: R79.89 Other specified abnormal findings of blood chemistry (principal); K21.9 Gastro-esophageal reflux disease without esophagitis; K58.2 Mixed irritable bowel syndrome; R14.0 Abdominal distension (gaseous); D50.9 Iron deficiency anemia, unspecified
CPT/HCPCS: 99214

== ENCOUNTER → 2023-07-10 13:34 | Outpatient (BNVA) | payer OTHER, SELFPAY | PROVIDERS: PCP Internal Medicine; Visit Provider Internal Medicine Gastroenterology | DX: R79.89 Other specified abnormal findings of blood chemistry (principal); R14.0 Abdominal distension (gaseous); K21.9 Gastro-esophageal reflux disease without esophagitis; K58.2 Mixed irritable bowel syndrome; D50.9 Iron deficiency anemia, unspecified; Z79.899 Other long term (current) drug therapy | CPT/HCPCS: 99212 ==

== ENCOUNTER 2023-07-30 09:37 | Outpatient (REF) | payer OTHER, SELFPAY ==
--- NOTE | ~2023-07-30 | US_ITS ---
EXAMINATION: US ABDOMEN COMPLETE CLINICAL INFORMATION: Other specified abnormal findings of blood chemistry. COMPARISON: None available. TECHNIQUE: Real-time imaging of the abdominal viscera. FINDINGS: PANCREAS: Largely obscured by overlapping bowel gas. ABDOMINAL AORTA: The proximal, mid, and distal segments are normal in caliber. INFERIOR VENA CAVA: Visualized portions are normal. LIVER: There is mild hepatomegaly, with a longitudinal span of 17.9 cm. The liver contour is normal. There is diffuse increased liver parenchymal echogenicity. Within the right hepatic lobe, a 2.2 cm benign, simple cyst is seen, for which no imaging follow-up is recommended. There is no intrahepatic biliary duct dilatation seen. GALLBLADDER: Normal. The gallbladder is physiologically distended without evidence of stones, sludge, polyps, wall thickening or pericholecystic fluid. COMMON BILE DUCT: Normal in caliber measuring 0.4 cm in diameter. RIGHT KIDNEY: No hydronephrosis. No renal calculi or focal parenchymal lesions. The kidney measures 12.8 cm in maximum dimension. There is a hypertrophic column of Pavel. LEFT KIDNEY: No hydronephrosis. No renal calculi or focal parenchymal lesions. The kidney measures 11.3 cm in maximum dimension. There is hypertrophic column of Pavel. SPLEEN: Normal. The spleen measures 10.3 cm in maximum dimension. FREE FLUID: None. US/US abdomen complete IMPRESSION: 1. There is mild hepatomegaly. 2. There is generalized increase in hepatic echotexture, consistent with fatty infiltration or hepatocellular disease. Please correlate clinically. No focal hepatic mass or intrahepatic biliary dilatation is seen. 3. Technically limited ultrasound examination of the pancreas
== END 2023-07-30 09:38 | disposition home or self-care (01) ==
LOC: HO.US 09:37
PROVIDERS: PCP Internal Medicine; Visit Provider Internal Medicine Gastroenterology
DX: R79.89 Other specified abnormal findings of blood chemistry (principal)
CPT/HCPCS: 76700

== ENCOUNTER 2023-08-01 13:35 | Outpatient (AMB) | payer OTHER, SELFPAY ==
--- NOTE | 2023-08-01 13:37 | A.OFFVIS_ITS ---
Intake Vital Signs 08/01/23 13:53 Height 5 ft 4 in Weight 169 lb 12.095 oz BMI 29.1 Intake Visit Reasons: Annual Intake Note: no concerns Inspector Tubes Required: No Information Interpreted: non-clinical & clinical Community Facilitator: Community Facilitator Present (Stacy HOWE) Accompanied by: Self / Same As Patient Allergies neomycin [NEOMYCIN] Allergy (Intermediate, Verified 08/01/23 13:55) FUNGAL INFECTION,bleeding naproxen [NAPROXEN] Allergy (Mild, Verified 08/01/23 13:55) HIVES Is last menstrual period known: Yes Last menstrual period: 07/28/23 HPI HPI Comments History of Present Illness Details She is a premenopausal woman presenting for annual examination. Doing well with no concerns. She reports her IBS has improved with probiotics. She tries to eat healthy and stays active with exercise. Regular monthly menses. Uses condoms with her , does not want any control at this time. Currently is sexually active. She denies vaginal itching and irritation. STI screening offered; she declines. Family history of breast and colon cancer. Last pap smear 2021, negative. Mammogram: UTD. [facility] Medical History (Updated 08/01/23 @ 14:37 by Marta Rosa CNM) Transaminitis Dyslipidemia Bipolar 1 disorder Hx of chronic sinusitis ADD (attention deficit disorder) Depression Irritable bowel syndrome with both constipation and diarrhea Anxiety Surgical History History of incision and drainage Family History Father Hypertension CVD (cardiovascular disease) Mother Diabetes Maternal Grandmother Liver problem Maternal Grandfather No problems noted. 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 Current occupational exposures/hazards: No Cognitive needs: No Hearing needs: No Vision needs: No Female Reproductive History Menstrual Age of Menarche: 10 Date of last menstrual period: 07/28/23 Total pregnancies: 2 Full term: 2 Number of Living Children: 2 Date of last pap smear: 06/25/21 Date of Mammogram: 02/01/23 Review of Systems Const All systems reviewed & are unremarkable except as noted in HPI and below Reports as per HPI Eyes Reports no additional complaints ENT Reports no additional complaints Card Reports no additional complaints Resp Reports no additional complaints GI Reports as per HPI and Reports no additional complaints Reports as per HPI Musc Reports no additional complaints Skin/Breast Reports as per HPI Neuro Reports no additional complaints Psych Reports no additional complaints Endo Reports no additional complaints Kayden/Lymph Reports no additional complaints Aller/Immun Reports no additional complaints Physical Exam Vital Signs: BMI result Body Mass Index 29.1 Const General: cooperative, healthy appearing, no acute distress, well developed and alert Orientation/consciousness: patient oriented x3 HEENT Head: Yes normal to inspection Eyes General: appearance normal, both eyes and all related structures Neck Neck: Yes normal visual inspection Thyroid: Thyroid normal Chest Chest palpation & inspection: normal inspection of the chest and other (no puckering, dimpling, peau de orange, retraction, discharge, masses) Breast/axilla inspection: normal inspection of the breasts Breast/axilla palpation: normal palpation of the breasts Resp Effort & Inspection: normal respiratory effort GI Inspection: Yes normal to inspection Palpation (GI): Soft to palpation Rectal Exam - Female: deferred General: Yes bladder normal to palpation External Female Exam: normal external appearance and normal appearance of the urethra Speculum Exam - Vagina: normal appearance of the vagina, normal palpation and normal vaginal discharge Speculum Exam - Cervix: normal appearance of the cervix and normal palpation Bimanual exam- vagina & uterus: normal bimanual exam, normal palpation, uterine size normal, bladder normal to palpation, normal palpation and non-tender Bimanual Exam- Adnexa, other: no masses Skin General skin exam: no rashes or lesions noted Rashes: no rashes Neuro General: patient oriented x3 Cognition (Neuro): normal cognition Extrem General: Yes normal to inspection Psych Attitude: cooperative Thought process: Normal thought process present Assessment & Plan Assessment & Plan (1) Encounter for well woman exam with routine gynecological exam: Code(s): Z01.419 - Encounter for gynecological examination (general) (routine) without abnormal findings (2) Encounter for annual routine gynecological examination: Code(s): Z01.419 - Encounter for gynecological examination (general) (routine) without abnormal findings Plan Discussed: Current recommendations for pap smears per ASCCP guidelines. Breast awareness and periodic breast exams. Maintain a healthy lifestyle including a well balanced diet and routine exercise. Mammogram yearly. Patient verbalizes understanding and agrees to the plan of care. She was given opportunity to ask questions and all questions were answered to the best of my ability. 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 This note is constructed using voice recognition software. While every effort has been made to ensure accuracy, garnett mechanic errors may have been included. Coding Level of Care Code Est Pt Prev Care 40-64y(02173) Diagnoses Encounter for well woman exam with routine gynecological exam Z01.419 Encounter for annual routine gynecological examination Z01.419
[2023-08-01 13:53] VITALS: BMI 29.1
== END 2023-08-01 14:37 | disposition home or self-care (01) ==
PROVIDERS: Visit Provider Advanced Practice Midwife
DX: Z01.419 Encounter for gynecological examination (general) (routine) without abnormal findings (principal)
CPT/HCPCS: 99396

== ENCOUNTER → 2023-08-01 13:35 | Outpatient (BNVA) | payer OTHER, SELFPAY | PROVIDERS: Visit Provider Advanced Practice Midwife ==

== ENCOUNTER 2023-09-25 13:37 | Outpatient (AMB) | payer OTHER, SELFPAY ==
--- NOTE | 2023-09-25 13:39 | A.OFFPC_ITS ---
Vital Signs 09/25/23 13:40 Height 5 ft 4 in Weight 176 lb BMI 30.2 BP 140/100 H Blood Pressure Location Lt brachial Position Sitting Intake Visit Reasons: gerd Intake Note: Patient here for a follow up GERD County Coroner Required: No Accompanied by: Self / Same As Patient Allergies neomycin [NEOMYCIN] Allergy (Intermediate, Verified 09/25/23 13:53) FUNGAL INFECTION,bleeding naproxen [NAPROXEN] Allergy (Mild, Verified 09/25/23 13:53) HIVES Medication List - Last Reconciled 09/25/23 by Allyson Rahmna MD benztropine 0.5 mg PO BEDTIME 90 days bisacodyl (Dulcolax (bisacodyl)) 10 mg (2 x 5 mg) PO ONCE 5 days bupropion HCl XL 300 mg PO QAM cholecalciferol (vitamin D3) 25 mcg PO DAILY 90 days clonazepam 1 mg PO Q8H PRN 30 days dextroamphetamine-amphetamine 15 mg 15 mg PO BID PRN 30 days docusate sodium 100 mg PO DAILY ibuprofen 600 mg PO TID 90 days Lactobacillus rhamnosus GG (Culturelle) 1 cap PO DAILY 90 days linaclotide (Linzess) 290 mcg PO QAM loratadine 10 mg PO DAILY multivitamin with folic acid 400 mcg (Daily-Zoraida (with folic acid)) 1 tab PO DAILY 90 days nicotine (polacrilex) 4 mg buccal Q2H 30 days omeprazole 20 mg PO BID oxcarbazepine 300 mg PO TID 90 days PNV,calcium 28-ffoa-hxwch acid 27 mg iron- 1 mg ( Vitamins Plus Low Iron) 1 tab PO DAILY polyethylene glycol 3350 (Miralax) 17 grams PO DAILY 1 day psyllium husk (Fiber (psyllium husk)) 0.52 grams PO BID 60 days rosuvastatin 5 mg PO DAILY 90 days sennosides (Senna Laxative) 17.2 mg (2 x 8.6 mg) PO BEDTIME PRN tvoqgdcu-ebym-onduj-oreg-capry 100 mg-150 mg- 50 mg-150 mg caps PO vitamin B complex (B Complex-Vitamin B12 tablet) 1 tab PO DAILY ziprasidone HCl 20 mg PO TID Tobacco use date assessed: 09/25/23 Dental Screening Dental Screen Date: 09/25/23 Did you have a dental visit in the last 12 months?: Yes Did you have a dental problem in the last 6 months where you did not have access to dental care?: No Was dental information given to patient?: Patient has dentist HPI HPI Comments History of Present Illness Details This is a 43-year-old female with bipolar disorder, GERD, dyslipidemia and anxiety that comes today for follow-up on her conditions. Bipolar disorder and anxiety are stable with medications. On statins for her cholesterol and lipid panel will be repeated. GERD stable with PPIs. Denies any chest pain or shortness of breath. Compliant with medications. [facility] Medical History Transaminitis Dyslipidemia Bipolar 1 disorder Hx of chronic sinusitis ADD (attention deficit disorder) Depression Irritable bowel syndrome with both constipation and diarrhea Anxiety Surgical History History of incision and drainage Family History Father Hypertension CVD (cardiovascular disease) Mother Diabetes Maternal Grandmother Liver problem Maternal Grandfather No problems noted. Paternal Grandfather Cancer Family/Other FH: mental illness Paternal Aunt Breast cancer Family/Other Colon cancer Brother Liver disease Social History (Updated 09/25/23 @ 14:01 by Allyson Rahman MD) Household Members: Spouse and Children Housing: House Alcohol intake: former Patient Tobacco Use Status: Former Tobacco user Tobacco use type: Cigarette Cigarettes Per Day: 3 e-Cigarette/Vaping Use: Never Used Second Hand Smoke Exposure: No service: No Current occupational status: employed Current occupational exposures/hazards: No Cognitive needs: No Hearing needs: No Vision needs: No Female Reproductive History Menstrual Age of Menarche: 10 Questionnaire PHQ-9 Over the last 2 weeks, how often have you been bothered by any of the following problems? 1. Little interest or pleasure in doing things: not at all 2. Feeling down, depressed, or hopeless: not at all 3. Trouble falling or staying asleep, or sleeping too much: not at all 4. Feeling tired or having little energy: not at all 5. Poor appetite or overeating: not at all 6. Feeling bad about yourself - or that you are a failure or have let yourself or your family down: not at all 7. Trouble concentrating on things, such as reading the newspaper or watching television: not at all 8. Moving or speaking so slowly that other people could have noticed. Or the opposite - being so fidgety or restless that you have been moving around a lot more than usual: not at all 9. Thoughts that you would be better off or of hurting yourself in some way: not at all Total score: 0 Depression Screening Interpretation: Negative Depression Screening Done: Yes 59316 - PHQ-9 Billing: Yes Source: Developed by Drs. Sravan Ruffin, Janny Graham, Rene Giang and colleagues, with an educational rancho from [employer]. Thrive Questionnaire Date Thrive assessed: 09/25/23 I am a: Patient What is your living situation today?: I have a steady place to live Within the past 12 months, did the food you bought not last and you didn't have the money to get more?: Never true Within the past 12 months, did you worry whether your food would run out before you got money to buy more?: Never true Do you have trouble paying for medicines?: No Do you have trouble getting transportation to medical appointments?: No Do you have trouble paying your heating and electricity bill?: No Do you have trouble taking care of your child, family member or friend?: No Do you have trouble with day-to-day activities such as bathing, preparing meals, shopping, managing finances, etc.?: No Are you currently unemployed and looking for a job?: No Are you interested in more education?: No Please select the resources that you would like help with: None Currently or been in a relationship where the following occur: no concerns reported THRIVE Score: 0 AUDIT C Alcohol Use Questionnaire (AUDIT-C) 1. How often do you have a drink containing alcohol?: Never Total Score: 0 Score Reviewed/Action Taken: No OKSANA-7 AMB Questionnaire OKSANA-7 Date OKSANA - 7 assessed: 09/25/23 Feeling nervous, anxious, or on edge: 3 = Nearly every day Not being able to stop or control worryin = Not at all Worrying too much about different things: 0 = Not at all Trouble relaxin = Nearly every day Being so restless that it is hard to sit still: 0 = Not at all Becoming easily annoyed or irritable: 1 = Several days Feeling afraid as if something awful might happen: 0 = Not at all Total OKSANA-7 score (0-4 normal; 5-9 mild; 10-14 moderate; 15-21 severe): 7 Source: Developed by Drs. Sravan Ruffin, Janny Graham, Rene Giang and colleagues, with an educational rancho from [employer]. OKSANA-7 Assessment Billing OKSANA-7 Assessment Tool: OKSANA-7 Assessment 01438 Review of Systems Const All systems reviewed & are unremarkable except as noted in HPI and below Card Denies chest pain at rest, Denies chest pain with activity, Denies edema, Denies irregular heart rhythm, Denies claudication, Denies dyspnea, Denies dyspnea on exertion, Denies orthopnea, Denies paroxysmal nocturnal dyspnea and Denies slow heart rate Resp Denies cough, Denies dyspnea and Denies dyspnea on exertion Physical exam (Primary Care) Vital Signs: Last Vital Signs BP 140/100 H 09/25/23 13:40 BMI result Body Mass Index 30.2 Tobacco/Smoking Status: Tobacco use Status Tobacco use date assessed 09/25/23 09/25/23 13:46 Patient Tobacco Use Status Former Tobacco user 09/25/23 14:01 Tobacco use type Cigarette 09/25/23 14:01 e-Cigarette/Vaping Use Never Used 09/25/23 14:01 PHQ-9: PHQ-9 Score PHQ-9: Total score 0 09/25/23 14:08 Depression Screening Interpretation: Negative Thrive Assessment: Date of Thrive Assessment Date Thrive assessed 09/25/23 09/25/23 13:46 Currently or been in a relationship where the following occur: no concerns reported Resp Effort & Inspection: normal respiratory effort Auscultation: clear to auscultation bilaterally Cardio Jugular venous distension: no JVD Rate: regular rate Rhythm: regular rhythm Heart sounds: S1 normal heart sound present and S2 normal heart sound present GI Inspection: Yes normal to inspection Palpation (GI): Soft to palpation and nontender Auscultation: normal bowel sounds Extrem General: Yes full ROM Assessment and Plan Assessment & Plan (1) GERD (gastroesophageal reflux disease): Code(s): K21.9 - Gastro-esophageal reflux disease without esophagitis Qualifiers: Esophagitis presence: esophagitis presence not specified Qualified Code(s): K21.9 - Gastro-esophageal reflux disease without esophagitis Plan: Continue PPIs. (2) Bipolar 1 disorder: Code(s): F31.9 - Bipolar disorder, unspecified Plan: Continue ox carbamazepine. (3) Dyslipidemia: Code(s): E78.5 - Hyperlipidemia, unspecified Plan: Continue statins. Repeat lipid panel. Advised to follow a low-cholesterol diet. (4) Anxiety: Comment: very anxious, Hx short term memory loss 2010 Code(s): F41.9 - Anxiety disorder, unspecified Plan: Continue benzodiazepines as needed. Orders: Orders Lipid Panel Today E78.5 - Hyperlipidemia, unspecified Vitamin D 25-OH Total Today E55.9 - Vitamin D deficiency, unspecified Complete Blood Count Auto Diff Today D50.9 - Iron deficiency anemia, unspecified, D64.9 - Anemia, unspecified IRON PROFILE Today D50.9 - Iron deficiency anemia, unspecified, D64.9 - Anemia, unspecified Comprehensive [place]. Panel Fast Today R14.0 - Abdominal distension (gaseous) Medications: New semaglutide (weight loss) (Yaw) administer weeks 1 through 4 of therapy 0.25 mg (0.5 mL) subcut QWEEK 2 mL 0RF 4 weeks Coding Level of Care Code Est Pt Level 4 (07271) Complex EM visit Add On G2211 Diagnoses Gastroesophageal reflux disease, unspecified whether esophagitis present K21.9 Esophagitis presence: esophagitis presence not specified Bipolar 1 disorder F31.9 Dyslipidemia E78.5 Anxiety F41.9 Additional Codes OKSANA-7 Assessment Billing - OKSANA-7 Assessment Tool: OKSANA-7 Assessment 74387 ([id number]) Time Spent (min) 23
[2023-09-25 13:40] VITALS: BP 140/100; BMI 30.2
== END 2023-09-25 14:09 | disposition home or self-care (01) ==
PROVIDERS: PCP Internal Medicine; Visit Provider Internal Medicine
DX: K21.9 Gastro-esophageal reflux disease without esophagitis (principal); F31.9 Bipolar disorder, unspecified; E78.5 Hyperlipidemia, unspecified; F41.9 Anxiety disorder, unspecified
CPT/HCPCS: 99214; G2211

== ENCOUNTER 2023-12-15 10:28 | Day surgery (SDC) | payer OTHER, SELFPAY ==
[2023-12-15 11:06] VITALS: BMI 28.3
[2023-12-15 11:32] LABS: UPreg QC Valid YES; Urine Pregnancy NEGATIVE (NEGATIVE)
[2023-12-15 11:33] VITALS: BP 110/75; PULSE 96; RESP 16; TEMP 36.4; O2SAT 96
[2023-12-15] MEDS: Lactated Ringers 1,000 ML 80 ML IVCONT (11:36)
--- NOTE | 2023-12-15 12:34 | MHC.SHP ---
Pre-Procedural Eval Section A - 24 Hr Update-Section A only Date of Service: 12/15/23 The patient is an INPATIENT: No The patient has been examined within 24 hours of the surgical procedure. The History & Physical has been completed within 30 days and I have reviewed it.: No Section B - Complete if H&P > 30 days Chief Complaint: screening, chronic constipation Details of Present Illness: GERD, abdominal pain, post prandial diarrhea Relevant Family History (Specify if Yes): Yes Relevant Social History: Tobacco Use (former smoker) Present Medications: see Short Stay Collaborative assessment Medical History: Significant History (ADD (attention deficit disorder) Anxiety Depression Irritable bowel syndrome with both constipation and diarrhea) History of Previous Operations: Relevant previous surgery/procedure and date(s) (History of incision and drainage) Allergies: Allergies Allergy/AdvReac Type Severity Reaction Status Date / Time neomycin [NEOMYCIN] Allergy Intermediate FUNGAL Verified 12/15/23 11:35 INFECTION,bleeding naproxen [NAPROXEN] Allergy Mild HIVES Verified 12/15/23 11:35 Review of Systems Sugical H&P ROS: Negative: Constitution, Cardiovascular and Respiratory and Yes, Specify: Gastrointestinal (abdominal pain, post prandial diarrhea) Exam Surgical H&P Exam: Normal: Heart, Normal: Lungs, Normal: Extremities and Normal: Abdomen Plan Diagnosis/Plan: Unchanged I have reviewed the history and physical and performed a pertinent physical examination on my patient. No changes have occurred unless specified. Time Spent With Patient Time: Total time managing care of this patient today ____ minutes.
--- NOTE | 2023-12-15 12:40 | HO.ANESPROP2 ---
[facility] Active Problems Active Problems: All Active Problems Iron deficiency anemia (Acute) Abdominal bloating (Acute) Blurry vision (Acute) Uterine fibroid (Acute) Fibroids (Acute) Right ovarian cyst (Acute) Physical exam (Acute) Adenomyoma of uterus (Acute) Mass of uterus determined by ultrasound (Acute) Encounter for screening mammogram for malignant neoplasm of breast (Acute) Encounter for annual routine gynecological examination (Acute) Transaminitis (Acute) Dyslipidemia (Acute) Bipolar 1 disorder (Acute) Elevated LFTs (Acute) Acute sinusitis (Acute) Overweight (BMI 25.0-29.9) (Acute) Chronic fatigue syndrome (Acute) GERD (gastroesophageal reflux disease) (Acute) Irritable bowel syndrome with both constipation and diarrhea (Acute) Anxiety (Acute) Past Medical History Medical History Transaminitis Dyslipidemia Bipolar 1 disorder Hx of chronic sinusitis ADD (attention deficit disorder) Depression Irritable bowel syndrome with both constipation and diarrhea Anxiety Family History Family History Father Hypertension CVD (cardiovascular disease) Mother Diabetes Maternal Grandmother Liver problem Maternal Grandfather No problems noted. Paternal Grandfather Cancer Family/Other FH: mental illness Paternal Aunt Breast cancer Family/Other Colon cancer Brother Liver disease Family history of problems with anesthesia: No Surgical History Surgical History History of incision and drainage History of Problems with Anesthesia: No Social History Social History (Updated 09/25/23 @ 14:01 by Allyson Rahman MD) Household Members: Spouse and Children Housing: House Alcohol intake: former Patient Tobacco Use Status: Current everyday Tobacco user Tobacco use type: Cigarette Cigarettes Per Day: 3 e-Cigarette/Vaping Use: Never Used Second Hand Smoke Exposure: No Use of substances other than those prescribed or required for medical reasons: No Are you DNR?: No Advance Directives: No Advance Directives Information Provided: Yes service: No Current occupational status: employed Current occupational exposures/hazards: No Cognitive needs: No Hearing needs: No Vision needs: No Meds Allergies Allergy/AdvReac Type Severity Reaction Status Date / Time neomycin [NEOMYCIN] Allergy Intermediate FUNGAL Verified 12/15/23 11:35 INFECTION,bleeding naproxen [NAPROXEN] Allergy Mild HIVES Verified 12/15/23 11:35 Active Medications: Current Medications Lactated Ringer's (Lr) 1,000 mls @ 80 mls/hr IVCONT .[id number] FLOR Last Admin: 12/15/23 11:36 Dose: 80 mls/hr Home Medications ?Medication ?Instructions ?Recorded ?Confirmed ?Last Taken ?Type vitamin B complex (B 1 tab PO DAILY 10/02/22 09/25/23 Unknown History Complex-Vitamin B12 tablet) Exam Height,Weight and Vital Signs: Height 5 ft 4 in Weight 74.843 kg Last Vital Signs Temp 97.5 F 12/15/23 11:33 Pulse 96 12/15/23 11:33 Resp 16 12/15/23 11:33 BP 110/75 12/15/23 11:33 Pulse Ox 96 12/15/23 11:33 O2 Del Method Room Air 12/15/23 11:33 Pertinent Lab Results Pertinent Lab Results: Laboratory Tests 12/15/23 11:15 Urine Test NEGATIVE Airway Mallampati Class: II TM Dist: >3cm Neck ROM: Full Heart: rrr Lungs: cta Assessment and Plan Assessment Anesthesia Assessment: Anesthesia Plan Discussed and Chart Reviewed Final Anesthetic Review Family History of Problems with Anesthesia: No History of Problems with Anesthesia: No NPO: Yes ASA Class: III Final Preanesthetic Review: No Changes in Pt Med Stat, Meds/Allgs Chart Reviewed and Consent Obtained/Reviewed Patient Risk: Low Procedure Risk: Low Anesthetic Plan Anesthetic Plan: MAC: Disposition: Standard PACU
[2023-12-15 14:06] VITALS: BP 98/62; PULSE 85; RESP 16; TEMP 36.3; O2SAT 98
--- NOTE | 2023-12-15 14:07 | HO.OPN-COLON ---
Colonoscopy Operative Note Operative Note Date of Service: 12/15/23 Narrative: COLONOSCOPY TILL CECUM Pre-op diagnosis: Colon cancer screening, chronic constipation. Post-op diagnosis:? Diverticulosis, hemorrhoids Endoscopist:? Krys Bertrand MD Anesthesia:?MAC Consent: Indications for the procedure and potential complications of bleeding, perforation, reaction to medications and missed diagnosis were discussed with the patient and informed consent was obtained. Instrument: Olympus PCF H 190 L variable stiffness pediatric colonoscope Monitoring: Vital signs and clinical assessment, intermittent blood pressure monitoring, continuous EKG monitoring, Pulse oximetry and Carbon Dioxide monitoring were done throughout the procedure. Please see anesthesia flowsheet. Colon withdrawl time was 16 minutes. Procedure: The patient was placed in the left lateral decubitis position and pre-procedure medications were administered. After a digital rectal examination of the ano-rectum, the video colonoscope was inserted into the rectum and advanced through the colon to the cecum. The colonoscope was slowly withdrawn in a retrograde panoramic fashion and the colon mucosa was carefully examined including a retroflexed view of the rectum. Findings and interventions are described below. Procedure Difficulty: without difficulty - colon was long and tortuous and there was some loop formation Findings: Terminal Ileum: Not evaluated Cecum: Normal Ascending Colon: Normal Transverse Colon: Normal Descending Colon: Normal Sigmoid Colon: Moderate diverticulosis Rectum: Normal Ano-rectum: Small internal hemorrhoids Colon preparation: Good after copious irrigation. Sparks Bowel Preparation Scale Right colon; 2 Transverse colon: 2 Left colon; 2 (0 = Unprepared colon segment with mucosa not seen due to solid stool that cannot be cleared. 1 = Portion of mucosa of the colon segment seen, but other areas of the colon segment not well seen due to staining, residual stool and/or opaque liquid. 2 = Minor amount of residual staining, small fragments of stool and/or opaque liquid, but mucosa of colon segment seen well. 3 = Entire mucosa of colon segment seen well with no residual staining, small fragments of stool or opaque liquid) Impression and Post Procedure Diagnosis: Colonoscopy Findings: No polyps were detected Moderate diverticulosis seen in the sigmoid colon small hemorrhoids on retroflexed exam. Plan: Pt has a FU appointment on 01/08/[address] Bertrand Repeat Colonoscopy in 5 years due to family hx of colon cancer Above findings were reviewed with the patient and relevant handouts were given and the discharge area.
[2023-12-15 14:21] VITALS: BP 104/84; PULSE 89; RESP 16; TEMP 36.3; O2SAT 99
== END 2023-12-15 15:19 | disposition home or self-care (01) ==
PROVIDERS: PCP Internal Medicine; Visit Provider Internal Medicine Gastroenterology
PROC: 0DJD8ZZ Inspection of Lower Intestinal Tract, Via Natural or Artificial Opening Endoscopic (ICD-10-PCS; CPT 45378; principal; 2023-12-15 12:10)
DX: Z12.11 Encounter for screening for malignant neoplasm of colon (principal); K57.30 Diverticulosis of large intestine without perforation or abscess without bleeding; K64.8 Other hemorrhoids; K56.2 Volvulus; Z83.79 Family history of other diseases of the digestive system; D50.9 Iron deficiency anemia, unspecified; K58.2 Mixed irritable bowel syndrome; E78.5 Hyperlipidemia, unspecified; Z79.02 Long term (current) use of antithrombotics/antiplatelets; Z79.899 Other long term (current) drug therapy
CPT/HCPCS: G0105; 81025; J2704

== ENCOUNTER → 2023-12-15 10:28 | Outpatient (BNV) | payer OTHER, SELFPAY | PROVIDERS: PCP Internal Medicine; Visit Provider Internal Medicine Gastroenterology | DX: Z12.11 Encounter for screening for malignant neoplasm of colon (principal); K59.04 Chronic idiopathic constipation; K57.30 Diverticulosis of large intestine without perforation or abscess without bleeding; K64.8 Other hemorrhoids | CPT/HCPCS: G0105 ==

== ENCOUNTER 2024-01-08 12:39 | Outpatient (AMB) | payer OTHER, SELFPAY ==
--- NOTE | 2024-01-08 12:45 | MHC.OFFVIS ---
Vital Signs 01/08/24 12:48 Height 5 ft 4 in Weight 164 lb 2 oz BMI 28.2 BP 107/74 Blood Pressure Location Lt brachial Position Sitting Pulse 97 Intake Visit Reasons: 6 month follow up Intake Note: Patient follow up for abdominal bloating, Colonoscopy results Patient denies any issues for today. Framing Inspector Required: No Accompanied by: Self / Same As Patient Allergies neomycin [NEOMYCIN] Allergy (Intermediate, Verified 03/23/24 13:54) FUNGAL INFECTION,bleeding naproxen [NAPROXEN] Allergy (Mild, Verified 03/23/24 13:54) HIVES zolpidem [From Ambien] Allergy (Verified 05/25/24 08:43) Weakness Medication List - Last Reconciled 01/08/24 by Krys Bertrand MD benztropine 0.5 mg PO BEDTIME 90 days bupropion HCl XL 300 mg PO QAM cholecalciferol (vitamin D3) 25 mcg PO DAILY 90 days clonazepam 1 mg PO Q8H PRN 30 days dextroamphetamine-amphetamine 15 mg 15 mg PO BID PRN 30 days docusate sodium 100 mg PO DAILY ibuprofen 600 mg PO TID 90 days Lactobacillus rhamnosus GG (Culturelle) 1 cap PO DAILY 90 days linaclotide (Linzess) 290 mcg PO QAM loratadine 10 mg PO DAILY multivitamin with folic acid 400 mcg (Daily-Zoraida (with folic acid)) 1 tab PO DAILY 90 days nicotine (polacrilex) 4 mg buccal Q2H 30 days omeprazole 20 mg PO BID oxcarbazepine 300 mg PO TID 90 days PNV,calcium [id number] acid 27 mg iron- 1 mg ( Vitamins Plus Low Iron) 1 tab PO DAILY psyllium husk (Fiber (psyllium husk)) 0.52 grams PO BID 60 days rosuvastatin 5 mg PO DAILY 90 days semaglutide (weight loss) (Wegovy) 2.4 mg (0.75 mL) subcut QWEEK 4 weeks sennosides (Senna Laxative) 17.2 mg (2 x 8.6 mg) PO BEDTIME PRN vitamin B complex (B Complex-Vitamin B12 tablet) 1 tab PO DAILY ziprasidone HCl 20 mg PO TID HPI HPI 6 month follow up: Details: GI CLINIC VISIT FOR THIS 43 YF (PREVIOUSLY FOLLOWED BY JULIA MAGANA NP) for FU of GERD AND IBS CHRONIC ILLNESSES: chronic fatigue syndrome, anxiety and depression, bipolar disorder, GERD (gastroesophageal reflux disease, IBS (irritable bowel syndrome), 2011 episode of short-term memory loss pain of right hip joint, constipation, unspecified, ADD LABS IN [facility]: 11/13 REVIEWED IMAGING STUDIES: 03/16 upper GI with small-bowel follow-through showed: ? IMPRESSION: ? Mild gastroesophageal reflux otherwise unremarkable upper GI exam ? Normal small bowel follow-through time of less than 30 minutes. ? No mucosal abnormality, narrowing or stricture seen involving the small ? bowel loops. The ileocecal junction is normal. Appendix is normal. ENDOSCOPIC STUDIES:? 12/15/23 COLONOSCOPY SHOWED: Colonoscopy Findings: No polyps were detected Moderate diverticulosis seen in the sigmoid colon small hemorrhoids on retroflexed exam. Plan: Repeat Colonoscopy in 5 years due to family hx of colon cancer Pt placed on the colonoscopy recall list. 10/31/20 EGD AND COLONOSCOPY SHOWED: Endoscopy Findings: STOMACH: Gastritis - negative for HP DUODENUM: Normal - biopsied to check for celiac sprue - normal Colonoscopy Findings:? No polyps were detected. Random biopsies were obtained from the right and left colon - normal Moderate diverticulosis seen in the sigmoid colon Plan:? Patient has an appointment on 11/16/20 in the GI Clinic with Krys Bertrand M.D.. Repeat Colonoscopy interval based on path results - in 5 years due to fair to poor prep. TODAY'S VISIT: Patient follow up for abdominal bloating, Colonoscopy results Patient denies any issues for today. Lost 15 lbs (On Wegovy for high blood pressure) Notes increased gas since she started taking Wegovy Takes Senna at night and Linzess in the morning. Having regular BMs Trying tp stay away from milk products - notes constipation and bloating after milk products. Patient cc: abdominal pain, heartburn, and constipation Patient cc: constipation on and off , also patient wanted to know the correct med for constipation because pharmacy said she can not be in both/ senna and bisacodyl. Two week ago - No BM x 2 days despite taking Linzess Took senna and had bad abdominal cramps Had a Pap smear and was told she had bacterial dysbiosis Takes Linzess 290 mcg every morning and has not been taking the senna Intermittent watery BMs. Tries to have a BM every day. She was taking iron pills daily for ANKUR (related to menstrual blood loss) and stopped taking it after she had Has not been taking iron for the past 2 weeks PAST VISIT: Takes Linzess in the morning Takes fibre pills every day Takes Senna and bisacodyl at bedtime prn for constipation - advised to take Senna daily at bedtime and use Bisacodyl 3-4 times a month prn. Feels abdomen is swollen after she takes Senna Using Ryze instead of coffee - helps get rid of toxins Started a new job ([employer]) from 7 am to 3 pm and has more stress - diet is not good and abdomen feels bloated Everything she eats makes her bloated or goes through her. Gets constipated when she takes water melon with seeds Trying to excercise Lost her brother at age 39 - had fatty liver, had kidney stones and became septic and . Lost wt after her brother . Feeling better - medications are helpful My stomach has been better Taking all the medications Following a bowel program and takes a stool softener, senna, psyllium husk capsule, Linzess and Dulcolax p.r.n. Has a BM daily Has problems if she does not take the Senna Changed her diet and exercising more She would like to switch from Trulance back to Linzess. She feels hungry after she has a BM and thinks she is gaining wt due to Trulance. EGD and colon results reviewed with the patient. Noted spontaneous bruising 2 days after colonoscopy. I have no pain, I poop normal When she takes her medication - she has a 2nd BM in the day. Take dicyclomine at bedtime Lost a few lbs due to taking more fibre in her diet. ? Pain is not so bad ? Continues to have abdominal bloating ? [place] stomach was hurting more after she took dicyclomine. ? Did not like Linzess since she felt she was gaining weight. ? Had trouble loosing weight despite excercising and felt something was wrong with her thyroid. ? Patient denies black stools or rectal bleeding ? Both parents have DM. ? Denies known FH of colon polyps or colon cancer, ? Two paternal cousins have Crohn's disease ? Denies known FH of IBS, Celiac?disease PFSH Medical History Transaminitis Dyslipidemia Bipolar 1 disorder Hx of chronic sinusitis ADD (attention deficit disorder) Depression Irritable bowel syndrome with both constipation and diarrhea Anxiety Surgical History Hx of colonoscopy History of incision and drainage Family History Father Hypertension CVD (cardiovascular disease) Mother Diabetes Maternal Grandmother Liver problem Maternal Grandfather No problems noted. Paternal Grandfather Cancer Family/Other FH: mental illness Paternal Aunt Breast cancer Family/Other Colon cancer Brother Liver disease Social History Household Members: Spouse and Children Housing: House Alcohol intake: former Patient Tobacco Use Status: Current everyday Tobacco user Tobacco use type: Cigarette Cigarettes Per Day: 3 e-Cigarette/Vaping Use: Never Used Second Hand Smoke Exposure: No service: No Current occupational status: employed Current occupational exposures/hazards: No Cognitive needs: No Hearing needs: No Vision needs: No Female Reproductive History Menstrual Age of Menarche: 10 Review of Systems Const All systems reviewed & are unremarkable except as noted in HPI and below Physical Exam Vital Signs: Last Vital Signs Pulse 97 01/08/24 12:48 BP 107/74 01/08/24 12:48 BMI result Body Mass Index 28.2 Const General: healthy appearing and no acute distress Nutritional Appearance: overweight Orientation/consciousness: patient oriented x3 Limitations: no limitations HEENT Head: Yes normal to inspection Ears: hearing grossly normal bilaterally Eyes Sclerae: sclerae normal Pupils: Equal, round and reactive pupils present Neck Neck: Yes normal visual inspection Chest Chest palpation & inspection: normal inspection of the chest Resp Effort & Inspection: normal respiratory effort Auscultation: clear to auscultation bilaterally Cardio Palpation: normal PMI Rate: regular rate Rhythm: regular rhythm Heart sounds: S1 normal heart sound present, S2 normal heart sound present and no murmurs GI Palpation (GI): Soft to palpation, nontender and No hepatosplenomegaly present Auscultation: normal bowel sounds Rectal Exam - Female: deferred Skin General skin exam: no rashes or lesions noted Neuro General: patient oriented x3, gait normal and moves all extremities Cranial nerves: Yes Equal, round and reactive pupils present Psych Appearance: grossly normal Mental Status: mental status grossly normal Assessment & Plan Assessment & Plan (1) Irritable bowel syndrome with both constipation and diarrhea: Code(s): K58.2 - Mixed irritable bowel syndrome Category: Medical (2) GERD (gastroesophageal reflux disease): Code(s): K21.9 - Gastro-esophageal reflux disease without esophagitis Category: Medical Qualifiers: Esophagitis presence: esophagitis presence not specified Qualified Code(s): K21.9 - Gastro-esophageal reflux disease without esophagitis (3) Elevated LFTs: Code(s): R79.89 - Other specified abnormal findings of blood chemistry Category: Medical (4) Abdominal bloating: Code(s): R14.0 - Abdominal distension (gaseous) Category: Medical (5) Iron deficiency anemia: Code(s): D50.9 - Iron deficiency anemia, unspecified Category: Medical Plan 43 YF with chronic fatigue syndrome, anxiety and depression, bipolar disorder, GERD (gastroesophageal reflux disease, IBS (irritable bowel syndrome), 2010 episode of short-term memory loss, pain of right hip joint, constipation, unspecified, ADD seen for a 2nd opinion for evaluation of abdominal pain, GERD, diarrhea alternating with constipation. She complains of heartburn with breakthrough symptoms despite taking omeprazole 20 mg twice daily Notes abdominal pain with intake of certain foods - water melon, other foods with seeds, fried foods and eggs (scrambled eggs are OK) . ? of Lactose intolerance and drinks almond milk. Abdominal pain is likely due to diarrhea predominant IBS. Patient was advised to continue taking fiber supplement and dicyclomine 20 mg 3 times daily p.r.n. for abdominal pain. Pt was switched to Linzess 290 mcg daily at her request since she feels she is gaining weight since she started taking Trulance. Following a bowel program and takes a stool softener, senna, psyllium husk capsule, Linzess and Dulcolax p.r.n. 03/06/23 Pt would like to resume a FODMAP diet (was helpful for her symptoms in the past) Pt handout on FODMAP diet given to the patient. 07/10/23 Two week ago - No BM x 2 days despite taking Linzess Took senna and had bad abdominal cramps Had a Pap smear and was told she had bacterial dysbiosis Takes Linzess 290 mcg every morning and has not been taking the senna Intermittent watery BMs. Tries to have a BM every day. She was taking iron pills daily for ANKUR (related to menstrual blood loss) and stopped taking it after she had Has not been taking iron for the past 2 weeks Pt was advised to have CBC checked for FU of ANKUR Patient advised to take Linzess daily. In addition to take Dulcolax 2 tablets once a month to prevent obstipation/fecal impaction. Elevated LFTs likely due to fatty liver. LFTs have decreased after wt loss of 10 lbs. Schedule abdominal US for FU of elevated LFTs Patient was advised to schedule a colonoscopy (screening and chronic constipation) Poor prep on previous colonoscopy in 2020. She was advised to take Dulcolax 2 tablets daily starting 5 days prior to colonoscopy appointment 11/2023 colonoscopy was performed and results as noted. Advised repeat colon in 5 yrs. FU in 6 months Orders: Orders Hepatitis B Surface Antibody 01/08/24 R79.89 - Other specified abnormal findings of blood chemistry Hepatitis B Surface Antigen 01/08/24 R79.89 - Other specified abnormal findings of blood chemistry Coding Level of Care Code Est Pt Level 4 (65779) Diagnoses Irritable bowel syndrome with both constipation and diarrhea K58.2 Gastroesophageal reflux disease, unspecified whether esophagitis present K21.9 Esophagitis presence: esophagitis presence not specified Elevated LFTs R79.89 Abdominal bloating R14.0 Iron deficiency anemia D50.9 Time Spent (min) 21
[2024-01-08 12:48] VITALS: BP 107/74; PULSE 97; BMI 28.2
== END 2024-01-08 13:15 | disposition home or self-care (01) ==
PROVIDERS: PCP Internal Medicine; Visit Provider Internal Medicine Gastroenterology
DX: K58.2 Mixed irritable bowel syndrome (principal); K21.9 Gastro-esophageal reflux disease without esophagitis; R79.89 Other specified abnormal findings of blood chemistry; R14.0 Abdominal distension (gaseous); D50.9 Iron deficiency anemia, unspecified
CPT/HCPCS: 99499

== ENCOUNTER → 2024-01-08 12:39 | Outpatient (BNVA) | payer OTHER, SELFPAY | PROVIDERS: PCP Internal Medicine; Visit Provider Internal Medicine Gastroenterology ==

== ENCOUNTER 2024-01-09 10:24 | Outpatient (AMB) | payer OTHER, SELFPAY ==
--- NOTE | 2024-01-09 10:30 | MHC.OFFVIS ---
Vital Signs 01/09/24 10:34 Height 5 ft 4 in Weight 164 lb BMI 28.1 BP 120/80 Intake Visit Reasons: vag bump Reconstructive Surgeon: Reconstructive Surgeon Present Allergies neomycin [NEOMYCIN] Allergy (Intermediate, Verified 01/09/24 10:33) FUNGAL INFECTION,bleeding naproxen [NAPROXEN] Allergy (Mild, Verified 01/09/24 10:33) HIVES Is last menstrual period known: Yes Last menstrual period: 12/25/23 HPI Comments Details: Patient is here today with concerns of a painful lump on her right vulva for the last several days appears to be with a oniel, she has attempted to pinch the debris out, attempted cleaning with alcohol and using hydrocortisone along with warm compresses which have not helped. She is worried that she might develop an abscess which she has had experienced in her axillary region in the past. [facility] Medical History Transaminitis Dyslipidemia Bipolar 1 disorder Hx of chronic sinusitis ADD (attention deficit disorder) Depression Irritable bowel syndrome with both constipation and diarrhea Anxiety Surgical History Hx of colonoscopy History of incision and drainage Family History Father Hypertension CVD (cardiovascular disease) Mother Diabetes Maternal Grandmother Liver problem Maternal Grandfather No problems noted. Paternal Grandfather Cancer Family/Other FH: mental illness Paternal Aunt Breast cancer Family/Other Colon cancer Brother Liver disease Social History Household Members: Spouse and Children Housing: House Alcohol intake: former Patient Tobacco Use Status: Current everyday Tobacco user Tobacco use type: Cigarette Cigarettes Per Day: 3 e-Cigarette/Vaping Use: Never Used Second Hand Smoke Exposure: No service: No Current occupational status: employed Current occupational exposures/hazards: No Cognitive needs: No Hearing needs: No Vision needs: No Female Reproductive History Menstrual Age of Menarche: 10 Date of last menstrual period: 12/25/23 Review of Systems Const All systems reviewed & are unremarkable except as noted in HPI and below Endo Reports no additional complaints Physical Exam Vital Signs: Last Vital Signs BP 120/80 01/09/24 10:34 BMI result Body Mass Index 28.1 Const General: cooperative, healthy appearing and no acute distress Other: External inspection only: Right lower labial sebaceous gland, inflamed and plugged with superficial tip of debris-unable to extract with gentle pressure, no evidence of cellulitis or abscess. Psych Appearance: well kempt Attitude: cooperative Thought process: Normal thought process present Office Procedures Incision and Drainage Details: Procedure-Incision and drainage: Counseled regarding risks for pain, infection, bleeding, scarring, tissue injury including to the nerves, blood supply and scarring to the skin surface with possible permanent skin discoloration. Risks complications for the procedure or subsequent infection leading to an abscess may require further evaluation and treatment requiring anesthesia, more invasive procedures leading to potential complications. She was consented for the incision and drainage, and has signed the consent form. All questions were answered. I and D procedure: The patient was placed in the dosal lithotomy position. Using aseptic technique for the procedure the biopsy area was cleansed and prepped with Betadine solution. The skin area was anesthetized with Lidocaine 1% using a 3cc syringe and a 25g needle, 0.5cc was injected perpendicular into the dermis at the site until elevation was noted. A #11 blade was utilized to open the skin surface 1-2 mm, the debris was gently pushed out and the area probed gently to remove any residual debris. The bleeding site was minimal and controlled by direct pressure for several seconds. Vaseline ointment and guaze dressing was applied to the site. The patient tolerated the procedure well and left the department in good condition. Post Care Instructions: Keep the area clean and dry. Wear loose clothing and avoid intimacy until well healed. Report any signs of infection: Fever flu-like symptom, increased pain, redness, any foul odor or pus discharge. Call sooner if any concerns. All of her questions and concerns were addressed to the best of my ability and shared decision making. She is agreeable to the plan of care. This note is constructed using voice recognition software. While every effort has been made to ensure accuracy, filling carrier errors may have been included. Incision and drainage performed by: Marta Rosa Informed consent given: Yes Consent signed: Yes Anesthesia: local Incision with: #11 blade Drainage quality: caseous Probed cavity: Yes Culture taken: No Hemostasis: pressure Dressing: gauze Patient tolerated procedure: well Complications: No Assessment & Plan Assessment & Plan (1) Vulvar furuncle: Code(s): N76.4 - Abscess of vulva (2) Encounter for incision and drainage procedure: Code(s): Z76.89 - Persons encountering health services in other specified circumstances Plan Patient request her pimple to be removed, I explained to her it is a very small area, option to continue to warm compress and observe-most likely will improve but over time reoccur due to the solid matter within the cavity, she requested that it be removed today as it is very tender and upsetting for her with it not improving. Counseled regarding incision and removal of exudate, patient agrees to proceed. See procedure notes. This note is constructed using voice recognition software. While every effort has been made to ensure accuracy, filling carrier errors may have been included. Coding Level of Care Code Procedure Only Diagnoses Vulvar furuncle N76.4 Encounter for incision and drainage procedure Z76.89
[2024-01-09 10:34] VITALS: BP 120/80; BMI 28.1
== END 2024-01-09 12:55 | disposition home or self-care (01) ==
LOC: HO.HWS 10:24
PROVIDERS: PCP Internal Medicine; Visit Provider Advanced Practice Midwife
DX: N76.4 Abscess of vulva (principal)
CPT/HCPCS: 56405

== ENCOUNTER → 2024-01-09 10:24 | Outpatient (BNVA) | payer OTHER, SELFPAY | PROVIDERS: PCP Internal Medicine; Visit Provider Advanced Practice Midwife | DX: N76.4 Abscess of vulva (principal); Z76.89 Persons encountering health services in other specified circumstances | CPT/HCPCS: 56405 ==

== ENCOUNTER 2024-02-07 06:33 | Emergency (ER) | payer OTHER, SELFPAY ==
[2024-02-07 06:55] VITALS: BP 119/87; PULSE 78; RESP 18; TEMP 36.4; O2SAT 99; BMI 28.3
--- NOTE | 2024-02-07 07:39 | ED.GENADULT ---
HPI - General Adult General Chief complaint: Allergic Reaction Stated complaint: bee sting, hives Time Seen by Provider: 02/07/24 07:39 Source: patient Mode of arrival: ambulatory Limitations: no limitations History of Present Illness ED Provider: DR. Cai HPI narrative: 43-year-old female came in for evaluation of a bee sting to her right middle finger 2 days ago the patient went for hiking seeing day patient developed chills with no fever the next day started to have burning sensation to both hands and feet with small rash, no shortness of breath, no voice change, no sore throat, no throat swelling. Patient noticed swelling in her right middle finger. No known history of allergy to bee sting. Related Data Home Medications ?Medication ?Instructions ?Recorded ?Confirmed vitamin B complex (B 1 tab PO DAILY 10/02/22 01/08/24 Complex-Vitamin B12 tablet) Previous Rx's ?Medication ?Instructions ?Recorded sennosides 8.6 mg tablet (Senna 17.2 mg (2 x 8.6 mg) PO BEDTIME 01/18/23 Laxative) PRN constipation #60 caps loratadine 10 mg tablet 10 mg PO DAILY #90 caps 09/03/23 rosuvastatin 5 mg tablet 5 mg PO DAILY 90 days #90 tabs 09/03/23 multivitamin with folic acid 400 1 tab PO DAILY 90 days #90 tabs 09/21/23 mcg tablet (Daily-Zoraida (with folic acid)) omeprazole 20 mg capsule,delayed 20 mg PO BID #60 caps 10/31/23 release linaclotide 290 mcg capsule 290 mcg PO QAM #30 caps 11/27/23 (Linzess) cholecalciferol (vitamin D3) 25 25 mcg PO DAILY 90 days #90 caps 11/28/23 mcg (1,000 unit) capsule docusate sodium 100 mg capsule 100 mg PO DAILY #90 caps 11/28/23 bupropion HCl 300 mg 24 hr tablet, 300 mg PO QAM #90 caps 11/30/23 extended release nicotine (polacrilex) 4 mg gum 4 mg buccal Q2H 30 days #40 ea 12/29/23 Lactobacillus rhamnosus GG 10 1 cap PO DAILY 90 days #90 caps 01/26/24 billion cell capsule (Culturelle) benztropine 0.5 mg tablet 0.5 mg PO BEDTIME 90 days #90 caps 01/26/24 clonazepam 1 mg tablet 1 mg PO Q8H PRN anxiety 30 days 01/26/24 #90 tabs dextroamphetamine-amphetamine 15 15 mg PO BID PRN attention 30 days 01/26/24 mg tablet #60 tabs ibuprofen 600 mg tablet 600 mg PO TID 90 days #270 tabs 01/26/24 oxcarbazepine 300 mg tablet 300 mg PO TID 90 days #270 caps 01/26/24 psyllium husk 0.52 gram capsule 0.52 g PO BID 60 days #120 caps 01/26/24 (Fiber (psyllium husk)) semaglutide (weight loss) 2.4 2.4 mg (0.75 mL) subcut QWEEK 4 01/26/24 mg/0.75 mL subcutaneous pen weeks #3 mL injector ([place]) ziprasidone HCl 20 mg capsule 20 mg PO TID #270 caps 01/26/24 doxycycline hyclate 100 mg tablet 100 mg PO BID #14 tabs 02/07/24 prednisone 20 mg tablet 20 mg PO BID #7 tabs 02/07/24 Allergies Allergy/AdvReac Type Severity Reaction Status Date / Time neomycin [NEOMYCIN] Allergy Intermediate FUNGAL Verified 02/07/24 06:56 INFECTION,bleeding naproxen [NAPROXEN] Allergy Mild HIVES Verified 02/07/24 06:56 Review of Systems Review of Systems: All other systems are reviewed and are negative Constitutional: Reports as per HPI and Reports no additional constitutional complaints Eyes: Reports as per HPI and Reports no additional eye complaints Reports system reviewed and no additional complaints, except as documented Cardiovascular: Reports as per HPI and Reports no additional cardiovascular complaints Respiratory: Reports as per HPI and Reports no additional respiratory complaints Gastrointestinal: Reports as per HPI and Reports no additional gastrointestinal complaints Genitourinary: Reports no additional female genitourinary complaints Musculoskeletal: Reports no additional musculoskeletal complaints Skin/Breast: Reports system reviewed and no additional complaints, except as docu Psychiatric: Reports no additional psychiatric complaints Endocrine: Reports no additional endocrine complaints Hematologic/Lymphatic: Reports no additional hematologic/lymphatic complaints Allergic/Immunologic: Reports no additional allergic/immunologic complaints Reports system reviewed and no additional complaints, except as documented and Reports Abnormal speech present PMFSH Past Medical History Medical History Transaminitis Dyslipidemia Bipolar 1 disorder Hx of chronic sinusitis ADD (attention deficit disorder) Depression Irritable bowel syndrome with both constipation and diarrhea Anxiety Surgical History Hx of colonoscopy History of incision and drainage Family History Family History Father Hypertension CVD (cardiovascular disease) Mother Diabetes Maternal Grandmother Liver problem Maternal Grandfather No problems noted. Paternal Grandfather Cancer Family/Other FH: mental illness Paternal Aunt Breast cancer Family/Other Colon cancer Brother Liver disease Social History Social History Household Members: Spouse and Children Housing: House Alcohol intake: former Patient Tobacco Use Status: Current everyday Tobacco user Tobacco use type: Cigarette Cigarettes Per Day: 3 e-Cigarette/Vaping Use: Never Used Second Hand Smoke Exposure: No Advance Directives: No Advance Directives Information Provided: Yes Do you have a plan to hurt others: No Plan service: No Current occupational status: employed Current occupational exposures/hazards: No Cognitive needs: No Hearing needs: No Vision needs: No Physical Exam ED Vital Signs: Vital Signs - 24 hr 02/07/24 06:55 Temperature 97.5 F Pulse Rate 78 Respiratory Rate 18 Blood Pressure 119/87 Pulse Oximetry 99 Oxygen Delivery Method Room Air BMI result Body Mass Index 28.3 Vital signs have been reviewed and appear to be correct. Blood pressure elevated. Heart rate normal. Respiratory rate normal. Temperature normal. Oxygen saturation normal. Appearance: Alert. Oriented X3. No acute distress. Head: Normal external exam. Normocephalic. Atraumatic. No Vivas signs noted. No raccoon eyes noted Eyes: PERRLA. EOMI. Conjunctiva and sclera normal. Eyelids normal. ENT: TM's Normal. Pharynx normal. Uvula midline. Moist mucous membranes. No trismus noted. No drooling noted. No muffled voice noted. Neck: Normal inspection. Neck supple. FROM. No adenopathy. Thyroid Normal. No meningeal signs. No neck mass noted. CVS: Normal heart rate and rhythm. Heart sound normal. No murmurs noted. Pulses normal throughout. Respiratory: No respiratory distress. Painless inspiration. Breath sounds normal. No wheezes/rales/rhonchi noted. Chest nontender. No accessory muscle usage noted or decreased air movement noted. Abdomen: Soft and nontender. Bowel sounds normal in all 4 quadrants. No distention noted. No organomegaly noted. No visible injury noted. Back: No CVA tenderness. Full range of motion noted. Skin: Skin warm and dry. Normal skin color. Normal skin turgor. No rashes/lesions/lacerations noted. Extremities: right hand exam: Right middle finger focal swelling 2 x 2 cm, no retained foreign body. Neuro: Oriented X 3. Cranial nerve exam: II-XII are grossly intact No motor deficit. No sensory deficit. Reflexes normal. Course Reevaluation(s) Reevaluation #1: Focal infected bee sting, will start on doxycycline, for itching and small rash will start the patient on short course of prednisone. Time: 07:47 Medical Decision Making Differential Diagnosis Differential Diagnoses: The differential diagnosis associated with the presentation includes ( Allergic reaction, focal infected bee sting , cellulitis, abscess.) Admission/Observation Consideration of admission/observation: Escalation of care including admission/observation considered Discharge Plan Discharge Clinical Impression: Infected insect bite, Allergic reaction Patient Disposition: Home, Self-Care Instructions: General Allergic Reaction (ED) Prescriptions: New doxycycline hyclate 100 mg tablet 100 mg PO BID Qty: 14 0RF prednisone 20 mg tablet 20 mg PO BID Qty: 7 0RF No Action sennosides [Senna Laxative] 8.6 mg tablet 17.2 mg PO BEDTIME PRN (Reason: constipation) Qty: 60 4RF loratadine 10 mg tablet 10 mg PO DAILY Qty: 90 6RF rosuvastatin 5 mg tablet 5 mg PO DAILY 90 Days Qty: 90 3RF multivitamin with folic acid [Daily-Zoraida (with folic acid)] 400 mcg tablet 1 tab PO DAILY 90 Days Qty: 90 3RF omeprazole 20 mg capsule,delayed release(DR/EC) 20 mg PO BID Qty: 60 3RF Linzess 290 mcg capsule 290 mcg PO QAM Qty: 30 3RF cholecalciferol (vitamin D3) 25 mcg (1,000 unit) capsule 25 mcg PO DAILY 90 Days Qty: 90 2RF docusate sodium 100 mg capsule 100 mg PO DAILY Qty: 90 3RF bupropion HCl 300 mg tablet extended release 24 hr 300 mg PO QAM Qty: 90 3RF nicotine (polacrilex) 4 mg gum 4 mg buccal Q2H 30 Days Qty: 40 11RF Culturelle 10 billion cell capsule 1 cap PO DAILY 90 Days Qty: 90 1RF psyllium husk [Fiber (psyllium husk)] 0.52 gram capsule 0.52 g PO BID 60 Days Qty: 120 3RF benztropine 0.5 mg tablet 0.5 mg PO BEDTIME 90 Days Qty: 90 0RF clonazepam 1 mg tablet 1 mg PO Q8H PRN (Reason: anxiety) 30 Days Qty: 90 0RF dextroamphetamine-amphetamine 15 mg tablet 15 mg PO BID PRN (Reason: attention) 30 Days Qty: 60 0RF oxcarbazepine 300 mg tablet 300 mg PO TID 90 Days Qty: 270 0RF ziprasidone HCl 20 mg capsule 20 mg PO TID Qty: 270 0RF Wegovy 2.4 mg/0.75 mL pen injector 2.4 mg subcut QWEEK 28 Days Qty: 3 6RF ibuprofen 600 mg tablet 600 mg PO TID 90 Days Qty: 270 3RF vitamin B complex [B Complex-Vitamin B12] Tablet 1 tab PO DAILY Referrals: Allyson Kaur MD [Primary Care Provider] - Print Language: Albanian
[2024-02-07] MEDS: predniSONE 20 MG TABLET PO (08:15)
[2024-02-07] MEDS: Doxycycline Monohydrate 100 MG CAPSULE PO (08:15)
[2024-02-07 08:17] VITALS: BP 130/86; PULSE 98; RESP 18; TEMP 36.5; O2SAT 100
[2024-02-07 08:29] VITALS: BP 130/86; PULSE 98; RESP 18; TEMP 36.5; O2SAT 100
== END 2024-02-07 08:29 | disposition home or self-care (01) ==
PROVIDERS: Emergency Provider Emergency Medicine; PCP Internal Medicine
DX: L08.9 Local infection of the skin and subcutaneous tissue, unspecified (principal); R21 Rash and other nonspecific skin eruption; T63.441A Toxic effect of venom of bees, accidental (unintentional), initial encounter; Y92.9 Unspecified place or not applicable
CPT/HCPCS: 99283; 99284

== ENCOUNTER 2024-02-07 10:42 | Outpatient (REF) | payer OTHER, SELFPAY ==
--- NOTE | ~2024-02-07 | MM_ITS ---
EXAMINATION: MM SCREENING DIGITAL BREAST TOMOSYNTHESIS, BILATERAL CLINICAL INFORMATION: Screening. Asymptomatic. COMPARISON: Mammography: Comparison is made with available priors TECHNIQUE: Digital breast mammography with tomosynthesis is performed in both the craniocaudal and mediolateral oblique views along with computer-aided detection (CAD). FINDINGS: The breasts are heterogeneously dense, which may obscure small masses (ACR BI-RADS breast composition Category c). There are no significant masses, abnormal calcifications, or other abnormalities. MM/MM tomosynthesis screening BI IMPRESSION: No mammographic evidence of malignancy. ASSESSMENT: BI-RADS BI-RADS 1 - Negative RECOMMENDATION: Routine annual mammography screening. 1 year F/U This examination should not preclude the clinical evaluation of a suspicious palpable abnormality. This patient's information was entered into a reminder system with a target due date for their next mammogram. Electronically signed by: Neeta Barbosa DO 02/20/2024 10:42 AM EDT
== END 2024-02-07 10:43 | disposition home or self-care (01) ==
LOC: HO.MAMMO 10:42
PROVIDERS: PCP Internal Medicine; Visit Provider Internal Medicine
DX: Z12.31 Encounter for screening mammogram for malignant neoplasm of breast (principal)
CPT/HCPCS: 77063; 77067

== ENCOUNTER → 2024-02-07 10:45 | Outpatient (BNV) | payer OTHER, SELFPAY | PROVIDERS: PCP Internal Medicine; Visit Provider Internal Medicine | DX: Z12.31 Encounter for screening mammogram for malignant neoplasm of breast (principal) | CPT/HCPCS: 77063; 77067 ==

== ENCOUNTER 2024-03-02 09:05 | Outpatient (AMB) | payer OTHER, SELFPAY ==
[2024-03-02 09:14] VITALS: BP 122/82; PULSE 103; O2SAT 99; BMI 26.9
--- NOTE | 2024-03-02 09:14 | A.OFFPC_ITS ---
Vital Signs 03/02/24 09:14 Height 5 ft 4 in Weight 157 lb BMI 26.9 BP 122/82 Blood Pressure Location Lt brachial Position Sitting Pulse 103 H Pulse Source Pulse Oximeter Pulse Oximetry (%) 99 Oxygen Delivery Method Room Air Intake Visit Reasons: [facility] [place] bee sting, hives Quarter Doper Required: No Accompanied by: Self / Same As Patient Allergies neomycin [NEOMYCIN] Allergy (Intermediate, Verified 03/02/24 09:14) FUNGAL INFECTION,bleeding naproxen [NAPROXEN] Allergy (Mild, Verified 03/02/24 09:14) HIVES Tobacco use date assessed: 09/25/23 Dental Screening Dental Screen Date: 09/25/23 HPI HPI Comments History of Present Illness Details 43 y/o female patient who [facility] to [facility] for EDF. She was admitted at [facility] on 02/07/24 after a Bee sting and had an allergic reaction. She was discharged home the same day on stable condition. Today Pt asking for an Epi Peni. Hives have resolved. Denies SOB, CP or facial edema. Pt c/o urinary frequency today and asking for urine check. PFSH Medical History Transaminitis Dyslipidemia Bipolar 1 disorder Hx of chronic sinusitis ADD (attention deficit disorder) Depression Irritable bowel syndrome with both constipation and diarrhea Anxiety Surgical History Hx of colonoscopy History of incision and drainage Family History Father Hypertension CVD (cardiovascular disease) Mother Diabetes Maternal Grandmother Liver problem Maternal Grandfather No problems noted. Paternal Grandfather Cancer Family/Other FH: mental illness Paternal Aunt Breast cancer Family/Other Colon cancer Brother Liver disease Social History Household Members: Spouse and Children Housing: House Alcohol intake: former Patient Tobacco Use Status: Current everyday Tobacco user Tobacco use type: Cigarette Cigarettes Per Day: 3 e-Cigarette/Vaping Use: Never Used Second Hand Smoke Exposure: No service: No Current occupational status: employed Current occupational exposures/hazards: No Cognitive needs: No Hearing needs: No Vision needs: No Female Reproductive History Menstrual Age of Menarche: 10 Questionnaire Thrive Questionnaire Date Thrive assessed: 09/25/23 OKSANA-7 AMB Questionnaire OKSANA-7 Date OKSANA - 7 assessed: 09/25/23 Source: Developed by Drs. Sravan Ruffin, Janny Graham, Rene Giang and colleagues, with an educational rancho from [employer]. Review of Systems Const All systems reviewed & are unremarkable except as noted in HPI and below Physical exam (Primary Care) Vital Signs: Last Vital Signs Pulse 103 H 03/02/24 09:14 BP 122/82 03/02/24 09:14 Pulse Ox 99 03/02/24 09:14 Oxygen Delivery Method Room Air 03/02/24 09:14 BMI result Body Mass Index 26.9 Tobacco/Smoking Status: Tobacco use Status Tobacco use date assessed 09/25/23 03/02/24 09:21 Patient Tobacco Use Status Current everyday Tobacco 03/02/24 09:21 Tobacco use type Cigarette 03/02/24 09:21 e-Cigarette/Vaping Use Never Used 03/02/24 09:21 Thrive Assessment: Date of Thrive Assessment Date Thrive assessed 09/25/23 03/02/24 09:21 Const General: cooperative and no acute distress Orientation/consciousness: patient oriented x3 Resp Effort & Inspection: normal respiratory effort and able to speak in complete sentences Auscultation: clear to auscultation bilaterally Cardio Heart sounds: S1 normal heart sound present and S2 normal heart sound present Skin General skin exam: no rashes or lesions noted Neuro General: patient oriented x3, gait normal and moves all extremities Results AMB Urinalysis, Automated UA Leukoctes 0 Vincent/uL Last Edit by CARLEY Gleason on 03/02/24 09:44 UA Nitrite Negative Last Edit by CARLEY Gleason on 03/02/24 09:44 UA Urobilinogen 0.2 mg/dL Last Edit by CARLEY Gleason on 03/02/24 09:44 UA Protein 15 mg/dL Last Edit by CARLEY Gleason on 03/02/24 09:44 UA pH 6.0 Last Edit by CARLEY Gleason on 03/02/24 09:44 UA Blood 1 Duane/uL Last Edit by CARLEY Gleason on 03/02/24 09:44 UA Specific Adams 0 Last Edit by CARLEY Gleason on 03/02/24 09:44 UA Ketone Last Edit by CARLEY Gleason on 03/02/24 09:44 UA Bilirubin 1 mg/dL Last Edit by CARLEY Gleason on 03/02/24 09:44 UA Glucose 0 mg/dL Last Edit by CARLEY Gleason on 03/02/24 09:44 Coding Level of Care Code Est Pt Level 4 (12215) Diagnoses Urinary tract infection symptoms R39.9 Allergic reaction to bee sting T63.441A Time Spent (min) 20 Comment Spent on reviewing Hospital charts and Patient education. Assessment & Plan Assessment & Plan (1) Urinary tract infection symptoms: Code(s): R39.9 - Unspecified symptoms and signs involving the genitourinary system Plan: Urinalysis negative. (2) Allergic reaction to bee sting: Code(s): T63.441A - Toxic effect of venom of bees, accidental (unintentional), initial encounter Plan: Epi Pen were prescribed by PCP and sent to pharmacy 02/28
== END 2024-03-02 10:06 | disposition home or self-care (01) ==
LOC: HO.HMCH 09:05
PROVIDERS: PCP Internal Medicine; Visit Provider Nurse Practitioner Family
DX: R39.9 Unspecified symptoms and signs involving the genitourinary system (principal); T63.441A Toxic effect of venom of bees, accidental (unintentional), initial encounter; Z13.9 Encounter for screening, unspecified

== ENCOUNTER → 2024-03-02 09:05 | Outpatient (BNVA) | payer OTHER, SELFPAY | PROVIDERS: PCP Internal Medicine; Visit Provider Nurse Practitioner Family | DX: R39.9 Unspecified symptoms and signs involving the genitourinary system (principal); T63.441A Toxic effect of venom of bees, accidental (unintentional), initial encounter; Y92.9 Unspecified place or not applicable | CPT/HCPCS: 81003; 99212 ==

== ENCOUNTER 2024-03-23 13:29 | Outpatient (AMB) | payer OTHER, SELFPAY ==
--- NOTE | 2024-03-23 13:32 | MHC.PC.OV ---
Vital Signs 03/23/24 13:34 Height 5 ft 4 in Weight 157 lb BMI 26.9 BP 118/80 Blood Pressure Location Lt brachial Position Sitting Intake Visit Reasons: annual Intake Note: Patient here for an annual physical exam Fill Technician Required: No Accompanied by: Self / Same As Patient Allergies neomycin [NEOMYCIN] Allergy (Intermediate, Verified 03/23/24 13:54) FUNGAL INFECTION,bleeding naproxen [NAPROXEN] Allergy (Mild, Verified 03/23/24 13:54) HIVES Medication List - Last Reconciled 03/23/24 by Allyson Rahman MD benztropine 0.5 mg PO BEDTIME 90 days bupropion HCl XL 300 mg PO QAM cholecalciferol (vitamin D3) 25 mcg PO DAILY 90 days clonazepam 1 mg PO Q8H PRN 30 days dextroamphetamine-amphetamine 15 mg 15 mg PO BID PRN 30 days docusate sodium 100 mg PO DAILY epinephrine 0.1 mg (0.1 mL) IM ONCE PRN 1 day ibuprofen 600 mg PO TID 90 days Lactobacillus rhamnosus GG (Culturelle) 1 cap PO DAILY 90 days linaclotide (Linzess) 290 mcg PO QAM loratadine 10 mg PO DAILY multivitamin with folic acid 400 mcg (Daily-Zoraida (with folic acid)) 1 tab PO DAILY 90 days nicotine (polacrilex) 4 mg buccal Q2H 30 days omeprazole 20 mg PO BID oxcarbazepine 300 mg PO TID 90 days psyllium husk (Fiber (psyllium husk)) 0.52 grams PO BID 60 days rosuvastatin 5 mg PO DAILY 90 days semaglutide (weight loss) (Wegovy) 2.4 mg (0.75 mL) subcut QWEEK 4 weeks sennosides (Senna Laxative) 17.2 mg (2 x 8.6 mg) PO BEDTIME PRN vitamin B complex (B Complex-Vitamin B12 tablet) 1 tab PO DAILY ziprasidone HCl 20 mg PO TID Tobacco use date assessed: 09/25/23 Dental Screening Dental Screen Date: 03/23/24 Did you have a dental visit in the last 12 months?: No Did you have a dental problem in the last 6 months where you did not have access to dental care?: No Was dental information given to patient?: Patient has dentist HPI HPI Comments History of Present Illness Details The patient is a 43-year-old female presenting for an annual physical examination. She reports significant weight loss, having reduced her weight from a high of 176 pounds in June to 157 pounds at present, attributed to treatment with Wegovy without notable side effects. She also has a history of Bipolar Disorder for which she uses Ziprasidone, 20 mg three times daily since 2010, though there are insurance coverage issues for this medication. A history of anxiety is noted with clonazepam prescribed as needed. The patient has been diagnosed with Hyperlipidemia and is currently on rosuvastatin, 5 mg once daily. She also experiences GERD, managed with omeprazole, 20 mg twice daily. Constipation is treated with docusate. There is a history of allergic reactions to bee stings, with a notable incident leading to localized swelling on the hand but no systemic symptoms. The patient also discusses a migraine history dating back to adolescence, with recent episodes causing pressure sensation on the right side of the head. She expressed concern regarding memory issues and headaches persisting for more than two weeks, seeking a CT or MRI to rule out acute causes. - Mammogram completed this year. - Pap smear completed in 2021, showing normal results. - Colonoscopy completed 2023. - Tdap vaccine administered in 2015; next due in 2025. - Blood work including cholesterol, glucose, kidney, liver function, and Vitamin D level planned for evaluation. [facility] Medical History (Updated 03/23/24 @ 14:12 by Allyson Rahman MD) Transaminitis Dyslipidemia Bipolar 1 disorder Hx of chronic sinusitis ADD (attention deficit disorder) Depression Irritable bowel syndrome with both constipation and diarrhea Anxiety Surgical History Hx of colonoscopy History of incision and drainage Family History Father Hypertension CVD (cardiovascular disease) Mother Diabetes Maternal Grandmother Liver problem Maternal Grandfather No problems noted. Paternal Grandfather Cancer Family/Other FH: mental illness Paternal Aunt Breast cancer Family/Other Colon cancer Brother Liver disease Social History Household Members: Spouse and Children Housing: House Alcohol intake: former Patient Tobacco Use Status: Current everyday Tobacco user Tobacco use type: Cigarette Cigarettes Per Day: 3 e-Cigarette/Vaping Use: Never Used Second Hand Smoke Exposure: No service: No Current occupational status: employed Current occupational exposures/hazards: No Cognitive needs: No Hearing needs: No Vision needs: No Female Reproductive History Menstrual Age of Menarche: 10 Questionnaire Thrive Questionnaire Date Thrive assessed: 09/25/23 OKSANA-7 AMB Questionnaire OKSANA-7 Date OKSANA - 7 assessed: 09/25/23 Source: Developed by Drs. Sravan Ruffin, Janny Graham, Rene Giang and colleagues, with an educational rancho from [employer]. Review of Systems Const All systems reviewed & are unremarkable except as noted in HPI and below Card Denies chest pain at rest, Denies chest pain with activity, Denies edema, Denies irregular heart rhythm, Denies claudication, Denies dyspnea, Denies dyspnea on exertion, Denies orthopnea, Denies paroxysmal nocturnal dyspnea and Denies slow heart rate Resp Denies cough, Denies dyspnea and Denies dyspnea on exertion GI Denies abdominal pain, Denies change in bowel habits, Denies excessive flatus, Denies nausea and Denies vomiting Physical exam (Primary Care) Vital Signs: Last Vital Signs BP 118/80 03/23/24 13:34 BMI result Body Mass Index 26.9 Tobacco/Smoking Status: Tobacco use Status Tobacco use date assessed 09/25/23 03/23/24 13:39 Patient Tobacco Use Status Current everyday Tobacco 03/23/24 13:39 Tobacco use type Cigarette 03/23/24 13:39 e-Cigarette/Vaping Use Never Used 03/23/24 13:39 Thrive Assessment: Date of Thrive Assessment Date Thrive assessed 09/25/23 03/23/24 13:39 [facility] Head: Yes normal to inspection, Yes normocephalic and Yes atraumatic Ears: external ears normal Eyes General: appearance normal, both eyes and all related structures Eyelids: Yes eyelids normal Conjunctivae: conjunctivae normal Neck Neck: Yes normal visual inspection and Yes supple Resp Effort & Inspection: normal respiratory effort Auscultation: clear to auscultation bilaterally Cardio Jugular venous distension: no JVD Rate: regular rate Rhythm: regular rhythm Heart sounds: S1 normal heart sound present and S2 normal heart sound present GI Inspection: Yes normal to inspection Palpation (GI): Soft to palpation and nontender Auscultation: normal bowel sounds Skin General skin exam: no rashes or lesions noted Neuro General: no focal motor deficits Extrem General: Yes full ROM Psych Appearance: grossly normal Coding Level of Care Code Est Pt Level 3 (05794) Est Pt Prev Care 40-64y(28150) Diagnoses Physical exam Z00.00 Bipolar 1 disorder F31.9 Blurry vision H53.8 Persistent headaches R51.9 Time Spent (min) 35 Assessment & Plan Assessment & Plan (1) Physical exam: Code(s): Z00.00 - Encounter for general adult medical examination without abnormal findings Category: Medical (2) Bipolar 1 disorder: Code(s): F31.9 - Bipolar disorder, unspecified Category: Medical (3) Blurry vision: Code(s): H53.8 - Other visual disturbances Category: Medical (4) Persistent headaches: Code(s): R51.9 - Headache, unspecified Category: Medical Plan - Obesity: Continue Wegovy regimen, monitor for any side effects. - Bipolar Disorder: Investigate insurance issues related to Ziprasidone coverage. - Anxiety: Continue clonazepam as prescribed for anxiety management. - Hyperlipidemia: Monitor cholesterol levels with planned fasting blood work. - GERD: Continue omeprazole 20 mg twice daily. - Constipation: Continue use of docusate. - Migraine: Order MRI given persistent symptoms over two weeks. - Allergies: Issue prescribed EpiPen for bee sting allergy; discuss insurance coverage for a cost-effective alternative. - Health Maintenance: Carry out planned fasting blood work and adherence to preventive care schedule. Patient was informed and verbally consented to the use of an ambient scribe for clinic note documentation during this visit. Orders: Orders MR head/brain wo con Today R41.3 - Other amnesia, R51.9 - Headache, unspecified Lipid Panel Today E78.5 - Hyperlipidemia, unspecified Vitamin D 25-OH Total Today E55.9 - Vitamin D deficiency, unspecified Comprehensive [place]. Panel Fast Today Z00.00 - Encounter for general adult medical examination without abnormal findings Complete Blood Count Auto Diff Today D64.9 - Anemia, unspecified IRON PROFILE Today D64.9 - Anemia, unspecified Referrals Ophthalmology Referral H53.8 - Other visual disturbances Medications: Refilled ziprasidone HCl 20 mg PO TID 270 caps 0RF oxcarbazepine 300 mg PO TID 90 days 270 caps 0RF epinephrine 0.1 mg (0.1 mL) IM ONCE 1 day PRN 2 ea 1RF anaphylaxis
[2024-03-23 13:34] VITALS: BP 118/80; BMI 26.9
== END 2024-03-23 14:13 | disposition home or self-care (01) ==
LOC: HO.HMCH 13:29
PROVIDERS: PCP Internal Medicine; Visit Provider Internal Medicine
DX: Z00.00 Encounter for general adult medical examination without abnormal findings (principal); R51.9 Headache, unspecified; H53.8 Other visual disturbances; F31.9 Bipolar disorder, unspecified

== ENCOUNTER → 2024-03-23 13:29 | Outpatient (BNVA) | payer OTHER, SELFPAY | PROVIDERS: PCP Internal Medicine; Visit Provider Internal Medicine | DX: Z00.00 Encounter for general adult medical examination without abnormal findings (principal); F31.9 Bipolar disorder, unspecified; H53.8 Other visual disturbances; R51.9 Headache, unspecified | CPT/HCPCS: 99212; 99396 ==

== ENCOUNTER 2024-03-30 11:49 | Outpatient (REF) | payer OTHER, SELFPAY ==
[2024-03-30 11:58] LABS: MANUAL DIFF FLAG NO
[2024-03-30 12:44] LABS: Basophils Percent Auto 0.6 % (0-2); Eosinophils Absolute Auto 0.1 X10*3/uL (0.0-0.4); Eosinophils Percent Auto 1.8 % (0-4); Hematocrit 43.6 % (37.0-47.0); Hemoglobin 14.5 g/dl (12.0-16.0); Imm Gran Abs Auto 0.02 X10*3/uL (0.00-0.03); Imm Gran Pct Auto 0.3 % (0.0-0.4); Lymphocytes Absolute Auto 2.3 X10*3/uL (1.2-4.9); Lymphocytes Percent Auto 34.5 % (20-40); Mean Corpuscular HGB Conc 33.3 g/dl (31.0-35.0); Mean Corpuscular Hemoglobin 29.8 pg (27.0-33.0); Mean Corpuscular Volume 89.5 fL (80.0-98.0); Mean Platelet Volume 11.5 fL (9.4-12.3); Monocytes Absolute Auto 0.5 X10*3/uL (0.1-1.2); Monocytes Percent Auto 7.3 % (2-11); Neutrophils Absolute Auto 3.6 x10*3/uL (2.0-8.3); Neutrophils Percent Auto 55.5 % (45-73); Platelet Count 205 X10*3/uL (160-400); Red Blood Count 4.87 X10*6/uL (4.20-5.50); Red Cell Distribution Width 12.9 % (11.0-16.0); White Blood Count 6.6 X10*3/uL (4.8-10.8)
[2024-03-30 13:31] LABS: Alanine Aminotransferase 52 U/L (0-31); Albumin Level 4.4 g/dL (3.5-5.0); Alkaline Phosphatase 85 U/L (39-117); Anion Gap 9 (12-20); Aspartate Amino Transferase 24 U/L (5-31); Bilirubin Total 0.8 mg/dL (0.0-1.0); Blood Urea Nitrogen 15 mg/dL (9-16); Calcium 9.7 mg/dL (8.4-10.2); Carbon Dioxide 28 mmol/L (22-29); Chloride 105 mmol/L (96-108); Cholesterol 171 mg/dL (<200); Estimated Glomerular Filt Rate > 60; Glucose Fasting 88 mg/dL (60-99); HDL Cholesterol 76 mg/dL (>40); Iron 177 mcg/dL (30-160); LDL Cholesterol Calculated 59 mg/dL (<100); Percent Iron Saturation 56 % (15-50); Potassium 3.8 mmol/L (3.3-5.1); Sodium 138 mmol/L (135-145); Total Iron Binding Capacity 317 mcg/dL (228-428); Total Protein 7.2 g/dL (6.5-8.0); Triglycerides 180 mg/dL (<150); Unsaturated Iron Binding 140 ug/dL
[2024-03-30 13:37] LABS: Vitamin D 25-OH Total 28.9 ng/mL (>30)
== END 2024-03-30 11:50 | disposition home or self-care (01) ==
LOC: HO.LAB 11:49
PROVIDERS: PCP Internal Medicine; Visit Provider Internal Medicine
DX: R14.0 Abdominal distension (gaseous) (principal); E55.9 Vitamin D deficiency, unspecified; D64.9 Anemia, unspecified; D50.9 Iron deficiency anemia, unspecified; E78.5 Hyperlipidemia, unspecified
CPT/HCPCS: 36415; 80053; 80061; 82306; 83540; 85025

== ENCOUNTER → 2024-05-08 10:18 | Outpatient (BNV) | payer OTHER, SELFPAY | PROVIDERS: PCP Internal Medicine; Visit Provider Radiology Diagnostic Radiology | DX: R51.9 Headache, unspecified (principal) | CPT/HCPCS: 70551 ==

== ENCOUNTER 2024-05-08 10:19 | Outpatient (REF) | payer OTHER, SELFPAY ==
--- NOTE | ~2024-05-08 | MR_ITS ---
EXAMINATION: MR BRAIN WITHOUT IV CONTRAST HISTORY: R51.9 - Headache, unspecified TECHNIQUE: Sagittal T1, and axial T1, FLAIR, T2, gradient echo, and diffusion weighted MR images of the brain were obtained. COMPARISON: None FINDINGS: A few scattered punctate periventricular and subcortical white matter hyperintensities are noted on the FLAIR and T2-weighted images. These are nonspecific. Uribe/white differentiation is otherwise normal. There is no mass effect or midline shift. The ventricular system is normal in size and configuration. No intra or extra-axial fluid collections are identified. There are no foci of restricted diffusion. Normal vascular flow voids are noted in the basilar and carotid arteries. The visualized paranasal sinuses are clear. MR/MR head/brain wo con IMPRESSION: Minimal nonspecific white matter hyperintensities. Differential diagnostic considerations include migraine, small vessel ischemic disease, Lyme disease, demyelinating disease, vasculitis. Electronically signed by: Sravan Crook MD 05/11/2024 07:45 AM [facility] [place]
== END 2024-05-08 10:20 | disposition home or self-care (01) ==
LOC: HO.MRI 10:19
PROVIDERS: PCP Internal Medicine; Visit Provider Internal Medicine
DX: R51.9 Headache, unspecified (principal); R41.3 Other amnesia
CPT/HCPCS: 70551

== ENCOUNTER 2024-05-25 08:13 | Emergency (ER) | payer OTHER, SELFPAY ==
--- NOTE | ~2024-05-25 | XR_ITS ---
EXAMINATION: XR CHEST CLINICAL INFORMATION: chest pain COMPARISON: None available. TECHNIQUE: AP portable view of the chest was obtained. FINDINGS: No significant abnormality is noted involving the heart, lungs, mediastinum, bony thorax or soft tissues. XR/XR chest 1V IMPRESSION: No active pulmonary disease. Electronically signed by: Kashmir Coates MD 05/25/2024 09:56 AM [facility] [place]
--- NOTE | 2024-05-25 08:16 | ECG_ITS ---
Test Reason : chest pain Blood Pressure : */* mmHG Vent. Rate : 89 BPM Atrial Rate : 89 BPM P-R Int : 142 ms QRS Dur : 84 ms QT Int : 378 ms P-R-T Axes : 44 23 12 degrees QTcB Int : 459 ms Normal sinus rhythm Normal ECG No previous ECGs available Referred By: Generic ED Physician Electronically Signed By:
[2024-05-25 08:36] VITALS: BP 116/82; PULSE 94; RESP 18; TEMP 36.6; O2SAT 98; BMI 26.9
[2024-05-25 08:58] LABS: Basophils Percent Auto 0.6 % (0-2); Eosinophils Absolute Auto 0.2 X10*3/uL (0.0-0.4); Eosinophils Percent Auto 2.8 % (0-4); Hematocrit 39.7 % (37.0-47.0); Hemoglobin 13.6 g/dl (12.0-16.0); Imm Gran Abs Auto 0.02 X10*3/uL (0.00-0.03); Imm Gran Pct Auto 0.3 % (0.0-0.4); Lymphocytes Absolute Auto 2.4 X10*3/uL (1.2-4.9); Lymphocytes Percent Auto 34.5 % (20-40); MANUAL DIFF FLAG NO; Mean Corpuscular HGB Conc 34.3 g/dl (31.0-35.0); Mean Corpuscular Hemoglobin 30.1 pg (27.0-33.0); Mean Corpuscular Volume 87.8 fL (80.0-98.0); Mean Platelet Volume 10.1 fL (9.4-12.3); Monocytes Absolute Auto 0.5 X10*3/uL (0.1-1.2); Monocytes Percent Auto 7.9 % (2-11); Neutrophils Absolute Auto 3.7 x10*3/uL (2.0-8.3); Neutrophils Percent Auto 53.9 % (45-73); Platelet Count 204 X10*3/uL (160-400); Red Blood Count 4.52 X10*6/uL (4.20-5.50); Red Cell Distribution Width 12.8 % (11.0-16.0); White Blood Count 6.9 X10*3/uL (4.8-10.8)
[2024-05-25 09:05] LABS: IDNOW Serial# 58CA691E; Strep A Nucleic Acid Negative (Negative)
[2024-05-25 09:18] LABS: Alanine Aminotransferase 35 U/L (0-31); Albumin Level 4.3 g/dL (3.5-5.0); Alkaline Phosphatase 75 U/L (39-117); Anion Gap 9 (12-20); Aspartate Amino Transferase 26 U/L (5-31); Bilirubin Total 0.7 mg/dL (0.0-1.0); Blood Urea Nitrogen 11 mg/dL (9-16); Calcium 9.1 mg/dL (8.4-10.2); Carbon Dioxide 23 mmol/L (22-29); Chloride 109 mmol/L (96-108); Creatinine Clr Calc Pharmacy 100.2; Estimated Glomerular Filt Rate > 60; Glucose Random 96 mg/dL (60-115); Lipase 23 U/L (8-78); Magnesium 1.8 mg/dL (1.6-2.6); Potassium 3.3 mmol/L (3.3-5.1); Sodium 138 mmol/L (135-145); Total Protein 7.1 g/dL (6.5-8.0)
[2024-05-25 09:23] LABS: Troponin-I High Sensitivity < 2.7 ng/L (<3.5-17.0)
[2024-05-25 09:24] LABS: HCG Quantitative < 2 mIU/mL
[2024-05-25 09:47] LABS: Influenza A PCR NEGATIVE (Negative); Influenza B PCR NEGATIVE (Negative); Resp Syncy Virus RNA Qual PCR NEGATIVE (Negative); SARS COV2 PCR INHOUSE NEGATIVE (Negative)
[2024-05-25 10:21] LABS: Appearance Urine Clear; Color Urine Yellow; Glucose Urine UA Negative (Negative); Leukocyte Esterase Urine Negative (Negative); Nitrite Urine Negative (Negative); Specific Gravity - Urine 1.015 (1.005-1.025); UMIC TRIGGER UACC YES; UPreg QC Valid YES; Urine Blood Trace (Negative); Urine Ketones Negative (Negative); Urine Protein Negative (Neg-Trace)
[2024-05-25 10:22] LABS: Urine Pregnancy NEGATIVE (NEGATIVE)
[2024-05-25 10:26] LABS: Bacteria Urine None Seen (None Seen); Hyaline Casts Urine 0-2 /LPF (0-2); Squamous Epithelial Cell Urine 0-2 /HPF (0-2); WBC Urine 0-5 /HPF (0-5)
--- NOTE | 2024-05-25 10:45 | ED_ITS ---
HPI - Chest Pain General Chief Complaint: Chest Pain Stated Complaint: Chest tightness, pain R side Time Seen by Provider: 05/25/24 09:41 Source: patient, RN notes reviewed and old records reviewed Mode of arrival: ambulatory History of Present Illness ED Provider: Maggie Gomez PA-C HPI narrative: 43-year-old female with past medical history HLD, bipolar, GERD, anxiety, IBS, presenting to the ED complaining generalized fatigue, myalgias, cough, chest tightness, SOB, nausea, diarrhea x last week. Admits daughter at home with similar symptoms. Also reports increasing stressors at home/anxiety. Denies SI/HI. Denies fever, abdominal pain, vomiting, dysuria/hematuria, travel, suspicious food intake Related Data Previous Rx's ?Medication ?Instructions ?Recorded docusate sodium 100 mg capsule 100 mg PO DAILY #90 caps 03/25/24 loratadine 10 mg tablet 10 mg PO DAILY #90 caps 03/25/24 multivitamin with folic acid 400 1 tab PO DAILY 90 days #90 tabs 03/25/24 mcg tablet (Daily-Zoraida (with folic acid)) nicotine (polacrilex) 4 mg gum 4 mg buccal Q2H 30 days #40 ea 03/25/24 omeprazole 20 mg capsule,delayed 20 mg PO BID #60 caps 03/25/24 release psyllium husk 0.52 gram capsule 0.52 g PO BID 60 days #120 caps 03/25/24 (Fiber (psyllium husk)) sennosides 8.6 mg tablet (Senna 17.2 mg (2 x 8.6 mg) PO BEDTIME 03/25/24 Laxative) PRN constipation #60 caps linaclotide 290 mcg capsule 290 mcg PO QAM #30 caps 03/29/24 (Linzess) epinephrine 0.1 mg/0.1 mL 0.1 mg (0.1 mL) IM ONCE PRN 04/18/24 injection, auto-injector anaphylaxis 1 day #2 ea benztropine 0.5 mg tablet 0.5 mg PO BEDTIME 90 days #90 caps 04/19/24 rosuvastatin 5 mg tablet 5 mg PO DAILY 90 days #90 tabs 04/19/24 ziprasidone HCl 20 mg capsule 20 mg PO TID #270 caps 04/19/24 epinephrine 0.3 mg/0.3 mL 0.3 mg (0.3 mL) IM ONCE PRN 04/20/24 injection, auto-injector (EpiPen anaphylaxis 2 days #2 ea 2-Fausto) cholecalciferol (vitamin D3) 25 25 mcg PO DAILY 90 days #90 caps 05/11/24 mcg (1,000 unit) capsule semaglutide (weight loss) 2.4 2.4 mg (0.75 mL) subcut QWEEK 4 05/14/24 mg/0.75 mL subcutaneous pen weeks #3 mL injector (Wegovy) Lactobacillus rhamnosus GG 10 1 cap PO DAILY 90 days #90 caps 05/18/24 billion cell capsule (Culturelle) bupropion HCl 300 mg 24 hr tablet, 300 mg PO QAM #90 caps 05/18/24 extended release clonazepam 1 mg tablet 1 mg PO Q8H PRN anxiety 30 days 05/18/24 #90 tabs dextroamphetamine-amphetamine 15 15 mg PO BID PRN attention 30 days 05/18/24 mg tablet #60 tabs ibuprofen 600 mg tablet 600 mg PO TID 90 days #270 tabs 05/18/24 oxcarbazepine 300 mg tablet 300 mg PO TID 90 days #270 caps 05/18/24 tirzepatide (weight loss) 2.5 2.5 mg (0.5 mL) subcut QWEEK 4 05/18/24 mg/0.5 mL subcutaneous pen weeks #2 mL injector (Zepbound) Allergies Allergy/AdvReac Type Severity Reaction Status Date / Time neomycin [NEOMYCIN] Allergy Intermediate FUNGAL Verified 03/23/24 13:54 INFECTION,bleeding naproxen [NAPROXEN] Allergy Mild HIVES Verified 03/23/24 13:54 zolpidem [From Ambien] Allergy Weakness Verified 05/25/24 08:43 Review of Systems 2 Review of Systems: Yes all other systems are reviewed and are negative Constitutional: Constitutional: Reports as per [facility] Past Medical History Attestation statement: The following information was validated with the patient. Source: old records reviewed Medical History Transaminitis Dyslipidemia Bipolar 1 disorder Hx of chronic sinusitis ADD (attention deficit disorder) Depression Irritable bowel syndrome with both constipation and diarrhea Anxiety Surgical History Hx of colonoscopy History of incision and drainage Family History Family History Father Hypertension CVD (cardiovascular disease) Mother Diabetes Maternal Grandmother Liver problem Maternal Grandfather No problems noted. Paternal Grandfather Cancer Family/Other FH: mental illness Paternal Aunt Breast cancer Family/Other Colon cancer Brother Liver disease Social History Social History Household Members: Spouse and Children Housing: House Alcohol intake: former Patient Tobacco Use Status: Current everyday Tobacco user Tobacco use type: Cigarette Cigarettes Per Day: 3 e-Cigarette/Vaping Use: Never Used Second Hand Smoke Exposure: No Advance Directives: No Advance Directives Information Provided: Yes service: No Current occupational status: employed Current occupational exposures/hazards: No Cognitive needs: No Hearing needs: No Vision needs: No Physical Exam 2 Vital Signs: Vital Signs: Last Vital Signs Temp 97.9 F 05/25/24 08:36 Pulse 94 05/25/24 08:36 Resp 18 05/25/24 08:36 BP 116/82 05/25/24 08:36 Pulse Ox 98 05/25/24 08:36 O2 Del Method Room Air 05/25/24 08:36 BMI result Body Mass Index 26.9 Const: General: cooperative, healthy appearing and no acute distress O rientation/consciousness: patient oriented x3 Limitations: no limitations HEENT: Head: Yes normal to inspection and Yes atraumatic Ears: hearing grossly normal bilaterally General nose exam: Normal external nose present Face and sinus: Yes normal facial exam Throat: Yes posterior oropharynx normal, Yes tonsils normal, Yes uvula midline, No peritonsillar mass and No uvular edema Eyes: General: appearance normal, both eyes and all related structures EOM: EOMs intact bilaterally Neck: Neck: Yes normal visual inspection and Yes no meningeal signs Resp: Effort & Inspection: normal respiratory effort and no respiratory distress Auscultation: clear to auscultation bilaterally, no crackles and no wheezes Cardio: Rate: regular rate Heart sounds: S1 normal heart sound present and S2 normal heart sound present GI: Inspection: Yes normal to inspection Palpation (GI): Soft to palpation, nontender, no guarding and not rigid : General: Yes no CVA tenderness Back/Spine/Pelvis: Back: no CVA tenderness Skin: Rashes: no rashes Wounds: no wounds Neuro: General: patient oriented x3, tone normal and no meningeal signs C ranial nerves: Yes CN's II-XII intact bilaterally Gait exam (Neuro): Normal gait present Extrem: General: Yes normal to inspection Course Course Course Narrative: -labs reassuring. Troponin negative. COVID/flu/RSV and rapid strep negative XR chest 1V IMPRESSION: No active pulmonary disease. Results discussed with patient including worrisome signs and symptoms and strict return precautions, and when to return to the emergency department. They verbalized understanding and feel safe for discharge at this time. Medical Decision Making Medical Decision Making [facility] Narrative: 43-year-old female with past medical history HLD, bipolar, GERD, anxiety, IBS, presenting to the ED complaining generalized fatigue, myalgias, cough, chest tightness, SOB, nausea, diarrhea x last week. On exam vital signs stable, NAD, nontoxic appearing, lungs CTA, abdomen soft/nontender, no focal deficits, ambulating with steady gait. Concern for viral illness. Symptoms atypical for ACS, PE. Rule out pneumonia. Unlikely appendicitis/diverticulitis Plan: EKG, labs, CXR, viral studies, UA Please refer to course for remaining clinical decision making, interpretation of labs/imaging results, and discussions with consultants and/or family members. Differential Diagnosis Differential Diagnoses: The differential diagnosis associated with the presentation includes As above Admission/Observation Consideration of admission/observation: Escalation of care including admission/observation considered Lab Data MDM Lab Attestation statement: I reviewed the patient's lab results. 05/25/24 08:50 05/25/24 08:50 Labs: Lab Results 05/25/24 05/25/24 05/25/24 Range/Units 08:50 08:51 10:12 WBC 6.9 (4.8-10.8) X10*3/uL RBC 4.52 (4.20-5.50) X10*6/uL Hgb 13.6 (12.0-16.0) g/dl Hct 39.7 (37.0-47.0) % MCV 87.8 (80.0-98.0) fL MCH 30.1 (27.0-33.0) pg MCHC 34.3 (31.0-35.0) g/dl RDW 12.8 (11.0-16.0) % Plt Count 204 (160-400) X10*3/uL MPV 10.1 (9.4-12.3) fL Immature Gran % (Auto) 0.3 (0.0-0.4) % Neut % (Auto) 53.9 (45-73) % Lymph % (Auto) 34.5 (20-40) % [place] % (Auto) 7.9 (2-11) % Eos % (Auto) 2.8 (0-4) % Baso % (Auto) 0.6 (0-2) % Lymph # (Auto) 2.4 (1.2-4.9) X10*3/uL [place] # (Auto) 0.5 (0.1-1.2) X10*3/uL Eos # (Auto) 0.2 (0.0-0.4) X10*3/uL Baso # (Auto) 0.0 (0.0-0.2) X10*3/uL Abs Immat Gran (auto) 0.02 (0.00-0.03) X10*3/uL Absolute Neuts (auto) 3.7 (2.0-8.3) x10*3/uL Absolute Nucleated RBC 0.000 (0.0-0.012) X10*3/uL Nucleated RBC % (auto) 0.0 (0.0-0.2) /100WBC Sodium 138 (135-145) mmol/L Potassium 3.3 (3.3-5.1) mmol/L Chloride 109 H (96-108) mmol/L Carbon Dioxide 23 (22-29) mmol/L Anion Gap 9 L (12-20) BUN 11 (9-16) mg/dL Creatinine 0.70 (0.5-1.4) mg/dL Estim Creat Clear Calc 100.2 Estimated GFR > 60 Random Glucose 96 (60-115) mg/dL Calcium 9.1 D (8.4-10.2) mg/dL Magnesium 1.8 (1.6-2.6) mg/dL Total Bilirubin 0.7 (0.0-1.0) mg/dL AST 26 (5-31) U/L ALT 35 H (0-31) U/L Alkaline Phosphatase 75 (39-117) U/L Troponin I High Sens < 2.7 (<3.5-17.0) ng/L Total Protein 7.1 (6.5-8.0) g/dL Albumin 4.3 (3.5-5.0) g/dL Lipase 23 (8-78) U/L Beta HCG, Quant < 2 mIU/mL Urine Color Yellow Urine Appearance Clear Urine pH 6.0 (5.0-9.0) Ur Specific [place] 1.015 (1.005-1.025) Urine Protein Negative (Neg-Trace) mg/dL Urine Glucose (UA) Negative (Negative) mg/dL Urine Ketones Negative (Negative) mg/dL Urine Blood Trace H (Negative) Urine Nitrite Negative (Negative) Ur Leukocyte Esterase Negative (Negative) Urine RBC 3-5 H (0-2) /HPF Urine WBC 0-5 (0-5) /HPF Ur Squamous Epith Cells 0-2 (0-2) /HPF Urine Bacteria None Seen (None Seen) Hyaline Casts 0-2 (0-2) /LPF Urine Test NEGATIVE (NEGATIVE) Influenza Type A (PCR) NEGATIVE (Negative) Influenza Type B (PCR) NEGATIVE (Negative) RSV RNA Qual (PCR) NEGATIVE (Negative) SARS-CoV-2 RNA (RT-PCR) NEGATIVE (Negative) S. pyogenes GrpA LILY Negative (Negative) Independent Interpretation I performed an independent interpretation of an: EKG (My interpretation EKG normal sinus rhythm rate of 84. MN interval 130. QTC 467. No significant change when compared to prior. No STEMI) and Plain X-Ray Radiology Impression Discussion of test interpretation with radiology: I have reviewed the radiologist's reading. External Record Review External record reviewed: Inpatient record, Office record, Outpatient record, Prior outpatient labs, Prior outpatient radiology, Primary care record and Outside ED record Tests considered The following testing was considered but not selected: As above Prescription Management I considered prescription management with: Other Chronic Conditions Patient?s care impacted by: Other Social Determinants Patient?s care significantly limited by Social Determinants of Health including: Other Social Determinant of Health Discharge Plan Discharge Clinical Impression: Acute viral syndrome, Gastroenteritis Patient Disposition: Home, Self-Care Instructions: Gastroenteritis (DC), Viral Syndrome (ED) Additional Instructions: You likely have a virus. your blood work is reassuring, your chest xray is negative You tested negative for COVID, flu, RSV, and strep throat No antibiotics are indicated at this time Make sure you are staying hydrated. Drink plenty of fluids. Rest Alternate Tylenol and Motrin at home as needed for body aches and fever Follow-up with your doctor. If symptoms persist or worsen return to the emergency department *If you are a child & not tolerating liquid or urinating for more than 6 hours, or fevers are uncontrolled with medications at home, return to the emergency department* Prescriptions: No Action docusate sodium 100 mg capsule 100 mg PO DAILY Qty: 90 3RF loratadine 10 mg tablet 10 mg PO DAILY Qty: 90 6RF multivitamin with folic acid [Daily-Zoraida (with folic acid)] 400 mcg tablet 1 tab PO DAILY 90 Days Qty: 90 3RF nicotine (polacrilex) 4 mg gum 4 mg buccal Q2H 30 Days Qty: 40 11RF omeprazole 20 mg capsule,delayed release(DR/EC) 20 mg PO BID Qty: 60 3RF psyllium husk [Fiber (psyllium husk)] 0.52 gram capsule 0.52 g PO BID 60 Days Qty: 120 3RF sennosides [Senna Laxative] 8.6 mg tablet 17.2 mg PO BEDTIME PRN (Reason: constipation) Qty: 60 4RF Linzess 290 mcg capsule 290 mcg PO QAM Qty: 30 3RF epinephrine 0.1 mg/0.1 mL auto-injector 0.1 mg IM ONCE PRN (Reason: anaphylaxis) 1 Days Qty: 2 1RF benztropine 0.5 mg tablet 0.5 mg PO BEDTIME 90 Days Qty: 90 0RF ziprasidone HCl 20 mg capsule 20 mg PO TID Qty: 270 0RF rosuvastatin 5 mg tablet 5 mg PO DAILY 90 Days Qty: 90 3RF epinephrine [EpiPen 2-Fausto] 0.3 mg/0.3 mL auto-injector 0.3 mg IM ONCE PRN (Reason: anaphylaxis) 2 Days Qty: 2 0RF Rx Instructions: for 2 doses cholecalciferol (vitamin D3) 25 mcg (1,000 unit) capsule 25 mcg PO DAILY 90 Days Qty: 90 1RF Wegovy 2.4 mg/0.75 mL pen injector 2.4 mg subcut QWEEK 28 Days Qty: 3 6RF Zepbound 2.5 mg/0.5 mL pen injector 2.5 mg subcut QWEEK 28 Days Qty: 2 0RF Rx Instructions: for 4 weeks ibuprofen 600 mg tablet 600 mg PO TID 90 Days Qty: 270 3RF oxcarbazepine 300 mg tablet 300 mg PO TID 90 Days Qty: 270 0RF Culturelle 10 billion cell capsule 1 cap PO DAILY 90 Days Qty: 90 1RF bupropion HCl 300 mg tablet extended release 24 hr 300 mg PO QAM Qty: 90 3RF dextroamphetamine-amphetamine 15 mg tablet 15 mg PO BID PRN (Reason: attention) 30 Days Qty: 60 0RF clonazepam 1 mg tablet 1 mg PO Q8H PRN (Reason: anxiety) 30 Days Qty: 90 0RF Referrals: Allyson Kaur MD [Primary Care Provider] - 5 days Stand Alone Forms: Work/School Release Print Language: Yoruba
[2024-05-25 11:02] VITALS: BP 108/70; PULSE 80; RESP 18; TEMP 36.4; O2SAT 96
== END 2024-05-25 11:03 | disposition home or self-care (01) ==
PROVIDERS: Physician Assistant; Emergency Provider Emergency Medicine Emergency Medical Services; PCP Internal Medicine
DX: B34.9 Viral infection, unspecified (principal); K52.9 Noninfective gastroenteritis and colitis, unspecified; R05.9 Cough, unspecified; R06.02 Shortness of breath; M79.10 Myalgia, unspecified site; Z03.818 Encounter for observation for suspected exposure to other biological agents ruled out; F17.210 Nicotine dependence, cigarettes, uncomplicated; K21.9 Gastro-esophageal reflux disease without esophagitis
CPT/HCPCS: 0241U; 71045; 80053; 81001; 81025; 83690; 83735; 84484; 84702; 85025; 87651; 93005; 99283

== ENCOUNTER → 2024-05-25 08:44 | Outpatient (BNV) | payer OTHER, SELFPAY | PROVIDERS: PCP Internal Medicine; Visit Provider Radiology Diagnostic Radiology | DX: R07.9 Chest pain, unspecified (principal) | CPT/HCPCS: 71045 ==

== ENCOUNTER 2024-06-23 15:59 | Outpatient (REF) | payer OTHER, SELFPAY ==
[2024-06-23 16:25] LABS: MANUAL DIFF FLAG NO
[2024-06-23 17:14] LABS: Basophils Percent Auto 0.6 % (0-2); Eosinophils Absolute Auto 0.2 X10*3/uL (0.0-0.4); Eosinophils Percent Auto 4.6 % (0-4); Hematocrit 39.8 % (37.0-47.0); Imm Gran Abs Auto 0.02 X10*3/uL (0.00-0.03); Imm Gran Pct Auto 0.4 % (0.0-0.4); Lymphocytes Absolute Auto 1.9 X10*3/uL (1.2-4.9); Mean Corpuscular HGB Conc 32.7 g/dl (31.0-35.0); Mean Corpuscular Hemoglobin 29.4 pg (27.0-33.0); Mean Platelet Volume 11.2 fL (9.4-12.3); Monocytes Absolute Auto 0.6 X10*3/uL (0.1-1.2); Monocytes Percent Auto 12.1 % (2-11); Neutrophils Absolute Auto 2.1 x10*3/uL (2.0-8.3); Neutrophils Percent Auto 43.3 % (45-73); Platelet Count 220 X10*3/uL (160-400); Red Blood Count 4.42 X10*6/uL (4.20-5.50); Red Cell Distribution Width 12.3 % (11.0-16.0)
[2024-06-23 17:28] LABS: Influenza A PCR NEGATIVE (Negative); Influenza B PCR NEGATIVE (Negative); Resp Syncy Virus RNA Qual PCR NEGATIVE (Negative); SARS COV2 PCR INHOUSE NEGATIVE (Negative)
[2024-06-23 17:40] LABS: Iron 32 mcg/dL (30-160); Percent Iron Saturation 13 % (15-50); Total Iron Binding Capacity 247 mcg/dL (228-428); Unsaturated Iron Binding 215 ug/dL
[2024-06-23 17:55] LABS: Vitamin D 25-OH Total 34.2 ng/mL (>30)
[2024-06-23 17:56] LABS: Ferritin 98 ng/mL (10-250)
[2024-06-23 18:12] LABS: Folate 12.4 ng/mL (> or = 4.0); Vitamin B12 523 pg/mL (200-900)
[2024-06-24 08:38] LABS: HBS Num1 43.67 mIU/mL (0-7.99); HBsAGNum1 0.37 S/CO (0.00-0.99); Hepatitis B Surface Antigen Negative (Negative); ~Hepatitis B Surface Antibody REACTIVE (Nonreactive)
== END 2024-06-23 16:00 | disposition home or self-care (01) ==
LOC: HO.LAB 15:59
PROVIDERS: Internal Medicine Gastroenterology; PCP Internal Medicine; Visit Provider Internal Medicine
DX: D50.9 Iron deficiency anemia, unspecified (principal); R79.89 Other specified abnormal findings of blood chemistry; E55.9 Vitamin D deficiency, unspecified; D64.9 Anemia, unspecified; R09.89 Other specified symptoms and signs involving the circulatory and respiratory systems
CPT/HCPCS: 0241U; 36415; 82306; 82607; 82728; 82746; 83540; 85025; 85027; 86706; 87340

== ENCOUNTER 2024-07-02 15:05 | Outpatient (AMB) | payer OTHER, SELFPAY ==
[2024-07-02 15:07] VITALS: BP 102/68; PULSE 90; O2SAT 98; BMI 26.5
--- NOTE | 2024-07-02 15:07 | MHC.PC.OV ---
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 Accompanied by: Self / Same As Patient Allergies neomycin [NEOMYCIN] Allergy (Intermediate, Verified 07/02/24 15:12) FUNGAL INFECTION,bleeding naproxen [NAPROXEN] Allergy (Mild, Verified 07/02/24 15:12) HIVES zolpidem [From Ambien] Allergy (Verified 07/02/24 15:12) Weakness Medication List - Last Reconciled 07/02/24 by Awilda Rothman PA-C benztropine 0.5 mg PO BEDTIME 90 days bupropion HCl XL 300 mg PO QAM cholecalciferol (vitamin D3) 25 mcg PO DAILY 90 days clonazepam 1 mg PO Q8H PRN 30 days dextroamphetamine-amphetamine 15 mg 15 mg PO BID PRN 30 days docusate sodium 100 mg PO DAILY epinephrine (EpiPen 2-Fausto) 0.3 mg (0.3 mL) IM ONCE PRN 2 days epinephrine 0.1 mg (0.1 mL) IM ONCE PRN 1 day ibuprofen 600 mg PO TID 90 days Lactobacillus rhamnosus GG (Culturelle) 1 cap PO DAILY 90 days linaclotide (Linzess) 290 mcg PO QAM loratadine 10 mg PO DAILY multivitamin with folic acid 400 mcg (Daily-Zoraida (with folic acid)) 1 tab PO DAILY 90 days nicotine (polacrilex) 4 mg buccal Q2H 30 days omeprazole 20 mg PO BID oxcarbazepine 300 mg PO TID 90 days psyllium husk (Fiber (psyllium husk)) 0.52 grams PO BID 60 days rosuvastatin 5 mg PO DAILY 90 days semaglutide (weight loss) (Wegovy) 2.4 mg (0.75 mL) subcut QWEEK 4 weeks sennosides (Senna Laxative) 17.2 mg (2 x 8.6 mg) PO BEDTIME PRN tirzepatide (weight loss) (Zepbound) 2.5 mg (0.5 mL) subcut QWEEK 4 weeks ziprasidone HCl 20 mg PO TID Tobacco use date assessed: 07/02/24 Dental Screening Dental Screen Date: 07/02/24 Did you have a dental visit in the last 12 months?: Yes Did you have a dental problem in the last 6 months where you did not have access to dental care?: No Was dental information given to patient?: Patient has dentist HPI sore throat HPI Details 43-year-old female with past medical history of IBS, anxiety, GERD, chronic fatigue syndrome, bipolar 1 last seen 02/2024 coming in for acute problem. Presenting with concerns related to continuous fatigue and follow-up on previous blood test results. Recently experienced illness in May 2023, tested for RSV and COVID-19, results negative. Blood work from May showed low neutrophil counts, elevated eosinophils. No anomalies in white and red blood cells. Reports persistent fatigue attributed to potential low iron levels, no anemia detected currently. Symptoms indicating potential menopausal onset, including decreased libido, night sweats, and premenopausal anxiety given family history. [facility] Medical History Transaminitis Dyslipidemia Bipolar 1 disorder Hx of chronic sinusitis ADD (attention deficit disorder) Depression Irritable bowel syndrome with both constipation and diarrhea Anxiety Surgical History Hx of colonoscopy History of incision and drainage Family History Father Hypertension CVD (cardiovascular disease) Mother Diabetes Maternal Grandmother Liver problem Maternal Grandfather No problems noted. Paternal Grandfather Cancer Family/Other FH: mental illness Paternal Aunt Breast cancer Family/Other Colon cancer Brother Liver disease Social History Household Members: Spouse and Children Housing: House Alcohol intake: former Patient Tobacco Use Status: Current everyday Tobacco user Tobacco use type: Cigarette Cigarettes Per Day: 3 e-Cigarette/Vaping Use: Never Used Second Hand Smoke Exposure: No service: No Current occupational status: employed Current occupational exposures/hazards: No Cognitive needs: No Hearing needs: No Vision needs: No Female Reproductive History Menstrual Age of Menarche: 10 Questionnaire PHQ-9 Over the last 2 weeks, how often have you been bothered by any of the following problems? 1. Little interest or pleasure in doing things: not at all 2. Feeling down, depressed, or hopeless: not at all 3. Trouble falling or staying asleep, or sleeping too much: not at all 4. Feeling tired or having little energy: not at all 5. Poor appetite or overeating: not at all 6. Feeling bad about yourself - or that you are a failure or have let yourself or your family down: not at all 7. Trouble concentrating on things, such as reading the newspaper or watching television: not at all 8. Moving or speaking so slowly that other people could have noticed. Or the opposite - being so fidgety or restless that you have been moving around a lot more than usual: not at all 9. Thoughts that you would be better off or of hurting yourself in some way: not at all Total score: 0 Depression Screening Interpretation: Negative Depression Screening Done: Yes 47554 - PHQ-9 Billing: Yes Source: Developed by Drs. Sravan Ruffin, Janny Graham, Rene Giang and colleagues, with an educational rancho from [employer]. Thrive Questionnaire Date Thrive assessed: 07/02/24 I am a: Patient What is your living situation today?: I have a steady place to live Within the past 12 months, did the food you bought not last and you didn't have the money to get more?: Never true Within the past 12 months, did you worry whether your food would run out before you got money to buy more?: Never true Do you have trouble paying for medicines?: No Do you have trouble getting transportation to medical appointments?: No Do you have trouble paying your heating and electricity bill?: No Do you have trouble taking care of your child, family member or friend?: No Do you have trouble with day-to-day activities such as bathing, preparing meals, shopping, managing finances, etc.?: No Are you currently unemployed and looking for a job?: No Are you interested in more education?: No Please select the resources that you would like help with: None Currently or been in a relationship where the following occur: No concerns reported THRIVE Score: 0 AUDIT C Alcohol Use Questionnaire (AUDIT-C) 1. How often do you have a drink containing alcohol?: Never 3. How often do you have six or more drinks on one occasion?: Never Total Score: 0 Score Reviewed/Action Taken: No OKSANA-7 AMB Questionnaire OKSANA-7 Date OKSANA - 7 assessed: 07/02/24 Feeling nervous, anxious, or on edge: 0 = Not at all Not being able to stop or control worryin = Not at all Worrying too much about different things: 0 = Not at all Trouble relaxin = Not at all Being so restless that it is hard to sit still: 0 = Not at all Becoming easily annoyed or irritable: 0 = Not at all Feeling afraid as if something awful might happen: 0 = Not at all Total OKSANA-7 score (0-4 normal; 5-9 mild; 10-14 moderate; 15-21 severe): 0 Source: Developed by Drs. Sravan Ruffin, Janny Graham, Rene Giang and colleagues, with an educational rancho from [employer]. Review of Systems Const Denies body aches, Denies chills, Reports fatigue, Denies fever(s), Denies headache(s) and Denies poor appetite Eyes Reports no additional complaints ENT Denies dysphagia, Denies dizziness, Denies headache(s) and Denies odynophagia Card Denies chest pain, Denies lightheadedness and Denies dyspnea Resp Denies cough and Denies dyspnea GI Denies abdominal pain, Denies constipation, Denies dysphagia, Denies diarrhea, Denies nausea, Denies odynophagia and Denies vomiting Reports no additional complaints Musc Reports no additional complaints and Denies abnormal gait Skin/Breast Reports system reviewed and no additional complaints, except as documented Neuro Denies abnormal gait, Denies dizziness and Denies headache(s) Psych Reports no additional complaints Endo Reports fatigue Physical exam (Primary Care) Vital Signs: Oxygen Delivery Method Room Air 07/02/24 15:07 BMI result Body Mass Index 26.5 Tobacco/Smoking Status: Tobacco use Status Tobacco use date assessed 09/25/23 03/23/24 13:39 Patient Tobacco Use Status Current everyday Tobacco 03/23/24 13:39 Tobacco use type Cigarette 03/23/24 13:39 e-Cigarette/Vaping Use Never Used 03/23/24 13:39 Depression Screening Interpretation: Negative Thrive Assessment: Date of Thrive Assessment Date Thrive assessed 09/25/23 03/23/24 13:39 Currently or been in a relationship where the following occur: No concerns reported Const General: cooperative, healthy appearing, comfortable and no acute distress Orientation/consciousness: patient oriented x3 HENMT Head: Yes normocephalic Ears: hearing grossly normal bilaterally General nose exam: Normal external nose present Eyes General: appearance normal, both eyes and all related structures Conjunctivae: conjunctivae normal Neck Neck: Yes full ROM and Yes no lymphadenopathy Resp Effort & Inspection: normal respiratory effort Auscultation: clear to auscultation bilaterally, no crackles, no rales, no rhonchi and no wheezes Cardio Rate: regular rate Rhythm: regular rhythm Skin General skin exam: no rashes or lesions noted Neuro General: patient oriented x3 Gait exam (Neuro): Normal gait present Extrem General: Yes normal to inspection, Yes full ROM and No edema Psych Affect: normal affect Attitude: cooperative Insight: Good insight present (Psych) Judgement: Good judgement present (Psych) Coding Level of Care Code Est Pt Level 3 (89672) Diagnoses Iron deficiency anemia D50.9 Overweight (BMI 25.0-29.9) E66.3 Additional Codes PHQ-9 - 01865 - PHQ-9 Billing: Yes ([id number]) Assessment & Plan Assessment & Plan (1) Iron deficiency anemia: Code(s): D50.9 - Iron deficiency anemia, unspecified Category: Medical Plan: Patient having low normal iron on last blood work. Advised patient to begin taking iron supplementation once daily and increase water and fiber intake to prevent constipation. Plan to repeat iron labs in 2 months prior to next visit. (2) Overweight (BMI 25.0-29.9): Code(s): E66.3 - Overweight Category: Medical Plan: Healthy diet and regular exercise is encouraged. Plan The patient is advised to begin iron supplementation to improve low-normal iron levels, with instructions to manage possible constipation associated with this treatment. Dietary adjustments, including enhanced intake of leafy greens and proper hydration, are recommended. Follow-up lab tests are scheduled to evaluate the impact of supplementation on iron levels. Consideration for further assessment of menopausal symptoms is advised in coordination with a gynecological consultation. Continuation with current ADHD management is noted, and commendation extended for cessation of tobacco use. This note was constructed using voice recognition software. 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 Total time spent caring for the patient today was 20 minutes. This includes time spent before the visit reviewing the chart, time spent during the visit, and time spent after the visit and documentation. Patient was informed and verbally consented to the use of an ambient scribe for clinic note documentation during this visit. Medications: New ferrous sulfate (Feosol) 325 mg PO DAILY 90 tabs 2RF D64.9 - Anemia, unspecified
== END 2024-07-02 15:43 | disposition home or self-care (01) ==
PROVIDERS: PCP Internal Medicine
DX: D50.9 Iron deficiency anemia, unspecified (principal); E66.3 Overweight

== ENCOUNTER → 2024-07-02 15:05 | Outpatient (BNVA) | payer OTHER, SELFPAY | PROVIDERS: PCP Internal Medicine | DX: D50.9 Iron deficiency anemia, unspecified (principal); E66.3 Overweight; Z68.26 Body mass index [BMI] 26.0-26.9, adult; Z71.3 Dietary counseling and surveillance | CPT/HCPCS: 96127; 99212 ==

== ENCOUNTER 2024-09-02 16:33 | Outpatient (REF) | payer OTHER, SELFPAY ==
[2024-09-02 17:55] LABS: HCG Quantitative 1916 mIU/mL
== END 2024-09-02 16:34 | disposition home or self-care (01) ==
LOC: HO.LAB 16:33
PROVIDERS: PCP Internal Medicine; Visit Provider Internal Medicine
DX: N92.6 Irregular menstruation, unspecified (principal); Z3A.01 Less than 8 weeks gestation of pregnancy
CPT/HCPCS: 36415; 84702

== ENCOUNTER 2024-09-23 13:35 | Outpatient (AMB) | payer OTHER, SELFPAY ==
[2024-09-23 13:38] VITALS: BP 110/68; BMI 25.1
--- NOTE | 2024-09-23 13:38 | A.OFFPC_ITS ---
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 Accompanied by: Self / Same As Patient Allergies neomycin [NEOMYCIN] Allergy (Intermediate, Verified 09/23/24 13:42) FUNGAL INFECTION,bleeding naproxen [NAPROXEN] Allergy (Mild, Verified 09/23/24 13:42) HIVES zolpidem [From Ambien] Allergy (Verified 09/23/24 13:42) Weakness Medication List - Last Reconciled 09/23/24 by Allyson Rahman MD benztropine 0.5 mg PO BEDTIME 90 days bupropion HCl XL 300 mg PO QAM cholecalciferol (vitamin D3) 25 mcg PO DAILY 90 days clonazepam 1 mg PO Q8H PRN 30 days dextroamphetamine-amphetamine 15 mg 15 mg PO BID PRN 30 days docusate sodium 100 mg PO DAILY epinephrine (EpiPen 2-Fausto) 0.3 mg (0.3 mL) IM ONCE PRN 2 days ferrous sulfate (Feosol) 325 mg PO DAILY Lactobacillus rhamnosus GG (Culturelle) 1 cap PO DAILY 90 days linaclotide (Linzess) 290 mcg PO QAM loratadine 10 mg PO DAILY multivitamin with folic acid 400 mcg (Daily-Zoraida (with folic acid)) 1 tab PO DAILY 90 days nicotine (polacrilex) 4 mg buccal Q2H 30 days omeprazole 20 mg PO BID oxcarbazepine 300 mg PO TID 90 days psyllium husk (Fiber (psyllium husk)) 0.52 grams PO BID 60 days rosuvastatin 5 mg PO DAILY 90 days sennosides (Senna Laxative) 17.2 mg (2 x 8.6 mg) PO BEDTIME PRN ziprasidone HCl 20 mg PO BID 90 days Tobacco use date assessed: 07/02/24 Dental Screening Dental Screen Date: 07/02/24 HPI HPI Comments History of Present Illness Details The patient is a 44-year-old female presenting with a follow-up for bipolar depression, , and medication management. She has a stable history of bipolar depression and is currently experiencing no acute issues. In the first trimester of , she is scheduled to see her military cook next week for the initial visit. The patient reports mild difficulty with focus due to her ADHD, previously managed with Adderall, which has been discontinued because of -related concerns. She is under psychiatric care for alternative management strategies. Her generalized anxiety disorder is managed with clonazepam, which she is aware is a controlled substance and has potential risks during . The patient has a history of vitamin D deficiency and anemia, requiring ongoing supplementation with ferrous sulfate. Constipation is a noted concern, likely related to her . [facility] Medical History Transaminitis Dyslipidemia Bipolar 1 disorder Hx of chronic sinusitis ADD (attention deficit disorder) Depression Irritable bowel syndrome with both constipation and diarrhea Anxiety Surgical History Hx of colonoscopy History of incision and drainage Family History Father Hypertension CVD (cardiovascular disease) Mother Diabetes Maternal Grandmother Liver problem Maternal Grandfather No problems noted. Paternal Grandfather Cancer Family/Other FH: mental illness Paternal Aunt Breast cancer Family/Other Colon cancer Brother Liver disease Social History Household Members: Spouse and Children Housing: House Alcohol intake: former Patient Tobacco Use Status: Former Tobacco user Tobacco use type: Cigarette Cigarettes Per Day: 3 e-Cigarette/Vaping Use: Never Used Second Hand Smoke Exposure: No service: No Current occupational status: employed Current occupational exposures/hazards: No Cognitive needs: No Hearing needs: No Vision needs: No Female Reproductive History Menstrual Age of Menarche: 10 Questionnaire Thrive Questionnaire Date Thrive assessed: 07/02/24 OKSANA-7 AMB Questionnaire OKSANA-7 Date OKSANA - 7 assessed: 07/02/24 Source: Developed by Drs. Sravan Ruffin, Janny Graham, Rene Giang and colleagues, with an educational rancho from [employer]. Review of Systems Const All systems reviewed & are unremarkable except as noted in HPI and below Card Denies chest pain at rest, Denies chest pain with activity, Denies edema, Denies irregular heart rhythm, Denies claudication, Denies dyspnea, Denies dyspnea on exertion, Denies orthopnea, Denies paroxysmal nocturnal dyspnea and Denies slow heart rate Resp Denies cough, Denies dyspnea and Denies dyspnea on exertion GI Denies abdominal pain, Denies change in bowel habits, Denies excessive flatus, Denies nausea and Denies vomiting Denies urinary incontinence, Denies urinary hesitancy and Denies urinary urgency Musc Denies abnormal gait, Denies atrophy, Denies deformity and Denies limited range of motion Skin/Breast Denies bleeding lesions, Denies changing lesions and Denies rash Neuro Denies abnormal gait, Denies behavioral changes and Denies lack of coordination Psych Denies behavioral changes Physical exam (Primary Care) Vital Signs: Last Vital Signs BP 110/68 09/23/24 13:38 BMI result Body Mass Index 25.1 Tobacco/Smoking Status: Tobacco use Status Tobacco use date assessed 07/02/24 09/23/24 13:43 Patient Tobacco Use Status Former Tobacco user 09/23/24 13:43 Tobacco use type Cigarette 09/23/24 13:43 e-Cigarette/Vaping Use Never Used 09/23/24 13:43 Thrive Assessment: Date of Thrive Assessment Date Thrive assessed 07/02/24 09/23/24 13:43 Resp Effort & Inspection: normal respiratory effort Auscultation: clear to auscultation bilaterally Cardio Jugular venous distension: no JVD Rate: regular rate Rhythm: regular rhythm Heart sounds: S1 normal heart sound present and S2 normal heart sound present Extrem General: Yes full ROM Coding Level of Care Code Est Pt Level 4 (76184) Complex EM visit Add On G2211 Diagnoses Chronic constipation K59.09 Iron deficiency anemia D50.9 Bipolar 1 disorder F31.9 Gastroesophageal reflux disease, unspecified whether esophagitis present K21.9 Esophagitis presence: esophagitis presence not specified Anxiety F41.9 Time Spent (min) 21 Assessment & Plan Assessment & Plan (1) Chronic constipation: Code(s): K59.09 - Other constipation Category: Medical (2) Iron deficiency anemia: Code(s): D50.9 - Iron deficiency anemia, unspecified Category: Medical (3) Bipolar 1 disorder: Code(s): F31.9 - Bipolar disorder, unspecified Category: Medical (4) GERD (gastroesophageal reflux disease): Code(s): K21.9 - Gastro-esophageal reflux disease without esophagitis Category: Medical Qualifiers: Esophagitis presence: esophagitis presence not specified Qualified Code(s): K21.9 - Gastro-esophageal reflux disease without esophagitis (5) Anxiety: Comment: very anxious, Hx short term memory loss 2010 Code(s): F41.9 - Anxiety disorder, unspecified Category: Medical Plan The patient's bipolar depression will be managed with ongoing psychiatric care, especially since Adderall has been discontinued due to risks. Clonazepam will be continued cautiously for anxiety, with a focus on minimizing risks during . Anemia will be treated with ferrous sulfate supplementation, while vitamin D deficiency will continue to be managed with supplements. Constipation will be addressed through dietary changes and potential stool softeners. She is scheduled for her initial visit with her military cook next week. Medications: On Hold sennosides (Senna Laxative) Hold Comment: Doctor's Order 17.2 mg (2 x 8.6 mg) PO BEDTIME PRN 60 caps 4RF constipation benztropine Hold Comment: Doctor's Order 0.5 mg PO BEDTIME 90 days 90 caps 0RF F41.9 - Anxiety disorder, unspecified
== END 2024-09-23 13:58 | disposition home or self-care (01) ==
LOC: HO.HMCH 13:36
PROVIDERS: PCP Internal Medicine; Visit Provider Internal Medicine
DX: K59.09 Other constipation (principal); D50.9 Iron deficiency anemia, unspecified; F31.9 Bipolar disorder, unspecified; K21.9 Gastro-esophageal reflux disease without esophagitis; F41.9 Anxiety disorder, unspecified

== ENCOUNTER → 2024-09-23 13:35 | Outpatient (BNVA) | payer OTHER, SELFPAY | PROVIDERS: PCP Internal Medicine; Visit Provider Internal Medicine | DX: K59.09 Other constipation (principal); D50.9 Iron deficiency anemia, unspecified; F31.9 Bipolar disorder, unspecified; K21.9 Gastro-esophageal reflux disease without esophagitis; F41.9 Anxiety disorder, unspecified; E55.9 Vitamin D deficiency, unspecified | CPT/HCPCS: 99212 ==

== ENCOUNTER 2024-10-13 11:26 | Emergency (ER) | payer OTHER, SELFPAY ==
--- NOTE | ~2024-10-13 | US_ITS ---
EXAMINATION: US OBSTETRICAL ULTRASOUND CLINICAL INFORMATION: Right-sided pelvic pain, positive and increasing beta hCG COMPARISON: November 01, 2022 LMP: 08/04/2024. Gestational age by maternal dates is 10 weeks 0 days. Estimated date of delivery by maternal dates is May 11, 2025. TECHNIQUE: Transabdominal and transvaginal grayscale and color Doppler imaging performed of the pelvis FINDINGS: Intrauterine gestational sac is present with a mean sac diameter of 3.9 cm. There is a visible yolk sac. There is also faint curvilinear debris or septations within the gestational sac. No pole was documented. MATERNAL ADNEXA: The right maternal ovary measures 2.6 x 1.6 x 1.8 cm with 11 mm cyst. The left maternal ovary is not visualized There is no significant maternal adnexal mass. No maternal pelvic ascites. US/US OB pelvic and transvaginal IMPRESSION: Single intrauterine gestation sac with a mean diameter of 3.9 cm with no visible fetus and thin internal septations is concerning for an anembryonic . Electronically signed by: Eddie Jeong MD 10/13/2024 01:38 PM EDT
--- NOTE | ~2024-10-13 | US_ITS ---
EXAMINATION: US TRIPLEX LOWER EXTREMITY, RIGHT CLINICAL INFORMATION: Right lower extremity pain COMPARISON: None available. TECHNIQUE: Color-flow triplex imaging with spectral analysis and compression Doppler were performed on the right lower extremity. FINDINGS: Respiratory variation, normal compression and augmented flow are noted throughout the right lower extremity. The visualized common femoral vein, superficial femoral vein, profunda femoral vein, popliteal vein and midcalf peroneal and posterior tibial venous segments show no evidence of deep venous thrombosis. US/US venous duplex LE RT IMPRESSION: No evidence of deep venous thrombosis involving the right lower extremity. Electronically signed by: Eddie Jeong MD 10/13/2024 01:28 PM EDT
[2024-10-13 11:43] VITALS: BP 121/76; PULSE 100; RESP 16; TEMP 36.3; O2SAT 96; BMI 25.6
--- NOTE | 2024-10-13 11:45 | ED.GENADULT ---
HPI - General Adult General Chief complaint: Abdominal Pain Stated complaint: Numbness On Right Hand Side, Burning Sensation Time Seen by Provider: 10/13/24 15:58 Source: patient, RN notes reviewed and old records reviewed Mode of arrival: ambulatory Limitations: no limitations History of Present Illness ED Provider: Joey HPI narrative: 44-year-old female presents for evaluation of right lower abdominal pain. She reports that she is about 10 weeks She states that she had an outpatient ultrasound at her OB office yesterday which showed an intrauterine gestation but ?no heartbeat. ? Today she is having lower abdominal pain which is new. She denies any vaginal bleeding or discharge She also endorses occasional right arm and right leg tingling. She has muscle spasms in her right calf which she is concerned about Denies any fevers, chills She reports that she follows with [facility] and [facility] in [place] Related Data Previous Rx's ?Medication ?Instructions ?Recorded loratadine 10 mg tablet 10 mg PO DAILY #90 caps 03/25/24 sennosides 8.6 mg tablet (Senna 17.2 mg (2 x 8.6 mg) PO BEDTIME 03/25/24 Laxative) PRN constipation #60 caps Held on 09/23/24. Instructions: Doctor's Order linaclotide 290 mcg capsule 290 mcg PO QAM #30 caps 03/29/24 (Linzess) rosuvastatin 5 mg tablet 5 mg PO DAILY 90 days #90 tabs 04/19/24 Held on 09/07/24. Instructions: Doctor's Order epinephrine 0.3 mg/0.3 mL 0.3 mg (0.3 mL) IM ONCE PRN 04/20/24 injection, auto-injector (EpiPen anaphylaxis 2 days #2 ea 2-Fausto) ferrous sulfate 325 mg (65 mg 325 mg PO DAILY #90 tabs 07/02/24 iron) tablet (Feosol) ziprasidone HCl 20 mg capsule 20 mg PO BID 90 days #180 caps 08/03/24 dextroamphetamine-amphetamine 15 15 mg PO BID PRN attention 30 days 08/09/24 mg tablet #60 tabs Held on 09/07/24. Instructions: Doctor's Order multivitamin with folic acid 400 1 tab PO DAILY 90 days #90 tabs 09/06/24 mcg tablet (Daily-Zoraida (with folic acid)) benztropine 0.5 mg tablet 0.5 mg PO BEDTIME 90 days #90 caps 09/07/24 Held on 09/23/24. Instructions: Doctor's Order omeprazole 20 mg capsule,delayed 20 mg PO BID #60 caps 09/07/24 release oxcarbazepine 300 mg tablet 300 mg PO TID 90 days #270 caps 09/07/24 psyllium husk 0.52 gram capsule 0.52 g PO BID 60 days #120 caps 09/07/24 (Fiber (psyllium husk)) cholecalciferol (vitamin D3) 25 25 mcg PO DAILY 90 days #90 caps 09/08/24 mcg (1,000 unit) capsule nicotine (polacrilex) 4 mg gum 4 mg buccal Q2H 30 days #40 ea 09/12/24 bupropion HCl 300 mg 24 hr tablet, 300 mg PO QAM #90 caps 10/06/24 extended release clonazepam 1 mg tablet 1 mg PO Q8H PRN anxiety 30 days 10/06/24 #90 tabs docusate sodium 100 mg capsule 100 mg PO DAILY #90 caps 10/08/24 Lactobacillus rhamnosus GG 10 1 cap PO DAILY 90 days #90 caps 10/09/24 billion cell capsule (Culturelle) Allergies Allergy/AdvReac Type Severity Reaction Status Date / Time neomycin (NEOMYCIN) Allergy Intermediate FUNGAL Verified 10/13/24 11:48 INFECTION,bleeding naproxen (NAPROXEN) Allergy Mild HIVES Verified 10/13/24 11:48 zolpidem (From Ambien) Allergy Weakness Verified 10/13/24 11:48 Review of Systems Constitutional: Constitutional: Denies anorexia, Denies chills and Denies fever(s) Eyes: Eyes: Denies blurry vision ENT: Denies dizziness and Denies dry mouth Cardiovascular: Cardiovascular: Denies chest pain and Denies dyspnea on exertion Respiratory: Respiratory: Denies cough and Denies dyspnea on exertion Gastrointestinal: Gastrointestinal: Reports abdominal pain, Denies nausea and Denies vomiting Musculoskeletal: Musculoskeletal: Denies back pain, Reports numbness and Reports tingling Neurologic: Denies dizziness, Reports numbness and Reports tingling Psychiatric: Psychiatric: Reports anxiety PMFSH Past Medical History Medical History Transaminitis Dyslipidemia Bipolar 1 disorder Hx of chronic sinusitis ADD (attention deficit disorder) Depression Irritable bowel syndrome with both constipation and diarrhea Anxiety Surgical History Hx of colonoscopy History of incision and drainage Family History Family History Father Hypertension CVD (cardiovascular disease) Mother Diabetes Maternal Grandmother Liver problem Maternal Grandfather No problems noted. Paternal Grandfather Cancer Family/Other FH: mental illness Paternal Aunt Breast cancer Family/Other Colon cancer Brother Liver disease Social History Social History Household Members: Spouse and Children Housing: House Alcohol intake: former Patient Tobacco Use Status: Former Tobacco user Tobacco use type: Cigarette Cigarettes Per Day: 3 e-Cigarette/Vaping Use: Never Used Second Hand Smoke Exposure: No service: No Current occupational status: employed Current occupational exposures/hazards: No Cognitive needs: No Hearing needs: No Vision needs: No Physical Exam ED Vital Signs: Vital Signs - 24 hr 10/13/24 11:43 10/13/24 15:50 10/13/24 16:04 Temperature 97.4 F 98.0 F Pulse Rate 100 95 95 Respiratory Rate 16 16 16 Blood Pressure 121/76 113/86 113/86 Pulse Oximetry 96 98 98 Oxygen Delivery Method Room Air Room Air Room Air BMI result Body Mass Index 25.6 Const General: healthy appearing, comfortable, no acute distress, alert and awake Nutritional Appearance: well nourished Orientation/consciousness: patient oriented x3 HENMT Head: Yes normocephalic and Yes atraumatic Eyes Eyelids: Yes eyelids normal Conjunctivae: conjunctivae normal Sclerae: sclerae normal Corneas: corneas normal Pupils: Equal, round and reactive pupils present EOM: EOMs intact bilaterally Neck Neck: Yes full ROM Resp Effort & Inspection: normal respiratory effort, able to speak in complete sentences and not labored Cardio Rate: regular rate Rhythm: regular rhythm GI Inspection: No distended Palpation (GI): Soft to palpation, not firm, Tenderness to palpation present (GI) in the RLQ and suprapubicly; not in the LLQ, not in the LUQ and not in the RUQ, no guarding and not rigid Auscultation: normoactive bowel sounds Skin General skin exam: elasticity normal Neuro General: patient oriented x3 Cranial nerves: Yes Equal, round and reactive pupils present and Yes Bilaterally intact EOM present Cognition (Neuro): normal cognition Extrem Other: Moving all extremities well without any obvious deformities Course Course Course Narrative: RME, this is a rapid medical exam performed by José Antonio Cook please refer to primary provider for complete H&P- 44-year-old female presents for evaluation of multiple complaints. She complains of numbness and tingling in her right hand and right calf. She also complains of right lower abdominal pain. She reports that she is about 10 weeks . She states that she had an outpatient ultrasound yesterday that showed an intrauterine gestation but no heart tones. However she is not having any abdominal pain yesterday. Plan for labs, EKG, ultrasound of the fetus and right lower extremity to rule out DVT Medical Decision Making Medical Decision Making MDM Narrative: 44-year-old female presents for evaluation of numbness, tingling, right lower abdominal pain. She is 10 weeks but yesterday reports that she had an intrauterine gestation with no her feet noted. Given that her pain is new it is likely that she is miscarrying and has a nonviable . Repeat ultrasound today shows a single intrauterine gestational sac with no visible fetus in thin internal septations concerning for an an embryonic . She has no vaginal bleeding but the cramping pain is likely her body beginning to terminate the . Ectopic is unlikely given the ultrasound that does not show any adnexal mass. EKG is normal sinus rhythm with a rate of [address] segment changes. Ultrasound of the right lower extremity is negative for DVT. I suspect her her numbness and tingling could be due to anxiety regarding her . The patient is requesting discharge. A pelvic exam was not yet performed the I do not see how it will change her course. Return precautions were given including severe worsening pain and heavy vaginal bleeding. She was encouraged to follow up with her OBGYN. Given that this is an empty gestational sac and the is less than 12 weeks, RhoGAM was consider but ultimately not indicated. Differential Diagnosis Differential Diagnoses: The differential diagnosis associated with the presentation includes Threatened Spontaneous Anechoic Ectopic Early Lab Data [facility] Lab Attestation statement: I reviewed the patient's lab results. No leukocytosis or anemia. Normal platelet count. No electrolyte abnormalities[place] [address] 10/13/24 12:04 10/13/24 12:04 Labs: Lab Results 10/13/24 Range/Units 12:04 WBC 6.3 (4.8-10.8) X10*3/uL RBC 4.82 (4.20-5.50) X10*6/uL Hgb 14.3 (12.0-16.0) g/dl Hct 42.2 (37.0-47.0) % MCV 87.6 (80.0-98.0) fL MCH 29.7 (27.0-33.0) pg MCHC 33.9 (31.0-35.0) g/dl RDW 12.8 (11.0-16.0) % Plt Count 233 (160-400) X10*3/uL MPV 10.8 (9.4-12.3) fL Immature Gran % (Auto) 0.3 (0.0-0.4) % Neut % (Auto) 57.8 (45-73) % Lymph % (Auto) 33.7 (20-40) % [facility] % (Auto) 6.8 (2-11) % Eos % (Auto) 0.9 (0-4) % Baso % (Auto) 0.5 (0-2) % Lymph # (Auto) 2.1 (1.2-4.9) X10*3/uL [facility] # (Auto) 0.4 (0.1-1.2) X10*3/uL Eos # (Auto) 0.1 (0.0-0.4) X10*3/uL Baso # (Auto) 0.0 (0.0-0.2) X10*3/uL Abs Immat Gran (auto) 0.02 (0.00-0.03) X10*3/uL Absolute Neuts (auto) 3.7 (2.0-8.3) x10*3/uL Absolute Nucleated RBC 0.000 (0.0-0.012) X10*3/uL Nucleated RBC % (auto) 0.0 (0.0-0.2) /100WBC Sodium 136 (135-145) mmol/L Potassium 4.0 D (3.3-5.1) mmol/L Chloride 104 (96-108) mmol/L Carbon Dioxide 24 (22-29) mmol/L Anion Gap 12 (12-20) BUN 12 (9-16) mg/dL Creatinine 0.57 (0.5-1.4) mg/dL Estim Creat Clear Calc 119.0 Estimated GFR > 60 Random Glucose 95 (60-115) mg/dL Calcium 10.4 H D (8.4-10.2) mg/dL Magnesium 1.6 (1.6-2.6) mg/dL Total Bilirubin 0.5 (0.0-1.0) mg/dL AST 48 H (5-31) U/L ALT 122 H (0-31) U/L Alkaline Phosphatase 84 (39-117) U/L Total Protein 7.1 (6.5-8.0) g/dL Albumin 4.5 (3.5-5.0) g/dL Lipase 15 (8-78) U/L Beta HCG, Quant 69141 mIU/mL Independent Interpretation I performed an independent interpretation of an: EKG (As above) and Ultrasound Interpretation: US/US OB pelvic and transvaginal IMPRESSION: Single intrauterine gestation sac with a mean diameter of 3.9 cm with no visible fetus and thin internal septations is concerning for an anembryonic . Electronically signed by: Eddie Jeong MD 10/13/2024 01:38 PM EDT RP FINDINGS: Respiratory variation, normal compression and augmented flow are noted throughout the right lower extremity. The visualized common femoral vein, superficial femoral vein, profunda femoral vein, popliteal vein and midcalf peroneal and posterior tibial venous segments show no evidence of deep venous thrombosis. US/US venous duplex LE RT IMPRESSION: No evidence of deep venous thrombosis involving the right lower extremity. Electronically signed by: Eddie Jeong MD 10/13/2024 01:28 PM EDT RP Discharge Plan Discharge Clinical Impression: Threatened Patient Disposition: Home, Self-Care Instructions: Threatened Miscarriage (ED) Additional Instructions: Your hormone today was [id number] Your ultrasound did not show anything within the gestational sac which is concerning for a nonviable You may begin to have abdominal cramping and vaginal bleeding Return for severe pain or heavy bleeding. Call your OBGYN to schedule follow-up as soon as possible Prescriptions: No Action loratadine 10 mg tablet 10 mg PO DAILY Qty: 90 6RF sennosides [Senna Laxative] 8.6 mg tablet 17.2 mg PO BEDTIME PRN (Reason: constipation) Qty: 60 4RF Linzess 290 mcg capsule 290 mcg PO QAM Qty: 30 3RF rosuvastatin 5 mg tablet 5 mg PO DAILY 90 Days Qty: 90 3RF epinephrine [EpiPen 2-Fausto] 0.3 mg/0.3 mL auto-injector 0.3 mg IM ONCE PRN (Reason: anaphylaxis) 2 Days Qty: 2 0RF Rx Instructions: for 2 doses ziprasidone HCl 20 mg capsule 20 mg PO BID 90 Days Qty: 180 1RF dextroamphetamine-amphetamine 15 mg tablet 15 mg PO BID PRN (Reason: attention) 30 Days Qty: 60 0RF multivitamin with folic acid [Daily-Zoraida (with folic acid)] 400 mcg tablet 1 tab PO DAILY 90 Days Qty: 90 3RF psyllium husk [Fiber (psyllium husk)] 0.52 gram capsule 0.52 g PO BID 60 Days Qty: 120 3RF omeprazole 20 mg capsule,delayed release(DR/EC) 20 mg PO BID Qty: 60 3RF benztropine 0.5 mg tablet 0.5 mg PO BEDTIME 90 Days Qty: 90 0RF oxcarbazepine 300 mg tablet 300 mg PO TID 90 Days Qty: 270 0RF cholecalciferol (vitamin D3) 25 mcg (1,000 unit) capsule 25 mcg PO DAILY 90 Days Qty: 90 1RF nicotine (polacrilex) 4 mg gum 4 mg buccal Q2H 30 Days Qty: 40 11RF clonazepam 1 mg tablet 1 mg PO Q8H PRN (Reason: anxiety) 30 Days Qty: 90 0RF bupropion HCl 300 mg tablet extended release 24 hr 300 mg PO QAM Qty: 90 3RF docusate sodium 100 mg capsule 100 mg PO DAILY Qty: 90 3RF Culturelle 10 billion cell capsule 1 cap PO DAILY 90 Days Qty: 90 1RF ferrous sulfate [Feosol] 325 mg (65 mg iron) tablet 325 mg PO DAILY Qty: 90 2RF Stand Alone Forms: Work/School Release Interventions: ED Discharge Assessment Last Done: 10/13/24 16:04 Discharge Date/Time: 10/13/24 16:06 Print Language: Armenian
--- NOTE | 2024-10-13 11:50 | ECG_ITS ---
Test Reason : CHEST PAIN Blood Pressure : */* mmHG Vent. Rate : 100 BPM Atrial Rate : 100 BPM P-R Int : 132 ms QRS Dur : 72 ms QT Int : 348 ms P-R-T Axes : -4 33 -9 degrees QTcB Int : 448 ms Normal sinus rhythm Normal ECG When compared with ECG of 25-May-2024 08:31, No significant change was found Referred By: Herb Cook Electronically Signed By: Alonzo De La Garza
[2024-10-13 12:12] LABS: MANUAL DIFF FLAG NO
[2024-10-13 12:15] LABS: Basophils Percent Auto 0.5 % (0-2); Eosinophils Absolute Auto 0.1 X10*3/uL (0.0-0.4); Eosinophils Percent Auto 0.9 % (0-4); Hematocrit 42.2 % (37.0-47.0); Hemoglobin 14.3 g/dl (12.0-16.0); Imm Gran Abs Auto 0.02 X10*3/uL (0.00-0.03); Imm Gran Pct Auto 0.3 % (0.0-0.4); Lymphocytes Absolute Auto 2.1 X10*3/uL (1.2-4.9); Lymphocytes Percent Auto 33.7 % (20-40); Mean Corpuscular HGB Conc 33.9 g/dl (31.0-35.0); Mean Corpuscular Hemoglobin 29.7 pg (27.0-33.0); Mean Corpuscular Volume 87.6 fL (80.0-98.0); Mean Platelet Volume 10.8 fL (9.4-12.3); Monocytes Absolute Auto 0.4 X10*3/uL (0.1-1.2); Monocytes Percent Auto 6.8 % (2-11); Neutrophils Absolute Auto 3.7 x10*3/uL (2.0-8.3); Neutrophils Percent Auto 57.8 % (45-73); Platelet Count 233 X10*3/uL (160-400); Red Blood Count 4.82 X10*6/uL (4.20-5.50); Red Cell Distribution Width 12.8 % (11.0-16.0); White Blood Count 6.3 X10*3/uL (4.8-10.8)
[2024-10-13 12:37] LABS: Alanine Aminotransferase 122 U/L (0-31); Albumin Level 4.5 g/dL (3.5-5.0); Alkaline Phosphatase 84 U/L (39-117); Anion Gap 12 (12-20); Aspartate Amino Transferase 48 U/L (5-31); Bilirubin Total 0.5 mg/dL (0.0-1.0); Blood Urea Nitrogen 12 mg/dL (9-16); Calcium 10.4 mg/dL (8.4-10.2); Carbon Dioxide 24 mmol/L (22-29); Chloride 104 mmol/L (96-108); Estimated Glomerular Filt Rate > 60; Glucose Random 95 mg/dL (60-115); Lipase 15 U/L (8-78); Magnesium 1.6 mg/dL (1.6-2.6); Sodium 136 mmol/L (135-145); Total Protein 7.1 g/dL (6.5-8.0)
[2024-10-13 15:50] VITALS: BP 113/86; PULSE 95; RESP 16; O2SAT 98
[2024-10-13 16:04] VITALS: BP 113/86; PULSE 95; RESP 16; TEMP 36.7; O2SAT 98
== END 2024-10-13 16:06 | disposition home or self-care (01) ==
PROVIDERS: Physician Assistant; Emergency Provider Emergency Medicine; PCP Internal Medicine
DX: O20.0 Threatened abortion (principal); O26.891 Other specified pregnancy related conditions, first trimester; M62.831 Muscle spasm of calf; M79.661 Pain in right lower leg; R20.0 Anesthesia of skin; R20.2 Paresthesia of skin; R10.31 Right lower quadrant pain; Z3A.10 10 weeks gestation of pregnancy
CPT/HCPCS: 36415; 76801; 76817; 80053; 83690; 83735; 84702; 85025; 93005; 93971; 99283; 99284

== ENCOUNTER → 2024-10-13 11:45 | Outpatient (BNV) | payer OTHER, SELFPAY | PROVIDERS: PCP Internal Medicine; Visit Provider Radiology Diagnostic Radiology | DX: R10.2 Pelvic and perineal pain (principal); O26.891 Other specified pregnancy related conditions, first trimester; Z3A.10 10 weeks gestation of pregnancy; M79.604 Pain in right leg | CPT/HCPCS: 76801; 76817; 93971 ==

== ENCOUNTER → 2024-10-13 11:50 | Outpatient (BNV) | payer OTHER, SELFPAY | PROVIDERS: Emergency Provider Emergency Medicine; PCP Internal Medicine; Visit Provider Internal Medicine Cardiovascular Disease | DX: R07.9 Chest pain, unspecified (principal) | CPT/HCPCS: 93010 ==

== ENCOUNTER 2024-10-26 12:55 | Outpatient (AMB) | payer OTHER, SELFPAY ==
--- NOTE | 2024-10-26 13:03 | A.OFFPC_ITS ---
Vital Signs 10/26/24 13:04 Height 5 ft 4 in Weight 146 lb BMI 25.1 BP 112/80 Blood Pressure Location Lt brachial Position Sitting Intake [place] [facility] [place] [employer] Required: No Accompanied by: Self / Same As Patient Allergies neomycin (NEOMYCIN) Allergy (Intermediate, Verified 10/26/24 13:18) FUNGAL INFECTION,bleeding naproxen (NAPROXEN) Allergy (Mild, Verified 10/26/24 13:18) HIVES zolpidem (From Ambien) Allergy (Verified 10/26/24 13:18) Weakness Medication List - Last Reconciled 10/26/24 by Allyson Rahman MD benztropine 0.5 mg PO BEDTIME 90 days bupropion HCl XL 300 mg PO QAM cholecalciferol (vitamin D3) 25 mcg PO DAILY 90 days clonazepam 1 mg PO Q8H PRN 30 days dextroamphetamine-amphetamine 15 mg 15 mg PO BID PRN 30 days docusate sodium 100 mg PO DAILY epinephrine (EpiPen 2-Fausto) 0.3 mg (0.3 mL) IM ONCE PRN 2 days ferrous sulfate (Feosol) 325 mg PO DAILY Lactobacillus rhamnosus GG (Culturelle) 1 cap PO DAILY 90 days linaclotide (Linzess) 290 mcg PO QAM loratadine 10 mg PO DAILY multivitamin with folic acid 400 mcg (Daily-Zoraida (with folic acid)) 1 tab PO DAILY 90 days nicotine (polacrilex) 4 mg buccal Q2H 30 days omeprazole 20 mg PO BID oxcarbazepine 300 mg PO TID 90 days psyllium husk (Fiber (psyllium husk)) 0.52 grams PO BID 60 days rosuvastatin 5 mg PO DAILY 90 days sennosides (Senna Laxative) 17.2 mg (2 x 8.6 mg) PO BEDTIME PRN tirzepatide (weight loss) (Zepbound) 7.5 mg (0.5 mL) subcut QWEEK 4 weeks ziprasidone HCl 20 mg PO BID 90 days Tobacco use date assessed: 07/02/24 Dental Screening Dental Screen Date: 07/02/24 HPI HPI Comments History of Present Illness Details The patient is a 44-year-old female presenting for a hospital discharge follow-up visit after a miscarriage. She has a history of bipolar disorder, PTSD, ADHD, depression, anxiety, and insomnia, all well controlled with medications, and she no longer follows with psychiatry. During her recent hospitalization, she was found to have transaminitis, with follow-up blood work and an ultrasound planned to evaluate her liver. She also has GERD, stable with PPIs, and dyslipidemia managed with statins. [facility] Medical History (Updated 10/27/24 @ 08:43 by Allyson Rahman MD) Transaminitis Dyslipidemia Bipolar 1 disorder Hx of chronic sinusitis ADD (attention deficit disorder) Depression Irritable bowel syndrome with both constipation and diarrhea Anxiety Surgical History Hx of colonoscopy History of incision and drainage Family History Father Hypertension CVD (cardiovascular disease) Mother Diabetes Maternal Grandmother Liver problem Maternal Grandfather No problems noted. Paternal Grandfather Cancer Family/Other FH: mental illness Paternal Aunt Breast cancer Family/Other Colon cancer Brother Liver disease Social History Household Members: Spouse and Children Housing: House Alcohol intake: former Patient Tobacco Use Status: Former Tobacco user Tobacco use type: Cigarette Cigarettes Per Day: 3 e-Cigarette/Vaping Use: Never Used Second Hand Smoke Exposure: No service: No Current occupational status: employed Current occupational exposures/hazards: No Cognitive needs: No Hearing needs: No Vision needs: No Female Reproductive History Menstrual Age of Menarche: 10 Questionnaire Thrive Questionnaire Date Thrive assessed: 07/02/24 OKSANA-7 AMB Questionnaire OKSANA-7 Date OKSANA - 7 assessed: 07/02/24 Source: Developed by Drs. Sravan Ruffin, Janny Graham, Rene Giang and colleagues, with an educational rancho from [employer]. Review of Systems Const All systems reviewed & are unremarkable except as noted in HPI and below Card Denies chest pain at rest, Denies chest pain with activity, Denies edema, Denies irregular heart rhythm, Denies claudication, Denies dyspnea, Denies dyspnea on exertion, Denies orthopnea, Denies paroxysmal nocturnal dyspnea and Denies slow heart rate Resp Denies cough, Denies dyspnea and Denies dyspnea on exertion GI Denies abdominal pain, Denies change in bowel habits, Denies excessive flatus, Denies nausea and Denies vomiting Neuro Denies lack of coordination Physical exam (Primary Care) Vital Signs: Last Vital Signs BP 112/80 10/26/24 13:04 BMI result Body Mass Index 25.1 Tobacco/Smoking Status: Tobacco use Status Tobacco use date assessed 07/02/24 10/26/24 13:07 Patient Tobacco Use Status Former Tobacco user 10/26/24 13:07 Tobacco use type Cigarette 10/26/24 13:07 e-Cigarette/Vaping Use Never Used 10/26/24 13:07 Thrive Assessment: Date of Thrive Assessment Date Thrive assessed 07/02/24 10/26/24 13:07 Resp Effort & Inspection: normal respiratory effort Auscultation: clear to auscultation bilaterally Cardio Jugular venous distension: no JVD Rate: regular rate Rhythm: regular rhythm Heart sounds: S1 normal heart sound present and S2 normal heart sound present Extrem General: Yes full ROM Coding Level of Care Code Est Pt Level 4 (40099) Complex EM visit Add On G2211 Diagnoses Hospital discharge follow-up Z09 Miscarriage O03.9 Bipolar 1 disorder F31.9 Anxiety F41.9 Gastroesophageal reflux disease, unspecified whether esophagitis present K21.9 Esophagitis presence: esophagitis presence not specified Transaminitis R74.01 Time Spent (min) 21 Assessment & Plan Assessment & Plan (1) Hospital discharge follow-up: Code(s): Z09 - Encounter for follow-up examination after completed treatment for conditions other than malignant neoplasm Category: Medical (2) Miscarriage: Code(s): O03.9 - Complete or unspecified spontaneous without complication Category: Medical (3) Bipolar 1 disorder: Code(s): F31.9 - Bipolar disorder, unspecified Category: Medical (4) Anxiety: Comment: very anxious, Hx short term memory loss 2010 Code(s): F41.9 - Anxiety disorder, unspecified Category: Medical (5) GERD (gastroesophageal reflux disease): Code(s): K21.9 - Gastro-esophageal reflux disease without esophagitis Category: Medical Qualifiers: Esophagitis presence: esophagitis presence not specified Qualified Code(s): K21.9 - Gastro-esophageal reflux disease without esophagitis (6) Transaminitis: Code(s): R74.01 - Elevation of levels of liver transaminase levels Category: Medical Plan The patient will maintain her current medication regimen for her psychiatric conditions, as they are well controlled. She will undergo follow-up blood work and an ultrasound to evaluate her liver function due to transaminitis. Management of GERD with PPIs and dyslipidemia with statins will continue. Patient was informed and verbally consented to the use of an ambient scribe for clinic note documentation during this visit. Orders: Orders Liver Panel 10/26/24 R74.01 - Elevation of levels of liver transaminase levels US abdomen dodge w elastography 10/26/24 R74.01 - Elevation of levels of liver transaminase levels
[2024-10-26 13:04] VITALS: BP 112/80; BMI 25.1
== END 2024-10-26 13:31 | disposition home or self-care (01) ==
LOC: HO.HMCH 12:55
PROVIDERS: PCP Internal Medicine; Visit Provider Internal Medicine
DX: Z09 Encounter for follow-up examination after completed treatment for conditions other than malignant neoplasm (principal); O03.9 Complete or unspecified spontaneous abortion without complication; F31.9 Bipolar disorder, unspecified; F41.9 Anxiety disorder, unspecified; K21.9 Gastro-esophageal reflux disease without esophagitis; R74.01 Elevation of levels of liver transaminase levels

== ENCOUNTER → 2024-10-26 12:55 | Outpatient (BNVA) | payer OTHER, SELFPAY | PROVIDERS: PCP Internal Medicine; Visit Provider Internal Medicine | DX: K21.9 Gastro-esophageal reflux disease without esophagitis (principal); F43.10 Post-traumatic stress disorder, unspecified; F90.9 Attention-deficit hyperactivity disorder, unspecified type; F41.9 Anxiety disorder, unspecified; E78.5 Hyperlipidemia, unspecified; F31.9 Bipolar disorder, unspecified; Z09 Encounter for follow-up examination after completed treatment for conditions other than malignant neoplasm; Z87.59 Personal history of other complications of pregnancy, childbirth and the puerperium; Z79.899 Other long term (current) drug therapy | CPT/HCPCS: 99212 ==

== ENCOUNTER 2024-10-28 14:58 | Outpatient (REF) | payer OTHER, SELFPAY ==
[2024-10-28 16:17] LABS: Alanine Aminotransferase 35 U/L (0-31); Albumin Level 4.7 g/dL (3.5-5.0); Alkaline Phosphatase 69 U/L (39-117); Aspartate Amino Transferase 21 U/L (5-31); Iron 70 mcg/dL (30-160); Percent Iron Saturation 26 % (15-50); Total Iron Binding Capacity 266 mcg/dL (228-428); Total Protein 7.0 g/dL (6.5-8.0); Unsaturated Iron Binding 196 ug/dL
== END 2024-10-28 14:59 | disposition home or self-care (01) ==
LOC: HO.LAB 14:58
PROVIDERS: PCP Internal Medicine; Visit Provider Internal Medicine
DX: D50.9 Iron deficiency anemia, unspecified (principal); R74.01 Elevation of levels of liver transaminase levels
CPT/HCPCS: 36415; 80076; 83540

== ENCOUNTER 2024-12-21 09:24 | Outpatient (REF) | payer OTHER, SELFPAY ==
--- NOTE | ~2024-12-21 | US_ITS ---
EXAMINATION: US ABDOMEN LIMITED WITH LIVER ELASTOGRAPHY HISTORY: R74.01 - Elevation of levels of liver transaminase levels TECHNIQUE: Real-time grayscale ultrasound imaging of the right upper quadrant was performed and images were reviewed. COMPARISON: Comparison is made with the prior examination dated 07/30/2023. FINDINGS: Liver: The right lobe of the liver measures 14.3 cm in size. The left lobe of the liver measures 7.8 cm in size. The liver demonstrates normal homogeneous echotexture. There is a cystic focus posterior to the gallbladder which is not as well visualized as on the prior study. No intrahepatic biliary ductal dilatation is identified. There is normal hepatopedal flow in the portal vein. Ultrasound elastography of the liver was performed with 10 separate measurements of the liver parenchyma with the patient in the supine position. Measurements were obtained approximately 2 cm below Jose's capsule and perpendicular to the capsule. The median shear wave velocity is 1.39 m/s. The interquartile range/median (IQR/median) is 0.05. Gallbladder and biliary tree: The gallbladder is unremarkable, without evidence of calculi, wall thickening, or pericholecystic fluid. There is no sonographic Cruz sign. The common bile duct is normal in caliber measuring 4 mm. Right Kidney: The right kidney measures 10.6 cm in length. The right kidney is unremarkable, without evidence of masses, hydronephrosis, or calculi. Pancreas: The pancreatic head, neck, and body are unremarkable. The pancreatic tail is obscured by bowel gas. Abdominal aorta and inferior vena cava: The visualized portions of the abdominal aorta and inferior vena cava are normal in caliber. There is no free fluid in the right upper quadrant. US/US abdomen dodge w elastography IMPRESSION: The previously seen cystic focus posterior to the gallbladder is less well visualized on the current study. Otherwise unremarkable right upper quadrant ultrasound. The median shear wave velocity in the liver is 1.39 m/s, corresponding to a median liver stiffness of 5.92 kPa. The IQR/median value is 0.05. This is indicative of a quality data set. Findings are indicative of a low elastography value which rules out advanced chronic liver disease in asymptomatic patients. REFERENCE: Society of Radiologists in Ultrasound Liver Stiffness Thresholds (2020): LIVER STIFFNESS THRESHOLDS: *Shear wave velocity less than 1.3 m/s (Liver Stiffness equal or less than 5 kPa): High probability of being normal. *Shear wave velocity less than 1.7 m/s (Liver Stiffness less than 9 kPa): In the absence of other known clinical signs, rules out compensated advanced chronic liver disease. *Shear wave velocity between 1.7-2.1 m/s (Liver Stiffness 9-13 kPa): Suggestive of compensated advanced chronic liver disease but need further test for confirmation. *Shear wave velocity between 2.1-2.4 m/s (Liver Stiffness 13-17 kPa): Rules in compensated advanced chronic liver disease. *Shear wave velocity greater than 2.4 m/s (Liver Stiffness over 17 kPa): Suggestive of clinically significant portal hypertension. QUALITY OF DATA SET: *IQR/Median value equal or less than 0.15 implies a quality data set. *IQR/Median value over 0.15 implies a poor quality data set. SIGNIFICANT CHANGE FROM PRIOR EXAM: Significant change if liver stiffness measurement is 10% or greater from prior exam. OTHER CONSIDERATIONS: The stage of liver fibrosis may be overestimated in the setting of acute hepatitis, liver inflammation, elevated liver function tests, hepatic vascular congestion, obstructive cholestasis, non-fasting state, and infiltrative diseases such as amyloidosis and lymphoma. In some patients with NAFLD, the liver stiffness thresholds for compensated advanced chronic liver disease may be lower. In causes other than viral hepatitis and NAFLD, liver stiffness thresholds are not well established. Electronically signed by: Sravan Crook MD 12/21/2024 10:44 AM EDT
--- OUTSIDE RECORDS SUMMARY | 2024-12-21 09:57 | XMS_ITS | Clinical Summary ---
Author Organization [facility] Address [address] [place] [address] Phone Care Team Providers Care Deputy Chief Counsel Name Role Phone Allyson Kaur MD Primary Care Provid er Allergies Active Allergy Reactions Criticality Noted Date Comments Other 10/04/2018 an antibiotic that starts with an N Medications amoxicillin (AMOXIL) 500 MG capsule Take 500 mg by mouth 3 (three) times a day. Active acetaminophen-cod eine (TYLENOL #2) 300-15 mg per tablet Take 1 tablet by mouth every 4 (four) hours as needed for pain (specific location in comments). Active clonazePAM (KLONOPIN) 1 MG tablet Take 1 mg by mouth 3 (three) times a day as needed for anxiety. Active ZIPRASIDONE HCL ORAL Take by mouth. Activ e plecanatide (TRULANCE) 3 mg Tab Take 3 mg by mouth daily. Active ibuprofen (ADVIL,MOTRIN) 600 MG tablet Take 600 mg by mouth every 6 (six) hours as needed for pain (specific location in comments). Active dextroamphetamine -amphetamine (ADDERALL) 15 mg Tab tablet Take 15 mg by mouth 2 (two) times a day. Active omeprazole (PRILOSEC) 20 MG tablet Take 20 mg by mouth daily. Active Lactobacillus acidophilus (ACIDOPHILUS) Cap Take by mouth. Active senna (SENOKOT) 8.6 mg tablet Take 2 tablets by mouth daily. Active calcium polycarbophil (FIBER-LAX ORAL) Take by mouth. Active OXcarbazepine (TRILEPTAL) 300 MG tablet Take 300 mg by mouth 2 (two) times a day. Active benztropine (COGENTIN) 0.5 MG tablet Take 0.5 mg by mouth 2 (two) times a day. Active loratadine (CLARITIN) 10 mg tablet Take 10 mg by mouth daily. Active LACTULOSE ORAL Take by mouth. Active sulfamethoxazole- trimethoprim (BACTRIM DS) 800-160 mg per tablet Take 1 tablet (160 mg of trimethoprim total) by mouth 2 (two) times a day. 14 tablet 10/06/19 19 Active phenazopyridine (PYRIDIUM) 200 MG tablet Take 1 tablet (200 mg total) by mouth 3 (three) times a day as needed for pain (specific location in comments). 10 tablet 10/06/19 19 Active Social History Tobacco Use Types Packs/Day Years Used Date Smoking Tobacco: Some Days Alcohol Use Standard Drinks/Week Comments Not Currently 0 (1 standard drink = 0.6 oz pur e alcohol) socially Education Answer Date Recorded Are you interested in more education? Not on alvarado e 08/23/2022 Are you concerned about learning? Not on file 08/23/2022 No 08/23/2022 No 08/23/2022 Digital Access Answer Date Recorded No 09/23/2022 No 09/23/2022 No 09/23/2022 Reliable internet access at home? Not on file 09/23/2022 Device with a working camera? Not on file Comments Unknown Sex and Gender Information Value Date Recorded Sex Assigned at Female 10/04/2018 11:30 PM EDT Legal Sex Female 9:21 PM EDT Gender Identity Female 10/04/2018 11:30 PM EDT Sexual Orientation Not on file Last Filed Vital Signs Vital Sign Reading Time Taken Comments Blood Pressure 126/82 10/04/2018 11:21 PM EDT Pulse 108 10/04/2018 11:21 PM EDT Temperature 36.8 C (98.2 F) 10/04/2018 11:21 PM EDT Respiratory Rate 19 10/04/2018 11:21 PM EDT Oxygen Saturation 95% 10/04/2018 11:21 PM EDT Inhaled Oxygen Concentration - - Weight 72.6 kg (160 lb) 10/04/2018 11:21 PM EDT Height 160 cm (5' 3 ) 10/04/2018 11:21 PM EDT Body Mass Index 28.34 10/04/2018 11:21 PM EDT Plan of Treatment Health Maintenance Due Date Last Done Comments DEPRESSION SCREENING 1992 HEPATITIS C SCREENING 1998 HIV ONE-TIME SCREENING (18-6 5 YEARS) 1998 PAP SMEAR 2001 MAMMOGRAM 2020 COVID-19 VACCINE (3 - 2023-2 5 season) 2023 05/24/2021, 09/07/2020 INFLUENZA VACCINE (#1) 2024 2, 05/24/2019, 04/08/2016 Adult Td,Tdap Booster 04/08/2026 04/08/2016 HEPATITIS A VACCINES Aged Out No long er eligible based on patient's age to complete this topic HIB VACCINES Aged Out No longer eligi ble based on patient's age to complete this topic MENINGOCOCCAL VACCINES (ACWY) Aged Out No longer eligible based on patient's age to complete this topic MENINGOCOCCAL VACCINES (B) Aged Out N o longer eligible based on patient's age to complete this topic PNEUMOCOCCAL VACCINES (0-49 years) Aged Out No longer eligible b ased on patient's age to complete this topic Medical Devices Not on file [place] [address] [address] [place] [address] MEDICARE REPLACEMENT [place] [id number] [employer] CARE MEDICARE REPLACEMENT MEDICARE REPLACEMENT MEDICARE REPLACEMENT CARE MEDICARE REPLACEMENT CARE MEDICARE REPLACEMENT MEDICARE REPLACEMENT CARE MEDICARE REPLACEMENT [facility] ONE CARE MEDICARE REPLACEMENT Care Teams Deputy Chief Counsel Relationship Specialty Start Date End Date Allyson Kaur MD [address] [place] [address] PCP - General Internal Medicine 10/04/18 Additional Source Comments The information contained in this document represents components of the legal health record. It is not the complete legal health record.[facility]
== END 2024-12-21 09:25 | disposition home or self-care (01) ==
LOC: HO.US 09:24
PROVIDERS: PCP Internal Medicine; Visit Provider Internal Medicine
DX: R74.01 Elevation of levels of liver transaminase levels (principal)
CPT/HCPCS: 76705; 76981

== ENCOUNTER → 2024-12-21 09:31 | Outpatient (BNV) | payer OTHER, SELFPAY | PROVIDERS: PCP Internal Medicine; Visit Provider Radiology Diagnostic Radiology | DX: R74.01 Elevation of levels of liver transaminase levels (principal) | CPT/HCPCS: 76705 ==

== ENCOUNTER 2025-01-06 12:39 | Outpatient (AMB) | payer OTHER, SELFPAY ==
--- NOTE | 2025-01-06 12:44 | MHC.OFFVIS ---
Vital Signs 01/06/25 12:46 Height 5 ft 4 in Weight 141 lb BMI 24.2 BP 112/78 Blood Pressure Location Lt brachial Position Sitting Pulse 74 Pulse Oximetry (%) 96 Oxygen Delivery Method Room Air Intake Visit Reasons: abdominal bloating Intake Note: Patient follow up for abdominal bloating Patient cc: abdominal bloating, acid reflux, constipation on and off, some swallowing difficulties and lost weight. 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: No Accompanied by: Self / Same As Patient Allergies neomycin (NEOMYCIN) Allergy (Intermediate, Verified 01/06/25 13:16) FUNGAL INFECTION,bleeding naproxen (NAPROXEN) Allergy (Mild, Verified 01/06/25 13:16) HIVES zolpidem (From Ambien) Allergy (Verified 01/06/25 13:16) Weakness Medication List - Last Reconciled 01/06/25 by Krys Bertrand MD benztropine 0.5 mg PO BEDTIME 90 days bupropion HCl XL 300 mg PO QAM cholecalciferol (vitamin D3) 25 mcg PO DAILY 90 days clonazepam 1 mg PO Q8H PRN 30 days dextroamphetamine-amphetamine 15 mg 15 mg PO BID PRN 30 days docusate sodium 100 mg PO DAILY epinephrine (EpiPen 2-Fausto) 0.3 mg (0.3 mL) IM ONCE PRN 2 days ferrous sulfate (Feosol) 325 mg PO DAILY Lactobacillus rhamnosus GG (Culturelle) 1 cap PO DAILY 90 days linaclotide (Linzess) 290 mcg PO QAM loratadine 10 mg PO DAILY multivitamin with folic acid 400 mcg (Daily-Zoraida (with folic acid)) 1 tab PO DAILY 90 days nicotine (polacrilex) 4 mg buccal Q2H 30 days omeprazole 20 mg PO BID oxcarbazepine 300 mg PO TID 90 days psyllium husk (Fiber (psyllium husk)) 0.52 grams PO BID 60 days rosuvastatin 5 mg PO DAILY 90 days sennosides (Senna Laxative) 17.2 mg (2 x 8.6 mg) PO BEDTIME PRN simethicone (Gas Relief (simethicone)) 125 mg PO BID-QID PRN 30 days tirzepatide (weight loss) (Zepbound) 15 mg (0.5 mL) subcut QWEEK 4 weeks ziprasidone HCl 20 mg PO BID 90 days HPI HPI abdominal bloating: Details: GI CLINIC VISIT FOR THIS 44 YF (PREVIOUSLY FOLLOWED BY JULIA MAGANA NP) for FU of GERD AND IBS CHRONIC ILLNESSES: chronic fatigue syndrome, anxiety and depression, bipolar disorder, GERD (gastroesophageal reflux disease, IBS (irritable bowel syndrome), 2010 episode of short-term memory loss pain of right hip joint, constipation, unspecified, ADD TODAY'S VISIT: Patient cc: abdominal bloating, acid reflux, constipation on and off, some swallowing difficulties and lost weight. Had a miscarriage after an unplanned Complains of a sore throat Taking Zepbound and continuing to loose weight - target weight is 135 Continues to have abd bloating and constipation. BMs are dark, taking iron for the past 2 months. Taking Linzess intermittently three times a month and notes abdominal cramps after taking it. Pt was advised to take Linzess once a week PAST VISITS: Lost 15 lbs (On Wegovy for high blood pressure) Notes increased gas since she started taking Wegovy Takes Senna at night and Linzess in the morning. Having regular BMs Trying tp stay away from milk products - notes constipation and bloating after milk products. Patient cc: abdominal pain, heartburn, and constipation Patient cc: constipation on and off , also patient wanted to know the correct med for constipation because pharmacy said she can not be in both/ senna and bisacodyl. Two week ago - No BM x 2 days despite taking Linzess Took senna and had bad abdominal cramps Had a Pap smear and was told she had bacterial dysbiosis Takes Linzess 290 mcg every morning and has not been taking the senna Intermittent watery BMs. Tries to have a BM every day. She was taking iron pills daily for ANKUR (related to menstrual blood loss) and stopped taking it after she had Has not been taking iron for the past 2 weeks PAST VISIT: Takes Linzess in the morning Takes fibre pills every day Takes Senna and bisacodyl at bedtime prn for constipation - advised to take Senna daily at bedtime and use Bisacodyl 3-4 times a month prn. Feels abdomen is swollen after she takes Senna Using Ryze instead of coffee - helps get rid of toxins Started a new job ([employer]) from 7 am to 3 pm and has more stress - diet is not good and abdomen feels bloated Everything she eats makes her bloated or goes through her. Gets constipated when she takes water melon with seeds Trying to excercise Lost her brother at age 39 - had fatty liver, had kidney stones and became septic and . Lost wt after her brother . Feeling better - medications are helpful My stomach has been better Taking all the medications Following a bowel program and takes a stool softener, senna, psyllium husk capsule, Linzess and Dulcolax p.r.n. Has a BM daily Has problems if she does not take the Senna Changed her diet and exercising more She would like to switch from Trulance back to Linzess. She feels hungry after she has a BM and thinks she is gaining wt due to Trulance. EGD and colon results reviewed with the patient. Noted spontaneous bruising 2 days after colonoscopy. I have no pain, I poop normal When she takes her medication - she has a 2nd BM in the day. Take dicyclomine at bedtime Lost a few lbs due to taking more fibre in her diet. ? Pain is not so bad ? Continues to have abdominal bloating ? [place] stomach was hurting more after she took dicyclomine. ? Did not like Linzess since she felt she was gaining weight. ? Had trouble loosing weight despite excercising and felt something was wrong with her thyroid. ? Patient denies black stools or rectal bleeding ? Both parents have DM. ? Denies known FH of colon polyps or colon cancer, ? Two paternal cousins have Crohn's disease ? Denies known FH of IBS, Celiac?disease LABS IN [facility]: 11/13 REVIEWED IMAGING STUDIES: 03/16 upper GI with small-bowel follow-through showed: ? IMPRESSION: ? Mild gastroesophageal reflux otherwise unremarkable upper GI exam ? Normal small bowel follow-through time of less than 30 minutes. ? No mucosal abnormality, narrowing or stricture seen involving the small ? bowel loops. The ileocecal junction is normal. Appendix is normal. ENDOSCOPIC STUDIES:? 12/15/23 COLONOSCOPY SHOWED: Colonoscopy Findings: No polyps were detected Moderate diverticulosis seen in the sigmoid colon small hemorrhoids on retroflexed exam. Plan: Repeat Colonoscopy in 5 years due to family hx of colon cancer Pt placed on the colonoscopy recall list. 10/31/20 EGD AND COLONOSCOPY SHOWED: Endoscopy Findings: STOMACH: Gastritis - negative for HP DUODENUM: Normal - biopsied to check for celiac sprue - normal Colonoscopy Findings:? No polyps were detected. Random biopsies were obtained from the right and left colon - normal Moderate diverticulosis seen in the sigmoid colon Plan:? Patient has an appointment on 11/16/20 in the GI Clinic with Krys Bertrand M.D.. Repeat Colonoscopy interval based on path results - in 5 years due to fair to poor prep. [facility] Medical History Transaminitis Dyslipidemia Bipolar 1 disorder Hx of chronic sinusitis ADD (attention deficit disorder) Depression Irritable bowel syndrome with both constipation and diarrhea Anxiety Surgical History Hx of colonoscopy History of incision and drainage Family History Father Hypertension CVD (cardiovascular disease) Mother Diabetes Maternal Grandmother Liver problem Maternal Grandfather No problems noted. Paternal Grandfather Cancer Family/Other FH: mental illness Paternal Aunt Breast cancer Family/Other Colon cancer Brother Liver disease Social History Household Members: Spouse and Children Housing: House Alcohol intake: former Patient Tobacco Use Status: Former Tobacco user Tobacco use type: Cigarette Cigarettes Per Day: 3 e-Cigarette/Vaping Use: Never Used Second Hand Smoke Exposure: No service: No Current occupational status: employed Current occupational exposures/hazards: No Cognitive needs: No Hearing needs: No Vision needs: No Female Reproductive History Menstrual Age of Menarche: 10 Review of Systems Const Reports fatigue, Denies fever(s), Reports headache(s) and Reports weight loss (5 lbs on Zepbound) Eyes Denies eye discharge and Denies irritation ENT Reports Normal hearing present, Denies dysphagia, Denies dizziness, Reports headache(s) and Reports sore throat (sometimes) Card Denies chest pain, Denies leg edema and Denies dyspnea on exertion Resp Denies cough, Denies dyspnea on exertion and Denies wheezing GI Reports abdominal pain, Reports bloating, Denies change in bowel habits, Reports constipation, Denies dysphagia, Reports heartburn and Reports other (black stools due to oral iron) Denies difficulty voiding and Denies dysuria Musc Reports back pain, Reports arthralgias and Reports other (Arthritis) Skin/Breast Denies pruritus, Denies rash and Denies jaundice Neuro Reports Normal hearing present, Denies Abnormal speech present, Denies dizziness, Reports headache(s) and Denies seizure-like activity Psych Reports anxiety (Sometimes), Reports depression (Sometimes) and Denies panic attacks Endo Denies cold intolerance, Reports fatigue, Denies flushing and Denies heat intolerance Kayden/Lymph Denies easy bleeding and Denies easy bruising Aller/Immun Denies wheezing Physical Exam Vital Signs: Last Vital Signs Pulse 74 01/06/25 12:46 BP 112/78 01/06/25 12:46 Pulse Ox 96 01/06/25 12:46 Oxygen Delivery Method Room Air 01/06/25 12:46 BMI result Body Mass Index 24.2 Const General: healthy appearing and no acute distress Nutritional Appearance: average body habitus Orientation/consciousness: patient oriented x3 Limitations: no limitations HEENT Head: Yes normal to inspection Ears: hearing grossly normal bilaterally Eyes Sclerae: sclerae normal Pupils: Equal, round and reactive pupils present Neck Neck: Yes normal visual inspection Chest Chest palpation & inspection: normal inspection of the chest Resp Effort & Inspection: normal respiratory effort Auscultation: clear to auscultation bilaterally Cardio Palpation: normal PMI Rate: regular rate Rhythm: regular rhythm Heart sounds: S1 normal heart sound present, S2 normal heart sound present and no murmurs GI Palpation (GI): Soft to palpation, nontender and No hepatosplenomegaly present Auscultation: normal bowel sounds Rectal Exam - Female: deferred Skin General skin exam: no rashes or lesions noted Neuro General: patient oriented x3, gait normal and moves all extremities Cranial nerves: Yes Equal, round and reactive pupils present and Yes Normal hearing present Speech: No Abnormal speech present Psych Appearance: grossly normal Mental Status: mental status grossly normal Assessment & Plan Assessment & Plan (1) Irritable bowel syndrome with both constipation and diarrhea: Code(s): K58.2 - Mixed irritable bowel syndrome Category: Medical (2) GERD (gastroesophageal reflux disease): Code(s): K21.9 - Gastro-esophageal reflux disease without esophagitis Category: Medical Qualifiers: Esophagitis presence: esophagitis presence not specified Qualified Code(s): K21.9 - Gastro-esophageal reflux disease without esophagitis (3) Elevated LFTs: Code(s): R79.89 - Other specified abnormal findings of blood chemistry Category: Medical (4) Abdominal bloating: Code(s): R14.0 - Abdominal distension (gaseous) Category: Medical (5) Chronic constipation: Code(s): K59.09 - Other constipation Category: Medical (6) Iron deficiency anemia: Code(s): D50.9 - Iron deficiency anemia, unspecified Category: Medical Plan 44 YF with chronic fatigue syndrome, anxiety and depression, bipolar disorder, GERD (gastroesophageal reflux disease, IBS (irritable bowel syndrome), 2010 episode of short-term memory loss, pain of right hip joint, constipation, unspecified, ADD seen for a 2nd opinion for evaluation of abdominal pain, GERD, diarrhea alternating with constipation. She complains of heartburn with breakthrough symptoms despite taking omeprazole 20 mg twice daily Notes abdominal pain with intake of certain foods - water melon, other foods with seeds, fried foods and eggs (scrambled eggs are OK) . ? of Lactose intolerance and drinks almond milk. Abdominal pain is likely due to diarrhea predominant IBS. Patient was advised to continue taking fiber supplement and dicyclomine 20 mg 3 times daily p.r.n. for abdominal pain. Pt was switched to Linzess 290 mcg daily at her request since she feels she is gaining weight since she started taking Trulance. Following a bowel program and takes a stool softener, senna, psyllium husk capsule, Linzess and Dulcolax p.r.n. 03/06/23 Pt would like to resume a FODMAP diet (was helpful for her symptoms in the past) Pt handout on FODMAP diet given to the patient. 07/10/23 Two week ago - No BM x 2 days despite taking Linzess Took senna and had bad abdominal cramps Had a Pap smear and was told she had bacterial dysbiosis Takes Linzess 290 mcg every morning and has not been taking the senna Intermittent watery BMs. Tries to have a BM every day. She was taking iron pills daily for ANKUR (related to menstrual blood loss) and stopped taking it after she had Has not been taking iron for the past 2 weeks Pt was advised to have CBC checked for FU of ANKUR Patient advised to take Linzess daily. In addition to take Dulcolax 2 tablets once a month to prevent obstipation/fecal impaction. Elevated LFTs likely due to fatty liver. LFTs have decreased after wt loss of 10 lbs. Schedule abdominal US for FU of elevated LFTs Patient was advised to schedule a colonoscopy (screening and chronic constipation) Poor prep on previous colonoscopy in 2020. She was advised to take Dulcolax 2 tablets daily starting 5 days prior to colonoscopy appointment 11/2023 colonoscopy was performed and results as noted. Advised repeat colon in 5 yrs. 01/06/25 Pt advised to take Linzess weekly for constipation Check labs in 2 months - follow-up of iron-deficiency anemia. FU in 4 months Orders: Orders Ferritin Today D50.9 - Iron deficiency anemia, unspecified Complete Blood Count no Diff Today D50.9 - Iron deficiency anemia, unspecified Liver Panel Today R79.89 - Other specified abnormal findings of blood chemistry Coding Level of Care Code Est Pt Level 4 (11275) Diagnoses Irritable bowel syndrome with both constipation and diarrhea K58.2 Gastroesophageal reflux disease, unspecified whether esophagitis present K21.9 Esophagitis presence: esophagitis presence not specified Elevated LFTs R79.89 Abdominal bloating R14.0 Chronic constipation K59.09 Iron deficiency anemia D50.9 Time Spent (min) 24
[2025-01-06 12:46] VITALS: BP 112/78; PULSE 74; O2SAT 96; BMI 24.2
--- OUTSIDE RECORDS SUMMARY | 2025-01-06 16:50 | XMS_ITS | Clinical Summary ---
Author Organization [facility] Address [address] [place] [address] Phone Care Team Providers Care Rn New Graduate Name Role Phone Allyson Kaur MD Primary [...] topic Medical Devices Not on file [place] [address] [place] [address] MEDICARE REPLACEMENT [place] [place] [id number] [employer] ONE CARE MEDICARE REPLACEMENT MEDICARE REPLACEMENT MEDICARE REPLACEMENT CARE MEDICARE REPLACEMENT CARE MEDICARE REPLACEMENT MEDICARE REPLACEMENT CARE MEDICARE REPLACEMENT [facility] ONE CARE MEDICARE REPLACEMENT Care Teams Rn New Graduate Relationship Specialty Start Date End Date Allyson Kaur MD [address] [place] [address] PCP - General Internal Medicine 10/04/18 Additional Source Comments The information contained in this document represents components of the legal health record. It is not the complete legal health record.[facility]
== END 2025-01-06 14:12 | disposition home or self-care (01) ==
LOC: HO.HGI 12:39
PROVIDERS: PCP Internal Medicine; Visit Provider Internal Medicine Gastroenterology
DX: K58.2 Mixed irritable bowel syndrome (principal); K21.9 Gastro-esophageal reflux disease without esophagitis; R79.89 Other specified abnormal findings of blood chemistry; R14.0 Abdominal distension (gaseous); K59.09 Other constipation; D50.9 Iron deficiency anemia, unspecified
CPT/HCPCS: 99214

== ENCOUNTER → 2025-01-06 12:39 | Outpatient (BNVA) | payer OTHER, SELFPAY | PROVIDERS: PCP Internal Medicine; Visit Provider Internal Medicine Gastroenterology | DX: K58.2 Mixed irritable bowel syndrome (principal); K21.9 Gastro-esophageal reflux disease without esophagitis; R79.89 Other specified abnormal findings of blood chemistry; R14.0 Abdominal distension (gaseous); K59.09 Other constipation; D50.9 Iron deficiency anemia, unspecified; R63.4 Abnormal weight loss | CPT/HCPCS: 99212 ==